=== PATIENT | female | born 1975 | race Two or more races ===

== ENCOUNTER 2018-03-04 18:06 | Emergency (ER) | payer MEDICAID ==
[2018-03-04] MEDS ORDERED: Sodium Chloride 0.9% 10 ML Syringe FLUSH PRN (18:41)
[2018-03-04] MEDS ORDERED: Ondansetron 4 MG/2 ML SDV IVPUSH ONE (18:41)
[2018-03-04] MEDS ORDERED: Famotidine 20 MG/2 ML SDV IVPUSH ONE (18:41)
[2018-03-04] MEDS ORDERED: HYDROmorphone 0.5 MG/0.5 ML SYRINGE IVPUSH ONE ×2 (18:41→19:52)
[2018-03-04] MEDS ORDERED: Sodium Chloride 0.9% 1,000 ML IV SCH (18:45)
--- NOTE | 2018-03-04 20:17 | EDM.PDOC ---
ED HPI GENERAL MEDICAL PROBLEM - General Chief Complaint: Flank Pain Stated Complaint: KIDNEY PAIN/STOMACH PAIN Time Seen by Provider: 03/04/18 18:31 Source of Information: Reports: Patient, RN Notes Reviewed - History of Present Illness INITIAL COMMENTS - FREE TEXT/NARRATIVE: 42 year old female with upper abd pain that radiates to back, some nausea, has not vomited. Worried about possible kidney stone. Also hx of gastritis. No chest pain or difficulty breathing. no fever or chills. Left Flank Pain Score (Numeric/FACES): 7 - Related Data Allergies Allergy/AdvReac Type Severity Reaction Status Date / Time azithromycin Allergy Vomiting Verified 03/04/18 18:21 codeine Allergy Vomiting Verified 03/04/18 18:21 doxycycline Allergy Vomiting Verified 03/04/18 18:21 morphine Allergy Vomiting Verified 03/04/18 18:21 Penicillins Allergy Vomiting Verified 03/04/18 18:21 Home Meds: Home Meds Famotidine 40 mg PO DAILY 03/04/18 [History] Fexofenadine [Shefali] 180 mg PO DAILY 03/04/18 [History] Fluticasone Propionate [Flovent] 1 puff IH BID 03/04/18 [History] Metoprolol Succinate 50 mg PO DAILY 03/04/18 [History] Triamterene/Hydrochlorothiazid [Triamterene-HCTZ 37.5-25 MG] 1 each PO DAILY [History] amLODIPine [Norvasc] 5 mg PO DAILY 03/04/18 [History] tiZANidine HCl [Tizanidine HCl] 4 mg PO DAILY 03/04/18 [History] Past Medical History Cardiovascular History: Reports: Hypertension Gastrointestinal History: Reports: Diverticulosis, GERD, Other (See Below) Genitourinary History: Reports: Renal Calculus [employer] History: Reports: Neurological History: Reports: Migraines - Past Surgical History GI Surgical History: Reports: Hernia Repair/Other Female Surgical History: Reports: Section, Lithotripsy/ESWL Social & Family History - Tobacco Use Smoking Status *Q: Never Smoker Second Hand Smoke Exposure: No - Caffeine Use Caffeine Use: Reports: None - Recreational Drug Use Recreational Drug Use: No ED ROS GENERAL - Review of Systems Review Of Systems: See Below Constitutional: Denies: Fever, Chills, Diaphoresis HEENT: Reports: No Symptoms Respiratory: Denies: Shortness of Breath, Pleuritic Chest Pain Cardiovascular: Denies: Chest Pain GI/Abdominal: Reports: Abdominal Pain, Nausea. Denies: Diarrhea, Vomiting Musculoskeletal: Reports: Back Pain Skin: Reports: No Symptoms Neurological: Reports: No Symptoms ED EXAM, GI/ABD - Physical Exam Exam: See Below General Appearance: Alert, Mild Distress Eyes: Bilateral: Normal Appearance Throat/Mouth: Normal Inspection, Normal Oropharynx Neck: Supple, Full Range of Motion Respiratory/Chest: No Respiratory Distress, Lungs Clear, Normal Breath Sounds Cardiovascular: Regular Rate, Rhythm GI/Abdominal Exam: Soft, Tender (upper mid abd). No: Guarding, Rebound Back Exam: No: CVA Tenderness (L), CVA Tenderness (R) Extremities: Normal Inspection, Normal Range of Motion Neurological: Alert, Oriented, No Motor/Sensory Deficits Skin Exam: Warm, Dry, Normal Color Course - Vital Signs Last Recorded V/S: Last Vital Signs Temp 98 F 03/04/18 18:18 Pulse 72 03/04/18 18:18 Resp 18 03/04/18 18:18 BP 157/112 H 03/04/18 18:18 Pulse Ox 100 03/04/18 18:18 - Orders/Labs/Meds Orders: Active Orders 24 hr Category Date Time Status Peripheral IV Care [RC] . DIRECTED Care 03/04/18 18:42 Active Abdomen 2V AP Flat Upright [CR] Stat Exams 03/04/18 19:52 Taken UA W/MICROSCOPIC [URIN] Stat Lab 03/04/18 18:25 Ordered Peripheral IV Insertion Adult [OM.PC] Stat Oth 03/04/18 18:41 Ordered Labs: Laboratory Tests 03/04/18 03/04/18 03/04/18 Range/Units 18:25 18:35 18:35 WBC 8.56 (3.98-10.04) K/mm3 RBC 4.42 (3.98-5.22) M/mm3 Hgb 12.9 (11.2-15.7) gm/L Hct 39.0 (34.1-44.9) % MCV 88.2 (79.4-94.8) fl MCH 29.2 (25.6-32.2) pg MCHC 33.1 (32.2-35.5) g/dl RDW Std Deviation 41.3 (36.4-46.3) fL Plt Count 409 H (182-369) K/mm3 MPV 9.9 (9.4-12.3) fl Neut % (Auto) 54.8 (34.0-71.1) % Lymph % (Auto) 30.3 (19.3-51.7) % Zapata % (Auto) 13.1 H (4.7-12.5) % Eos % (Auto) 1.2 (0.7-5.8) Baso % (Auto) 0.4 (0.1-1.2) % Neut # (Auto) 4.70 (1.56-6.13) K/mm3 Lymph # (Auto) 2.59 (1.18-3.74) K/mm3 [place]ata # (Auto) 1.12 H (0.24-0.36) K/mm3 Eos # (Auto) 0.10 (0.04-0.36) K/mm3 Baso # (Auto) 0.03 (0.01-0.08) K/mm3 Sodium 136 (136-145) mEq/L Potassium 3.2 L (3.5-5.1) mEq/L Chloride 100 (98-107) mEq/L Carbon Dioxide 24 (21-32) mEq/L Anion Gap 15.2 H (5-15) BUN 15 (7-18) mg/dL Creatinine 0.9 (0.55-1.02) mg/dL Est Cr Clr Drug Dosing 65.98 mL/min Estimated GFR (MDRD) > 60 (>60) mL/min BUN/Creatinine Ratio 16.7 (14-18) Glucose 84 (74-106) mg/dL Calcium 9.4 (8.5-10.1) mg/dL Total Bilirubin 0.2 (0.2-1.0) mg/dL AST 17 (15-37) U/L ALT 19 (14-59) U/L Alkaline Phosphatase 86 (46-116) U/L Total Protein 8.9 H (6.4-8.2) g/dl Albumin 4.4 (3.4-5.0) g/dl Globulin 4.5 gm/dL Albumin/Globulin Ratio 1.0 (1-2) Lipase 67 L (73-393) U/L Urine Color Yellow (Yellow) Urine Appearance Clear (Clear) Urine pH 7.0 (5.0-8.0) Ur Specific Chandler 1.020 (1.005-1.030) Urine Protein Negative (Negative) Urine Glucose (UA) Negative (Negative) Urine Ketones Negative (Negative) Urine Occult Blood Negative (Negative) Urine Nitrite Negative (Negative) Urine Bilirubin Negative (Negative) Urine Urobilinogen 0.2 (0.2-1.0) Ur Leukocyte Esterase Negative (Negative) Urine RBC Not seen (0-5) /hpf Urine WBC 0-5 (0-5) /hpf Ur Epithelial Cells 5-10 H (0-5) /hpf Urine Bacteria Not seen (FEW) /hpf Urine Mucus Not seen (FEW) /hpf Meds: Medications Discontinued Medications Generic Name Dose Route Start Last Admin Trade Name Freq PRN Reason Stop Dose Admin Famotidine 20 mg 03/04/18 18:41 03/04/18 18:59 Pepcid IVPUSH 03/04/18 18:42 20 mg ONETIME ONE Administration Hydromorphone HCl 0.5 mg 03/04/18 18:41 03/04/18 18:56 Dilaudid IVPUSH 03/04/18 18:42 0.5 mg ONETIME ONE Administration Hydromorphone HCl 0.5 mg 03/04/18 19:52 03/04/18 20:12 Dilaudid IVPUSH 03/04/18 19:53 0.5 mg ONETIME ONE Administration Sodium Chloride 1,000 mls @ 999 mls/hr 03/04/18 18:45 03/04/18 18:54 Normal Saline IV 999 mls/hr ONETIME GODWIN Administration Magnesium Citrate 296 ml 03/04/18 20:30 03/04/18 20:45 Citrate Of Magnesia PO 03/04/18 20:31 296 ml ONETIME ONE Administration Metoclopramide HCl 5 mg 03/04/18 20:30 03/04/18 20:44 Reglan IVPUSH 03/04/18 20:31 5 mg ONETIME ONE Administration Ondansetron HCl 4 mg 03/04/18 18:41 03/04/18 18:54 Zofran IVPUSH 03/04/18 18:42 4 mg ONETIME ONE Administration Sodium Chloride 10 ml 03/04/18 18:41 03/04/18 18:57 Saline Flush FLUSH 10 ml ASDIRECTED PRN Administration Keep Vein Open - Re-Assessments/Exams Free Text/Narrative Re-Assessment/Exam: 03/04/18 22:03 labs are good, increased stool in colon, no hematuria, discharge instr. as documented. Departure - Departure Time of Disposition: 20:44 Disposition: Home, Self-Care 01 Condition: Fair Clinical Impression: Gastritis Qualifiers: Gastritis type: unspecified gastritis Chronicity: unspecified Gastritis bleeding: without bleeding Qualified Code(s): K29.70 - Gastritis, unspecified, without bleeding Constipation Qualifiers: Constipation type: unspecified constipation type Qualified Code(s): K59.00 - Constipation, unspecified - Discharge Information Instructions: Gastritis, Adult, Constipation, Adult Referrals: PCP,Not In Area [Primary Care Provider] - Forms: ED Department Discharge Additional Instructions: clear liquids until tomorrow afternoon, than careful bland diet as tolerated, mag citrate, drink 1/2 bottle tonight to help clear out your colon, drink the remainder tomorrow if no BM by tomorrow noon, follow up clinic as needed. Return to ED as needed is symptoms worsening in any way. - My Orders Last 24 Hours: My Active Orders 03/04/18 18:25 UA W/MICROSCOPIC [URIN] Stat 03/04/18 18:41 Peripheral IV Insertion Adult [OM.PC] Stat 03/04/18 18:42 Peripheral IV Care [RC] . DIRECTED 03/04/18 19:52 Abdomen 2V AP Flat Upright [CR] Stat - Assessment/Plan Last 24 Hours: My Active Orders 03/04/18 18:25 UA W/MICROSCOPIC [URIN] Stat 03/04/18 18:41 Peripheral IV Insertion Adult [OM.PC] Stat 03/04/18 18:42 Peripheral IV Care [RC] . DIRECTED 03/04/18 19:52 Abdomen 2V AP Flat Upright [CR] Stat
[2018-03-04] MEDS ORDERED: Metoclopramide 10 MG/2 ML SDV IVPUSH ONE (20:30)
[2018-03-04] MEDS ORDERED: Magnesium Citrate Solution 296 ML Bottle PO ONE (20:30)
--- NOTE | 2018-03-05 07:22 | CR ---
Abdomen: Supine and upright views of the abdomen were obtained. Comparison: No previous study. Bowel gas pattern is normal. Small calcific density appears to be present within the upper right abdomen most likely representing small nonobstructing renal stone. No other abnormal calcifications are seen. No soft tissue abnormality is seen. Bony structures appear within normal limits. Impression: 1. Small calcification with the upper right abdomen most likely representing small nonobstructing renal stone. 2. Two-view abdominal x-ray is otherwise unremarkable. Diagnostic code #2
== END 2018-03-04 20:52 | disposition home or self-care (01) ==
LOC: JD.ED 18:06
DX: K29.70 Gastritis, unspecified, without bleeding (principal); K59.00 Constipation, unspecified; I10 Essential (primary) hypertension; Z88.1 Allergy status to other antibiotic agents; Z88.8 Allergy status to other drugs, medicaments and biological substances; Z88.0 Allergy status to penicillin; Z88.5 Allergy status to narcotic agent; Z79.899 Other long term (current) drug therapy
CPT/HCPCS: 36415; 74019; 80053; 81001; 83690; 85025; 96361; 96374; 96375; 96376; 99284; A9270; J1170; J2405; J2765; J7040; J7050; 99283

== ENCOUNTER 2018-11-12 08:32 | Emergency (ER) | payer MEDICAID ==
[2018-11-12] MEDS ORDERED: Orphenadrine 100 MG Tab.ER PO STA (08:58)
[2018-11-12] MEDS ORDERED: Ondansetron 4 MG Tab.DIS PO ONE (08:58)
--- NOTE | 2018-11-12 09:06 | EDM.PDOC ---
ED HPI GENERAL MEDICAL PROBLEM - General Chief Complaint: Back Pain or Injury Stated Complaint: BACK PAIN AND VERTIGO Time Seen by Provider: 11/12/18 08:44 Source of Information: Reports: Patient, RN Notes Reviewed History Limitations: Reports: No Limitations - History of Present Illness INITIAL COMMENTS - FREE TEXT/NARRATIVE: The patient states that she has a history of low back pain, due to arthritis, with occasional low back pain flares. She states that she leaned forward this morning to tie her shoes, and "threw my back out". She is complaining of pain across her lower back, but without radiation down either lower extremity. The patient also reports that she has a history of vertigo due to BPPV, and that she is prescribed meclizine, but ran out. She reports nausea associated with her vertigo. She has been referred to ENT in the past, but did not go. She was unaware that BPPV can be definitively treated with canalith repositioning maneuvers. The patient's PCP is Katelyn Pablo. lower back Pain Score (Numeric/FACES): 10 - Related Data Allergies Allergy/AdvReac Type Severity Reaction Status Date / Time azithromycin Allergy Vomiting Verified 11/12/18 08:43 codeine Allergy Vomiting Verified 11/12/18 08:43 doxycycline Allergy Vomiting Verified 11/12/18 08:43 morphine Allergy Vomiting Verified 11/12/18 08:43 Penicillins Allergy Vomiting Verified 11/12/18 08:43 Home Meds: Home Meds Famotidine 40 mg PO DAILY 03/04/18 [History] Fexofenadine [Shefali] 180 mg PO DAILY 03/04/18 [History] Fluticasone Propionate [Flovent] 1 puff IH BID 03/04/18 [History] Metoprolol Succinate 50 mg PO DAILY 03/04/18 [History] Triamterene/Hydrochlorothiazid [Triamterene-HCTZ 37.5-25 MG] 1 each PO DAILY [History] amLODIPine [Norvasc] 5 mg PO DAILY 03/04/18 [History] tiZANidine HCl [Tizanidine HCl] 4 mg PO DAILY 03/04/18 [History] Meclizine [Antivert] 25 mg PO Q6H PRN #20 tab 11/12/18 [Rx] Ondansetron [Zofran ODT] 1 tab PO Q8H PRN #10 tab.dis 11/12/18 [Rx] Orphenadrine [Norflex] 1 tab PO Q12H PRN #14 tab.er 11/12/18 [Rx] Past Medical History HEENT History: Reports: Other (See Below) (Benign paroxysmal positional vertigo (BPPV)) Cardiovascular History: Reports: Hypertension Gastrointestinal History: Reports: Diverticulosis, Gastritis, GERD Genitourinary History: Reports: Renal Calculus [employer]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: Musculoskeletal History: Reports: Arthritis, Back Pain, Chronic Neurological History: Reports: Migraines - Past Surgical History HEENT Surgical History: Reports: Adenoidectomy, Tonsillectomy GI Surgical History: Reports: Hernia, Abdominal (paraumbilical) Female Surgical History: Reports: Section (x 2), Lithotripsy/ESWL ( x 2), Tubal Ligation Social & Family History - Family History Family Medical History: Noncontributory - Tobacco Use Smoking Status *Q: Never Smoker - Caffeine Use Caffeine Use: Reports: Soda - Alcohol Use Alcohol Use History: Yes Alcohol Use Frequency: Rarely - Recreational Drug Use Recreational Drug Use: No - Living Situation & Occupation Living situation: Reports: , with Family (2 sons) 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 ED EXAM, GENERAL - Physical Exam Exam: See Below Exam Limited By: No Limitations General Appearance: Alert, WD/WN, No Apparent Distress Eye Exam: Bilateral Eye: EOMI, Normal Inspection Ears: Normal External Exam, Hearing Grossly Normal Nose: Normal Inspection Throat/Mouth: Normal Inspection, Normal Lips, Normal Voice, No Airway Compromise Head: Atraumatic, Normocephalic Neck: Normal Inspection, Full Range of Motion Respiratory/Chest: No Respiratory Distress, Lungs Clear, Normal Breath Sounds, No Accessory Muscle Use Cardiovascular: Normal Peripheral Pulses, Regular Rate, Rhythm, No Edema, No Gallop, No JVD, No Murmur, No Rub Peripheral Pulses: 4+: Radial (L), Radial (R) GI/Abdominal: Normal Bowel Sounds, Soft, Non-Tender, No Organomegaly, No Distention, No Abnormal Bruit, No Mass (Female) Exam: Deferred Rectal (Female) Exam: Deferred Back Exam: Normal Inspection, Decreased Range of Motion Extremities: Normal Inspection, Normal Range of Motion, No Pedal Edema, Normal Capillary Refill Neurological: Alert, Oriented, Normal Cognition, No Motor/Sensory Deficits Psychiatric: Normal Affect Skin Exam: Warm, Dry, Intact, Normal Color, No Rash Course - Vital Signs Last Recorded V/S: Last Vital Signs Temp 36.1 C 11/12/18 08:40 Pulse 59 L 11/12/18 08:40 Resp 18 11/12/18 08:40 BP 149/83 H 11/12/18 08:40 Pulse Ox 100 11/12/18 08:40 - Orders/Labs/Meds Meds: Medications Discontinued Medications Generic Name Dose Route Start Last Admin Trade Name Winnie PRN Reason Stop Dose Admin Meclizine HCl 25 mg 11/12/18 08:58 11/12/18 09:09 Antivert PO 11/12/18 08:59 25 mg ONETIME STA Administration Ondansetron HCl 4 mg 11/12/18 08:58 11/12/18 09:09 Zofran Odt PO 11/12/18 08:59 4 mg ONETIME ONE Administration Orphenadrine Citrate 100 mg 11/12/18 08:58 11/12/18 09:09 Norflex PO 11/12/18 08:59 100 mg ONETIME STA Administration - Re-Assessments/Exams Free Text/Narrative Re-Assessment/Exam: 11/12/18 08:59 The patient presents with chronic/recurrent low back pain and vertigo due to BPPV. With respect to her vertigo, the patient states that she has run out of her meclizine. While it is true that emergency departments, in general, should not refill medications, I don't believe it would be inappropriate for me to provide the patient a prescription for meclizine, as well as some Zofran. In addition, while the patient has been referred to ENT in [place] the past, she did not follow through. I explained that the purpose of going to an ENT is to get definitive treatment for BPPV through canalith repositioning maneuvers. I will therefore refer her to Dr. Hernandez. With respect to the patient's low back pain, she states that it is due to arthritis, although then later stated that it is due to a herniated intravertebral disc. I explained to the patient that I will prescribe a muscle relaxant Norflex, however, I am not going to prescribe an opioid. At that point , the patient became quite hostile and pushed me repeatedly to prescribe a narcotic. She stated that she has already tried Tylenol and Motrin, and that they don't do anything for her, which is curious, because she also stated that this current flare of her low back pain just started this morning when she bent down to tie her shoes. I explained that narcotics are not a good choice for the treatment of muscle spasm, as one of the side effects of opioids is itself muscle spasm. Additionally, I explained that opioids are not generally recommended for the treatment of chronic or recurrent low back pain, and that, in addition, it is not appropriate for emergency departments to prescribe narcotics for chronic or recurring conditions, such as low back pain. If the patient needs a narcotic for her low back pain, she will need to see her single prescriber, in this case, her PCP, Katelyn Pablo, and if her pain is due to a herniated intravertebral disc, then she should consider surgery. None of these explanations seemed to satisfy the patient. She remained hostile and sarcastic, and, unfortunately, meets criterion for drug-seeking behavior. For today's purposes, the patient will receive a single dose of meclizine, Zofran, and Norflex here in the ED. I will send prescriptions for the same to the [place] [facility]. I will refer her to Dr. Hernandez. 11/12/18 09:33 Notified that the patient requested a note for work for today. Departure - Departure Time of Disposition: 09:06 Disposition: Home, Self-Care 01 Condition: Fair Clinical Impression: Recurrent low back pain, BPPV (benign paroxysmal positional vertigo), Encounter for medication refill, Drug-seeking behavior - Discharge Information *PRESCRIPTION DRUG MONITORING PROGRAM REVIEWED*: Not Applicable *COPY OF PRESCRIPTION DRUG MONITORING REPORT IN PATIENT BUSTER: Not Applicable Prescriptions: Meclizine [Antivert] 25 mg PO Q6H PRN #20 tab PRN Reason: Dizziness Ondansetron [Zofran ODT] 1 tab PO Q8H PRN #10 tab.dis PRN Reason: Nausea/Vomiting Orphenadrine [Norflex] 1 tab PO Q12H PRN #14 tab.er PRN Reason: Muscle Spasm Instructions: Vertigo, [id number], Back Pain, Adult, [id number] Referrals: Katelyn Pablo NP [Primary Care Provider] - Robert Hernandez MD [Ordering Only Provider] - Forms: ED Department Discharge, ED Return to Work/School Form Additional Instructions: You were seen in the emergency room for recurrent low back pain, and recurrent vertigo with nausea. You were given 1 dose each of the anti-dizziness medicine meclizine, the anti- nausea medicine Zofran, and the muscle relaxant Norflex. Prescriptions for each of these have been sent to the [facility], located at [address] , in [place]. Take one tablet of meclizine up to every 6 hours, as needed for dizziness. Do not drive or operate heavy machinery for 10 hours after taking meclizine. Dissolve one tablet of Zofran on your tongue up to every 8 hours, as needed for nausea/vomiting. Take one tablet of Norflex every 12 hours, as needed for muscle spasms starting this evening, , 11/12/2018. In addition, you may also take [id number] ibuprofen, 2-3 tablets (400-600 mg) every 8 hours, with food, as needed for back pain. Follow up with the ENT Dr. Hernandez, in [place], at the next available appointment. Follow-up with your PCP, Katelyn Pablo, as needed. If any other problems, please do not hesitate to return to the ER.
== END 2018-11-12 09:30 | disposition home or self-care (01) ==
LOC: JD.ED 08:32
DX: M54.5 Low back pain (principal); H81.10 Benign paroxysmal vertigo, unspecified ear; Z76.5 Malingerer [conscious simulation]; I10 Essential (primary) hypertension; Z79.899 Other long term (current) drug therapy; Z88.1 Allergy status to other antibiotic agents; Z88.5 Allergy status to narcotic agent; Z88.0 Allergy status to penicillin
CPT/HCPCS: 99283; A9270

== ENCOUNTER 2019-02-13 01:05 | Emergency (ER) | payer SELFPAY ==
--- NOTE | 2019-02-13 01:56 | EDM.PDOC ---
ED HPI GENERAL MEDICAL PROBLEM - General Chief Complaint: Genitourinary Problem Stated Complaint: POSS UTI Time Seen by Provider: 02/13/19 01:47 - History of Present Illness INITIAL COMMENTS - FREE TEXT/NARRATIVE: 43-year-old female presents emergency room with dysuria. Patient developed burning and frequency with urination on Friday this really worsened last night and has gotten quite worse during the course of Friday. She denies any fevers or chills but has been nauseated at times. The pain seems to be in the area of her bladder and in her mid back. Patient has had bladder infections the past but it's been quite a long time. Vaginal Pain Score (Numeric/FACES): 8 - Related Data Allergies Allergy/AdvReac Type Severity Reaction Status Date / Time azithromycin Allergy Vomiting Verified 02/13/19 01:25 codeine Allergy Vomiting Verified 02/13/19 01:25 doxycycline Allergy Vomiting Verified 02/13/19 01:25 morphine Allergy Vomiting Verified 02/13/19 01:25 Penicillins Allergy Vomiting Verified 02/13/19 01:25 Home Meds: Home Meds Famotidine 40 mg PO DAILY 03/04/18 [History] Fexofenadine [Shefali] 180 mg PO DAILY 03/04/18 [History] Fluticasone Propionate [Flovent] 1 puff IH BID 03/04/18 [History] Metoprolol Succinate 50 mg PO DAILY 03/04/18 [History] Triamterene/Hydrochlorothiazid [Triamterene-HCTZ 37.5-25 MG] 1 each PO DAILY [History] amLODIPine [Norvasc] 5 mg PO DAILY 03/04/18 [History] tiZANidine HCl [Tizanidine HCl] 4 mg PO DAILY 03/04/18 [History] Meclizine [Antivert] 25 mg PO Q6H PRN #20 tab 11/12/18 [Rx] Ondansetron [Zofran ODT] 1 tab PO Q8H PRN #10 tab.dis 11/12/18 [Rx] Orphenadrine [Norflex] 1 tab PO Q12H PRN #14 tab.er 11/12/18 [Rx] Nitrofurantoin Monohyd/M-Cryst [Macrobid 100 mg Capsule] 100 mg PO Q12H #14 capsule 02/13/19 [Rx] Phenazopyridine HCl [Pyridium] 100 mg PO Q8H #5 tablet 02/13/19 [Rx] Past Medical History HEENT History: Reports: Other (See Below) Cardiovascular History: Reports: Hypertension Gastrointestinal History: Reports: Diverticulosis, Gastritis, GERD Genitourinary History: Reports: Renal Calculus [employer] History: Reports: Musculoskeletal History: Reports: Arthritis, Back Pain, Chronic Neurological History: Reports: Migraines - Past Surgical History HEENT Surgical History: Reports: Adenoidectomy, Tonsillectomy GI Surgical History: Reports: Hernia, Abdominal Female Surgical History: Reports: Section, Lithotripsy/ESWL, Tubal Ligation Social & Family History - Family History Family Medical History: Noncontributory - Tobacco Use Smoking Status *Q: Never Smoker - Caffeine Use Caffeine Use: Reports: Coffee - Recreational Drug Use Recreational Drug Use: No - Living Situation & Occupation Living situation: Reports: , with Family (2 sons) 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 Denies: Vomiting : Reports: Dysuria, Frequency. Denies: Flank Pain, Hematuria ED EXAM, RENAL/ - Physical Exam Exam: See Below Exam Limited By: No Limitations General Appearance: Alert, No Apparent Distress Head: Atraumatic, Normocephalic Neck: Normal Inspection, Supple, Non-Tender, Full Range of Motion Respiratory/Chest: No Respiratory Distress, Lungs Clear, Normal Breath Sounds Cardiovascular: Normal Peripheral Pulses, Regular Rate, Rhythm, No Edema, No Murmur GI/Abdominal: Normal Bowel Sounds, Soft, Tender (She hasn't tenderness only in the suprapubic area). No: Distended, Guarding, Rigid, Rebound Back Exam: Normal Inspection, Full Range of Motion, Other (She has some vague low mid back discomfort). No: CVA Tenderness (L), CVA Tenderness (R) Course - Vital Signs Last Recorded V/S: Last Vital Signs Temp 36.2 C 02/13/19 01:22 Pulse 65 02/13/19 01:22 Resp 16 02/13/19 01:22 BP 131/87 02/13/19 01:22 Pulse Ox 99 02/13/19 01:22 - Orders/Labs/Meds Orders: Active Orders 24 hr Category Date Time Status CULTURE URINE [RM] Stat Lab 02/13/19 02:29 Ordered Nitrofurantoin Reynolds/Macrocryst [Macrobid] Med 02/13/19 02:36 Once 100 mg PO ONETIME ONE Phenazopyridine [Urinary Pain Relief] Med 02/13/19 02:36 Once 95 mg PO ONETIME ONE Labs: Laboratory Tests 02/13/19 Range/Units 01:27 Urine Color Light yellow (Yellow) Urine Appearance Slt cloudy H (Clear) Urine pH 6.5 (5.0-8.0) Ur Specific [place] 1.015 (1.005-1.030) Urine Protein 1+ H (Negative) Urine Glucose (UA) Negative (Negative) Urine Ketones Negative (Negative) Urine Occult Blood 2+ H (Negative) Urine Nitrite Negative (Negative) Urine Bilirubin Negative (Negative) Urine Urobilinogen 0.2 (0.2-1.0) Ur Leukocyte Esterase 3+ H (Negative) Urine RBC 10-20 H (0-5) /hpf Urine WBC 20-30 H (0-5) /hpf Urine WBC Clumps Moderate (NOT SEEN) /hpf Ur Squamous Epith Cells 0-5 (0-5) /hpf Urine Bacteria Moderate H (FEW) /hpf Hyaline Casts 0-5 (0-5) /lpf Urine Mucus Rare (FEW) /hpf - Re-Assessments/Exams Free Text/Narrative Re-Assessment/Exam: 02/13/19 02:41 Analysis is suggestive of UTI she'll be started on Pyridium and Macrobid Departure - Departure Time of Disposition: 02:41 Disposition: Home, Self-Care 01 Clinical Impression: UTI, Urinary tract infectious disease - Discharge Information Prescriptions: Nitrofurantoin Monohyd/M-Cryst [Macrobid 100 mg Capsule] 100 mg PO Q12H #14 capsule Phenazopyridine HCl [Pyridium] 100 mg PO Q8H #5 tablet Referrals: Katelyn Pablo [facility] [Primary Care Provider] - Forms: ED Department Discharge Additional Instructions: Return to the emergency room with any questions problems worsening symptoms. Follow-up with your regular provider 3 or 4 days after finishing the antibiotics. Take that antibiotics in the Pyridium as directed your given your first dose of each here in the emergency department - My Orders Last 24 Hours: My Active Orders 02/13/19 02:29 CULTURE URINE [RM] Stat 02/13/19 02:36 Nitrofurantoin Reynolds/Macrocryst [Macrobid] 100 mg PO ONETIME ONE Phenazopyridine [Urinary Pain Relief] 95 mg PO ONETIME ONE - Assessment/Plan Last 24 Hours: My Active Orders 02/13/19 02:29 CULTURE URINE [RM] Stat 02/13/19 02:36 Nitrofurantoin Reynolds/Macrocryst [Macrobid] 100 mg PO ONETIME ONE Phenazopyridine [Urinary Pain Relief] 95 mg PO ONETIME ONE
[2019-02-13] MEDS ORDERED: Nitrofurantoin Monohydrate/Macrocrystalline 100 MG Cap PO ONE (02:36)
[2019-02-13] MEDS ORDERED: Phenazopyridine 95 MG Tab PO ONE (02:36)
[2019-02-13] MEDS ORDERED: Phenazopyridine 95 MG Tab ONE (02:44)
== END 2019-02-13 02:50 | disposition home or self-care (01) ==
LOC: JD.ED 01:05
DX: N39.0 Urinary tract infection, site not specified (principal); I10 Essential (primary) hypertension; Z88.1 Allergy status to other antibiotic agents; Z88.5 Allergy status to narcotic agent; Z88.0 Allergy status to penicillin
CPT/HCPCS: 81001; 87086; 87088; 87186; 99283; A9270

== ENCOUNTER 2019-02-24 06:11 | Emergency (ER) | payer SELFPAY ==
--- NOTE | 2019-02-24 07:02 | EDM.PDOC ---
ED HPI GENERAL MEDICAL PROBLEM - General Chief Complaint: Genitourinary Problem Stated Complaint: FLANK PAIN BOTH SIDES Time Seen by Provider: 02/24/19 06:56 Source of Information: Reports: Patient History Limitations: Reports: No Limitations - History of Present Illness INITIAL COMMENTS - FREE TEXT/NARRATIVE: 43-year-old female presents to the ED with bilateral flank pain. Chills last night with some rigors. Of note she was seen on [address] Green and diagnosed with urinary tract infection and treated with Macrobid 100 mg twice a day for 7 days. She developed flank pain the day after she seen him. The urinalysis and culture grew Escherichia coli sensitive to all antibiotics. Patient has multiple allergies to medications including Zithromax doxycycline, penicillins and some cephalosporins. She presents the ED this morning with bilateral flank pain nausea and clinically appears volume depleted. She states she does have dysuria urgency and frequency. No blood noted in the urine. She has a history of having bilateral kidney stones in the past. Onset: Gradual (Seem to get a little better for about 5 days after starting Macrobid on February 13 and then since that time pain has gradually increased with dysuria urgency and frequency culminating in having to go home from work last night due to bilateral flank pain and lower abdominal pain. Has associated urgency frequency and dysuria.) Onset Date: 02/17/19 Duration: Week(s): Location: Reports: Abdomen, Back (Diffuse lower abdominal pain), Generalized ( bilateral flank pain mild nausea associated with fever chills and rigors. ) Quality: Reports: Ache Severity: Moderate (Both flanks and lower abdomen.) Improves with: Reports: None ( 810) Worsens with: Reports: None Context: Reports: Other (Urinary tract infection.). Denies: Activity, Exercise , Lifting, Sick Contact, Trauma Associated Symptoms: Reports: Cough, Fever/Chills, Loss of Appetite (She states she's had a cough for the last 2 days. Minimally productive), Malaise, Nausea/ Vomiting, Weakness. 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 Bilateral Flank Pain Score (Numeric/FACES): 10 - Related Data Allergies Allergy/AdvReac Type Severity Reaction Status Date / Time azithromycin Allergy Vomiting Verified 02/13/19 01:25 codeine Allergy Vomiting Verified 02/13/19 01:25 doxycycline Allergy Vomiting Verified 02/13/19 01:25 morphine Allergy Vomiting Verified 02/13/19 01:25 Penicillins Allergy Vomiting Verified 02/13/19 01:25 Home Meds: Home Meds Famotidine 40 mg PO DAILY 03/04/18 [History] Fexofenadine [Shefali] 180 mg PO DAILY 03/04/18 [History] Fluticasone Propionate [Flovent] 1 puff IH BID 03/04/18 [History] Metoprolol Succinate 50 mg PO DAILY 03/04/18 [History] Triamterene/Hydrochlorothiazid [Triamterene-HCTZ 37.5-25 MG] 1 each PO DAILY [History] amLODIPine [Norvasc] 5 mg PO DAILY 03/04/18 [History] tiZANidine HCl [Tizanidine HCl] 4 mg PO DAILY 03/04/18 [History] Meclizine [Antivert] 25 mg PO Q6H PRN #20 tab 11/12/18 [Rx] Ondansetron [Zofran ODT] 1 tab PO Q8H PRN #10 tab.dis 11/12/18 [Rx] Orphenadrine [Norflex] 1 tab PO Q12H PRN #14 tab.er 11/12/18 [Rx] Nitrofurantoin Monohyd/M-Cryst [Macrobid 100 mg Capsule] 100 mg PO Q12H #14 capsule 02/13/19 [Rx] Phenazopyridine HCl [Pyridium] 100 mg PO Q8H #5 tablet 02/13/19 [Rx] Acetaminophen/oxyCODONE [Percocet 325-5 MG] 1 each PO Q4H PRN #12 tab 02/24/19 [ Rx] levoFLOXacin [Levaquin] 500 mg PO DAILY #9 tab 02/24/19 [Rx] Past Medical History HEENT History: Reports: Other (See Below) Cardiovascular History: Reports: Hypertension Gastrointestinal History: Reports: Diverticulosis, Gastritis, GERD Genitourinary History: Reports: Renal Calculus 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: Musculoskeletal History: Reports: Arthritis, Back Pain, Chronic Neurological History: Reports: Migraines - Past Surgical History HEENT Surgical History: Reports: Adenoidectomy, Tonsillectomy GI Surgical History: Reports: Hernia, Abdominal Female Surgical History: Reports: Section, Lithotripsy/ESWL, Tubal Ligation Social & Family History - Family History Family Medical History: Noncontributory - Tobacco Use Smoking Status *Q: Unknown Ever Smoked - Caffeine Use Caffeine Use: Reports: Coffee - Living Situation & Occupation Living situation: Reports: , with Family (2 sons) 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 Denies: Constipation , Diarrhea, Difficulty Swallowing, Distension, Flatus, Hematemesis, Hematochezia , Melena, Mucous in Stool, Stool Incontinence, Vomiting, Other : Reports: Dysuria (Bilaterally.), Flank Pain, Frequency, Pain, Urgency. Denies: Hematuria (Lower abdominal pain), Urinary Retention Musculoskeletal: Reports: Back Pain Skin: Reports: No Symptoms (Bilateral flank pain) Neurological: Reports: No Symptoms Psychiatric: Reports: No Symptoms Hematologic/Lymphatic: Reports: No Symptoms Immunologic: Reports: No Symptoms ED EXAM, GI/ABD - Physical Exam Exam: See Below Exam Limited By: No Limitations General Appearance: Alert, WD/WN, Moderate Distress (Appears to be in marked degree of distress. Vital signs are stable with temperature 36.1 pulse of 80 respiratory rate of 18 O2 sats are 100% on room air.) Eyes: Right: Normal Appearance Throat/Mouth: Other (No scleral icterus. Is dry and coated and she appears to be mildly volume depleted.) Neck: Normal Inspection, Supple, Non-Tender, Full Range of Motion. No: Lymphadenopathy (L), Lymphadenopathy (R) Respiratory/Chest: No Respiratory Distress, Lungs Clear, Normal Breath Sounds, No Accessory Muscle Use Cardiovascular: Normal Peripheral Pulses, Regular Rate, Rhythm, No Edema, No Gallop GI/Abdominal Exam: Normal Bowel Sounds, Soft, No Organomegaly, No Abnormal Bruit , No Mass, Pelvis Stable, Guarding, Tender (Ferritin palpation suprapubically.) . No: Rigid, Rebound Back Exam: CVA Tenderness (L), CVA Tenderness (R) (About equal bilaterally.) Extremities: Normal Inspection, Normal Range of Motion, Non-Tender, No Pedal Edema, Normal Capillary Refill, Pedal Edema Neurological: Alert, Oriented, CN II-XII Intact, Normal Cognition Psychiatric: Normal Affect, Normal Mood Skin Exam: Warm, Dry, Intact, Normal Color, No Rash Course - Vital Signs Last Recorded V/S: Last Vital Signs Temp 36.1 C 02/24/19 06:23 Pulse 80 02/24/19 06:23 Resp 18 02/24/19 06:23 BP 137/85 02/24/19 06:23 Pulse Ox 100 02/24/19 06:23 - Orders/Labs/Meds Orders: Active Orders 24 hr Category Date Time Status CULTURE URINE [RM] Stat Lab 02/24/19 06:25 Received Dextrose 5%-0.9% NaCl [Dextrose 5%-Normal Saline] 1,000 Med 02/24/19 07:15 Active ml IV ASDIRECTED Ketorolac [Toradol] Med 02/24/19 07:15 Active 30 mg IVPUSH ONETIME Medication Orders Dextrose/Sodium Chloride (Dextrose 5%-Normal Saline) 1,000 mls @ 999 mls/hr IV ASDIRECTED GODWIN Last Admin: 02/24/19 07:25 Dose: 999 mls/hr Ketorolac Tromethamine (Toradol) 30 mg IVPUSH ONETIME GODWIN Last Admin: 02/24/19 07:24 Dose: 30 mg Labs: Laboratory Tests 02/24/19 02/24/19 02/24/19 Range/Units 06:25 07:25 07:25 WBC 8.85 (3.98-10.04) K/mm3 RBC 3.87 L (3.98-5.22) M/mm3 Hgb 12.4 (11.2-15.7) gm/L Hct 35.5 (34.1-44.9) % MCV 91.7 (79.4-94.8) fl MCH 32.0 (25.6-32.2) pg MCHC 34.9 (32.2-35.5) g/dl RDW Std Deviation 42.3 (36.4-46.3) fL Plt Count 237 (182-369) K/mm3 MPV 10.2 (9.4-12.3) fl Neutrophils % (Manual) 72 H (40-60) % Band Neutrophils % 0 (0-10) % Lymphocytes % (Manual) 25 (20-40) % Atypical Lymphs % 0 % Monocytes % (Manual) 3 (2-10) % Eosinophils % (Manual) 0 L (0.7-5.8) % Basophils % (Manual) 0 L (0.1-1.2) Toxic Granulation 2+ moderate Platelet Estimate Adequate Polychromasia 1+ slight Anisocytosis 1+ slight RBC Morph Comment Abnormal Sodium 138 (136-145) mEq/L Potassium 3.3 L (3.5-5.1) mEq/L Chloride 105 (98-107) mEq/L Carbon Dioxide 22 (21-32) mEq/L Anion Gap 14.3 (5-15) BUN 9 (7-18) mg/dL Creatinine 0.6 (0.55-1.02) mg/dL Est Cr Clr Drug Dosing TNP Estimated GFR (MDRD) > 60 (>60) mL/min BUN/Creatinine Ratio 15.0 (14-18) Glucose 92 (74-106) mg/dL Lactic Acid (0.4-2.0) mmol/L Calcium 8.6 (8.5-10.1) mg/dL Total Bilirubin 0.6 (0.2-1.0) mg/dL AST 26 (15-37) U/L ALT 34 (14-59) U/L Alkaline Phosphatase 94 (46-116) U/L C-Reactive Protein 1.6 H* (<1.0) mg/dL Total Protein 7.4 (6.4-8.2) g/dl Albumin 3.5 (3.4-5.0) g/dl Globulin 3.9 gm/dL Albumin/Globulin Ratio 0.9 L (1-2) Urine Color Red H (Yellow) Urine Appearance Turbid H (Clear) Urine pH 5.0 (5.0-8.0) Ur Specific [place] <=1.005 (1.005-1.030) Urine Protein 3+ H (Negative) Urine Glucose (UA) 1+ H (Negative) Urine Ketones 1+ H (Negative) Urine Occult Blood 3+ H (Negative) Urine Nitrite Positive H (Negative) Urine Bilirubin 3+ H (Negative) Urine Urobilinogen >=8.0 H (0.2-1.0) Ur Leukocyte Esterase 3+ H (Negative) Urine RBC 20-30 H (0-5) /hpf Urine WBC Too numerous to cnt H (0-5) /hpf Ur Epithelial Cells 10-20 H (0-5) /hpf Urine Bacteria Moderate H (FEW) /hpf Urine Mucus Not seen (FEW) /hpf 02/24/19 Range/Units 07:28 WBC (3.98-10.04) K/mm3 RBC (3.98-5.22) M/mm3 Hgb (11.2-15.7) gm/L Hct (34.1-44.9) % MCV (79.4-94.8) fl MCH (25.6-32.2) pg MCHC (32.2-35.5) g/dl RDW Std Deviation (36.4-46.3) fL Plt Count (182-369) K/mm3 MPV (9.4-12.3) fl Neutrophils % (Manual) (40-60) % Band Neutrophils % (0-10) % Lymphocytes % (Manual) (20-40) % Atypical Lymphs % % Monocytes % (Manual) (2-10) % Eosinophils % (Manual) (0.7-5.8) % Basophils % (Manual) (0.1-1.2) Toxic Granulation Platelet Estimate Polychromasia Anisocytosis RBC Morph Comment Sodium (136-145) mEq/L Potassium (3.5-5.1) mEq/L Chloride (98-107) mEq/L Carbon Dioxide (21-32) mEq/L Anion Gap (5-15) BUN (7-18) mg/dL Creatinine (0.55-1.02) mg/dL Est Cr Clr Drug Dosing Estimated GFR (MDRD) (>60) mL/min BUN/Creatinine Ratio (14-18) Glucose (74-106) mg/dL Lactic Acid 0.6 (0.4-2.0) mmol/L Calcium (8.5-10.1) mg/dL Total Bilirubin (0.2-1.0) mg/dL AST (15-37) U/L ALT (14-59) U/L Alkaline Phosphatase (46-116) U/L C-Reactive Protein (<1.0) mg/dL Total Protein (6.4-8.2) g/dl Albumin (3.4-5.0) g/dl Globulin gm/dL Albumin/Globulin Ratio (1-2) Urine Color (Yellow) Urine Appearance (Clear) Urine pH (5.0-8.0) Ur Specific [place] (1.005-1.030) Urine Protein (Negative) Urine Glucose (UA) (Negative) Urine Ketones (Negative) Urine Occult Blood (Negative) Urine Nitrite (Negative) Urine Bilirubin (Negative) Urine Urobilinogen (0.2-1.0) Ur Leukocyte Esterase (Negative) Urine RBC (0-5) /hpf Urine WBC (0-5) /hpf Ur Epithelial Cells (0-5) /hpf Urine Bacteria (FEW) /hpf Urine Mucus (FEW) /hpf Meds: Medications Generic Name Dose Route Start Last Admin Trade Name Freq PRN Reason Stop Dose Admin Dextrose/Sodium Chloride 1,000 mls @ 999 mls/hr 02/24/19 07:15 02/24/19 07:25 Dextrose 5%-Normal Saline IV 999 mls/hr ASDIRECTED GODWIN Administration Ketorolac Tromethamine 30 mg 02/24/19 07:15 02/24/19 07:24 Toradol IVPUSH 30 mg ONETIME GODWIN Administration Discontinued Medications Generic Name Dose Route Start Last Admin Trade Name Freq PRN Reason Stop Dose Admin Hydromorphone HCl 0.5 mg 02/24/19 07:08 02/24/19 07:24 Dilaudid IVPUSH 02/24/19 07:09 0.5 mg ONETIME ONE Administration Levofloxacin/Dextrose 750 mg/ 150 mls @ 100 mls/hr 02/24/19 07:07 02/24/19 07 :24 Premix IV 02/24/19 08:36 100 mls/hr ONETIME ONE Administration Metoclopramide HCl 5 mg 02/24/19 07:08 02/24/19 07:24 Reglan IVPUSH 02/24/19 07:09 5 mg ONETIME ONE Administration - Radiology Interpretation Free Text/Narrative:: 43-year-old female presents to the ED with bilateral flank pain and fever chills riders last evening and diffuse lower abdominal pain. She was diagnosed with urinary tract infection which grew out Escherichia coli sensitive to all antibiotics on February 13. She was treated with 7 day course of Macrobid 100 twice a day. Initially she felt somewhat improved. She did develop some left flank pain the day after she seen Dr. Green in the ED. The she then started to feel somewhat better for 5 days. Since that time she developed recurrence of dysuria urgency frequency and bilateral flank pain. She developed fever chills rigors and chills last night and has bilateral flank pain and diffuse lower abdominal pain. No appetite. Feels very weak. She had to leave work due to illness. Urinalysis done today she is strongly positive for nitrates 3+ leukocytes with clamps and 2 numerous to count WBCs. Repeat urine culture ordered. Due to having bilateral pyelonephritis clinically routine labs will be performed. She has a history of kidney stones and therefore CT the abdomen will be performed since she seems to been developed a recurrent infection after appropriate treatment with antibiotic that the organism i.e. Escherichia coli was sensitive to. Blood cultures 2 will be obtained as well. We'll give her Levaquin 750 mg IV. IV will be D5 normal saline at open. Given Toradol 30 mg IV Dilaudid 0.5 mg IV and Reglan 5 mg IV for pain relief. She is not a diabetic. - Re-Assessments/Exams Free Text/Narrative Re-Assessment/Exam: 02/24/19 08:28 CT scan of the abdomen has been performed. It reveals 2 cysts within the liver. They appear to be unchanged in size. Largest cyst is within the right lobe of the liver. They appear to be benign. Kidneys show several small calcifications within the parenchymal tissue I count 2 on the right side informed the left side. These measure up to 2.5 mm. There are no signs of obstructing uropathy. The ureter on the left does appear to be mildly dilated. Possibly due to ureteritis. There is no perinephric stranding around either kidney indicate severe pyelonephritis. Of note there is a moderate amount of stool throughout the colon compatible with mild constipation. Few diverticuli noted in the sigmoid colon without any evidence of diverticulitis uterus appears to be mildly enlarged with possible leiomyoma. 02/24/19 08:32Labs reveal a normal white count at 8.85. 72% neutrophils with no band cells. Hemoglobin is 12.4 hematocrit of 35.5. Platelet count is 237,000. Sodium 138 potassium slightly low at 3.3. Chloride 105 with a bicarbonate of 22. Anion gap is 14.3. BUN is 9 with a creatinine of 0.6. GFR is greater than 60. Glucose is 92. Lactic acid is 0.6. Calcium is 8.6. Liver function is normal C-reactive protein is mildly elevated at 1.6. Total protein 7.4 and albumin fraction of 3.5. Urinalysis showed 3+ proteinuria 1+ glucosuria 1+ ketonuria and 3+ occult blood. Positive nitrates and 3+ bilirubin leukocyte Estrace was 3 + the micro-shows 20-30 RBCs per high-power field and tumor numerous to count white blood cells. Epithelial cells were 10-20. Moderate urinary bacteria appreciated. Urine culture was ordered. 02/24/19 09:57 patient is completed her initial dose of Levaquin 750 mg IV. She' ll be discharged to home on Levaquin 500 milligrams once daily for another 9 days. She has completed a liter of IV normal saline as well. Departure - Departure Time of Disposition: 09:51 Disposition: Home, Self-Care 01 Condition: Fair Clinical Impression: Pyelonephritis, Pyelonephritis - Discharge Information *PRESCRIPTION DRUG MONITORING PROGRAM REVIEWED*: Not Applicable *COPY OF PRESCRIPTION DRUG MONITORING REPORT IN PATIENT BUSTER: Not Applicable Prescriptions: Acetaminophen/oxyCODONE [Percocet 325-5 MG] 1 each PO Q4H PRN #12 tab PRN Reason: Pain relief levoFLOXacin [Levaquin] 500 mg PO DAILY #9 tab Instructions: Pyelonephritis, Adult, [id number] Referrals: Katelyn Pablo [facility] [Primary Care Provider] - Forms: ED Department Discharge Additional Instructions: Evaluation the emergency room today in regards to recurrent kidney infection versus an infection that never completely cleared up after initial treatment with Macrobid on February 13. Once again the urinalysis was strongly positive for infection. Because of your history of kidney stones a CT of the head was performed to make sure that there were no stones in the drainage system that would be causing you to have recurrent urinary tract infection. CT reveals 4 small stones within the left kidney tissue and 2 on the right side but these have not caused any obstruction of the urinary tract. Lab tests reveal that you have a normal white count with no signs of serious infection yet. You're treated in the ER with a liter of IV fluids and Levaquin 750 mg intravenously. This is to bring the infection under control but quicker. Treatment at home is Levaquin 500 mg once daily every morning for the next 9 days starting tomorrow morning. Continue Motrin 600 mg every 6 hours to reduce pain and inflammation and may use Percocet tablet 5/325 mg tablet one every 4-6 hours as needed for pain relief not controlled by Motrin alone. Expect marked improvement in the next 36-48 hours. Suggest MiraLAX powder 17 g every day to prevent worsening constipation. Significant constipation was appreciated on CT exam today and will be made worse by narcotic pain medication. Take it once daily for the next week to 10 days. - My Orders Last 24 Hours: My Active Orders 02/24/19 06:25 CULTURE URINE [RM] Stat 02/24/19 07:15 Dextrose 5%-0.9% NaCl [Dextrose 5%-Normal Saline] 1,000 ml IV ASDIRECTED Ketorolac [Toradol] 30 mg IVPUSH ONETIME - Assessment/Plan Last 24 Hours: My Active Orders 02/24/19 06:25 CULTURE URINE [RM] Stat 02/24/19 07:15 Dextrose 5%-0.9% NaCl [Dextrose 5%-Normal Saline] 1,000 ml IV ASDIRECTED Ketorolac [Toradol] 30 mg IVPUSH ONETIME
[2019-02-24] MEDS ORDERED: Levofloxacin/Dextrose 5%-Water 750 MG in Premix Bag 1 BAG IV ONE (07:07)
[2019-02-24] MEDS ORDERED: HYDROmorphone 1 MG/ML Syringe IVPUSH ONE (07:08)
[2019-02-24] MEDS ORDERED: Metoclopramide 10 MG/2 ML SDV IVPUSH ONE (07:08)
[2019-02-24] MEDS ORDERED: Dextrose 5%-0.9% NaCl 1,000 ML IV SCH (07:15)
[2019-02-24] MEDS ORDERED: Ketorolac 30 MG/ML SDV IVPUSH SCH (07:15)
--- NOTE | 2019-02-24 09:08 | CT ---
CT abdomen and pelvis Technique: Multiple axial sections were obtained from above the dome of the diaphragm inferiorly through the pubic symphysis. Intravenous and oral contrast not utilized. Comparison: Previous CT abdomen and pelvis exam of 09/10/18. Findings: Slight scarring is noted within the left lung base. Liver shows 2 cysts. Largest cyst measures 3.3 cm in size and smaller cyst measures about 1.4 cm in size. These findings are felt to be fairly stable from prior exam. Spleen appears within normal limits. Adrenal glands show no nodule. Small nonobstructing calculi are seen within both kidneys. Small low density area noted within the mid to lower left kidney believed to represent a small cyst. No abnormal calcifications are seen along the course of the ureters. Pancreas is within normal limits. Gallbladder contains no calcified gallstones. Aorta shows no aneurysm. No retroperitoneal adenopathy or mesenteric abnormalities are seen. No pelvic mass or adenopathy is seen. No free fluid or inflammatory change is seen. Minimal diverticulosis noted within the descending and sigmoid colon without evidence of diverticulitis. Appendix is seen and is normal in size. Bone window settings were reviewed which appear within normal limits for the patient's age. No free fluid or inflammatory changes seen. Impression: 1. Small nonobstructing calculi within both kidneys. 2. Small low density finding within the left kidney believed to represent minimal cyst. 3. No ureteral dilatation or ureteral stone is seen. 4. Other incidental findings. Diagnostic code #2
== END 2019-02-24 10:31 | disposition home or self-care (01) ==
LOC: JD.ED 06:11
DX: N12 Tubulo-interstitial nephritis, not specified as acute or chronic (principal); B96.20 Unspecified Escherichia coli [E. coli] as the cause of diseases classified elsewhere; Z88.1 Allergy status to other antibiotic agents; Z88.5 Allergy status to narcotic agent; Z79.899 Other long term (current) drug therapy
CPT/HCPCS: 36415; 74176; 80053; 81001; 83605; 85007; 85027; 86140; 87086; 87088; 87186; 96361; 96365; 96375; 99284; J1170; J1885; J1956; J2765; J7042

== ENCOUNTER 2019-06-13 18:25 | Emergency (ER) | payer MEDICAID ==
[2019-06-13] MEDS ORDERED: HYDROmorphone 1 MG/ML Syringe IVPUSH STA (19:44)
[2019-06-13] MEDS ORDERED: Ondansetron 4 MG/2 ML SDV IVPUSH ONE (19:44)
[2019-06-13] MEDS ORDERED: Sodium Chloride 0.9% 10 ML Syringe FLUSH PRN (19:45)
[2019-06-13] MEDS ORDERED: Sodium Chloride 0.9% 1,000 ML IV SCH (19:45)
--- NOTE | 2019-06-13 20:03 | EDM.PDOC ---
ED HPI GENERAL MEDICAL PROBLEM - General Chief Complaint: Abdominal Pain Stated Complaint: ABD PAIN Time Seen by Provider: 06/13/19 19:35 Source of Information: Reports: Patient, Old Records History Limitations: Reports: No Limitations - History of Present Illness INITIAL COMMENTS - FREE TEXT/NARRATIVE: Patient is a 43-year-old female who presents to the ED for evaluation of abdominal pain. The patient notes that she has a chronic history of abdominal issues. She states that however she developed some mid epigastric pain yesterday but is not been relieved by much at all. She notes the last time she developed pain like this they told her that she was sick with diverticulitis. She does appreciate some nausea, did have some vomiting last night but no diarrhea. She states she feels as if she she is constipated, but is still defecating normally. She feels as if her abdomen feels swollen. Patient notes she has had some hot and cold flashes lately as well. She states she's not had much for an appetite, she ate a little bit of a grilled cheese this morning but not much at all today for food or water. She further notes a history of kidney stones, a hernia repair 10 years old and 2 C-sections. Patient's primary care provider is Katelyn Pino in [place]. Upper Abdomen Pain Score (Numeric/FACES): 7 - Related Data Allergies Allergy/AdvReac Type Severity Reaction Status Date / Time azithromycin Allergy Vomiting Verified 02/13/19 01:25 codeine Allergy Vomiting Verified 02/13/19 01:25 doxycycline Allergy Vomiting Verified 02/13/19 01:25 morphine Allergy Vomiting Verified 02/13/19 01:25 Penicillins Allergy Vomiting Verified 02/13/19 01:25 Home Meds: Home Meds Famotidine 40 mg PO DAILY 03/04/18 [History] Fluticasone Propionate [Flovent] 1 puff IH DAILY 03/04/18 [History] Metoprolol Succinate 50 mg PO DAILY 03/04/18 [History] amLODIPine [Norvasc] 5 mg PO DAILY 03/04/18 [History] tiZANidine HCl [Tizanidine HCl] 4 mg PO DAILY 03/04/18 [History] Meclizine [Antivert] 25 mg PO Q6H PRN #20 tab 11/12/18 [Rx] Orphenadrine [Norflex] 1 tab PO Q12H PRN #14 tab.er 11/12/18 [Rx] Phenazopyridine HCl [Pyridium] 100 mg PO Q8H #5 tablet 02/13/19 [Rx] Dicyclomine [Bentyl] 20 mg PO QID #28 tablet 06/13/19 [Rx] Past Medical History HEENT History: Reports: Other (See Below) Cardiovascular History: Reports: Hypertension Gastrointestinal History: Reports: Diverticulosis, Gastritis, GERD Genitourinary History: Reports: Renal Calculus [employer] History: Reports: Musculoskeletal History: Reports: Arthritis, Back Pain, Chronic Neurological History: Reports: Migraines - Past Surgical History HEENT Surgical History: Reports: Adenoidectomy, Tonsillectomy GI Surgical History: Reports: Hernia, Abdominal Female Surgical History: Reports: Section, Lithotripsy/ESWL, Tubal Ligation Social & Family History - Family History Family Medical History: Noncontributory - Tobacco Use Smoking Status *Q: Never Smoker - Caffeine Use Caffeine Use: Reports: Soda - Recreational Drug Use Recreational Drug Use: No - Living Situation & Occupation Living situation: Reports: , with Family (2 sons) 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 Denies: Black Stool, Bloody Stool, Constipation, Diarrhea, Hematemesis : Reports: No Symptoms Musculoskeletal: Reports: No Symptoms Skin: Reports: No Symptoms Neurological: Reports: No Symptoms Psychiatric: Reports: No Symptoms Hematologic/Lymphatic: Reports: No Symptoms Immunologic: Reports: No Symptoms ED EXAM, GI/ABD - Physical Exam Exam: See Below Exam Limited By: No Limitations General Appearance: Alert, WD/WN, No Apparent Distress Eyes: Bilateral: Normal Appearance Throat/Mouth: Normal Inspection, Normal Lips, Normal Teeth, Normal Gums, Normal Oropharynx, Normal Voice, No Airway Compromise Head: Atraumatic, Normocephalic Respiratory/Chest: No Respiratory Distress, Lungs Clear, Normal Breath Sounds, No Accessory Muscle Use, Chest Non-Tender Cardiovascular: Normal Peripheral Pulses, Regular Rate, Rhythm, No Murmur GI/Abdominal Exam: Normal Bowel Sounds, Soft, No Distention, No Mass, Tender ( mid-epigastric, but generalized as well) Extremities: Normal Inspection, Normal Capillary Refill Neurological: Alert, Oriented, Normal Cognition, No Motor/Sensory Deficits Psychiatric: Normal Affect, Normal Mood Skin Exam: Warm, Dry, Intact, Normal Color, No Rash Course - Vital Signs Last Recorded V/S: Last Vital Signs Temp 97.8 F 06/13/19 19:08 Pulse 72 06/13/19 19:08 Resp 20 06/13/19 19:08 BP 126/90 06/13/19 19:08 Pulse Ox 97 06/13/19 19:08 - Orders/Labs/Meds Orders: Active Orders 24 hr Category Date Time Status Peripheral IV Care [RC] . DIRECTED Care 06/13/19 19:45 Active Abdomen Pelvis w Cont [CT] Stat Exams 06/13/19 19:44 Taken Sodium Chloride 0.9% [Normal Saline] 1,000 ml Med 06/13/19 19:45 Active IV ASDIRECTED Sodium Chloride 0.9% [Saline Flush] Med 06/13/19 19:45 Active 10 ml FLUSH ASDIRECTED PRN Peripheral IV Insertion Adult [OM.PC] Routine Oth 06/13/19 19:45 Ordered Medication Orders Sodium Chloride (Normal Saline) 1,000 mls @ 999 mls/hr IV ASDIRECTED GODWIN Last Admin: 06/13/19 19:58 Dose: 999 mls/hr Sodium Chloride (Saline Flush) 10 ml FLUSH ASDIRECTED PRN PRN Reason: Keep Vein Open Last Admin: 06/13/19 19:59 Dose: 10 ml Labs: Laboratory Tests 06/13/19 06/13/19 06/13/19 Range/Units 20:04 20:39 20:39 WBC 9.54 (3.98-10.04) K/mm3 RBC 4.16 (3.98-5.22) M/mm3 Hgb 13.2 (11.2-15.7) gm/L Hct 37.3 (34.1-44.9) % MCV 89.7 (79.4-94.8) fl MCH 31.7 (25.6-32.2) pg MCHC 35.4 (32.2-35.5) g/dl RDW Std Deviation 40.5 (36.4-46.3) fL Plt Count 273 (182-369) K/mm3 MPV 10.3 (9.4-12.3) fl Neutrophils % (Manual) 55 (40-60) % Band Neutrophils % 0 (0-10) % Lymphocytes % (Manual) 34 (20-40) % Atypical Lymphs % 0 % Monocytes % (Manual) 9 (2-10) % Eosinophils % (Manual) 2 (0.7-5.8) % Basophils % (Manual) 0 L (0.1-1.2) Platelet Estimate Adequate RBC Morph Comment Normal Sodium 142 (136-145) mEq/L Potassium 3.3 L (3.5-5.1) mEq/L Chloride 109 H (98-107) mEq/L Carbon Dioxide 25 (21-32) mEq/L Anion Gap 11.3 (5-15) BUN 13 (7-18) mg/dL Creatinine 0.6 (0.55-1.02) mg/dL Est Cr Clr Drug Dosing 89.35 mL/min Estimated GFR (MDRD) > 60 (>60) mL/min BUN/Creatinine Ratio 21.7 H (14-18) Glucose 96 (74-106) mg/dL Calcium 8.6 (8.5-10.1) mg/dL Total Bilirubin 0.2 (0.2-1.0) mg/dL GGT 23 (5-55) U/L AST 10 L (15-37) U/L ALT 17 (14-59) U/L Alkaline Phosphatase 71 (46-116) U/L Total Protein 6.9 (6.4-8.2) g/dl Albumin 3.4 (3.4-5.0) g/dl Globulin 3.5 gm/dL Albumin/Globulin Ratio 1.0 (1-2) Lipase 45 L (73-393) U/L Urine Color Yellow (Yellow) Urine Appearance Clear (Clear) Urine pH 6.5 (5.0-8.0) Ur Specific [place] > or = 1.030 (1.005-1.030) Urine Protein Negative (Negative) Urine Glucose (UA) Negative (Negative) Urine Ketones Negative (Negative) Urine Occult Blood Negative (Negative) Urine Nitrite Negative (Negative) Urine Bilirubin Negative (Negative) Urine Urobilinogen 0.2 (0.2-1.0) Ur Leukocyte Esterase Negative (Negative) Urine RBC 0-5 (0-5) /hpf Urine WBC 0-5 (0-5) /hpf Ur Squamous Epith Cells 0-5 (0-5) /hpf Urine Bacteria Few (FEW) /hpf Urine Mucus Few (FEW) /hpf Meds: Medications Generic Name Dose Route Start Last Admin Trade Name Freq PRN Reason Stop Dose Admin Sodium Chloride 1,000 mls @ 999 mls/hr 06/13/19 19:45 06/13/19 19:58 Normal Saline IV 999 mls/hr ASDIRECTED GODWIN Administration Sodium Chloride 10 ml 06/13/19 19:45 06/13/19 19:59 Saline Flush FLUSH 10 ml ASDIRECTED PRN Administration Keep Vein Open Discontinued Medications Generic Name Dose Route Start Last Admin Trade Name Freq PRN Reason Stop Dose Admin Hydromorphone HCl 1 mg 06/13/19 19:44 06/13/19 19:58 Dilaudid IVPUSH 06/13/19 19:45 1 mg ONETIME STA Administration Magnesium Citrate 296 ml 06/13/19 22:56 Citrate Of Magnesia PO 06/13/19 22:57 ONETIME ONE Ondansetron HCl 4 mg 06/13/19 19:44 06/13/19 19:58 Zofran IVPUSH 06/13/19 19:45 4 mg ONETIME ONE Administration - Re-Assessments/Exams Free Text/Narrative Re-Assessment/Exam: 06/13/19 20:03 Patient presents to the ED for the evaluation of abdominal pain I did order a CBC, CMP, lipase, UA, GGT, abdominal pelvis CT with contrast, 1 mg Dilaudid for pain management 4 mg Zofran for nausea management and IV fluids. 06/13/19 22:58 Patient's laboratory evaluation is back in and is within normal limits, CT is back and demonstrates multiple simple hepatic cysts with the largest in the right lobe and measuring about 3.4cm in diameter, and a 170 and a left renal cyst. There was some mild diverticulosis present in the distal colon however there was no inflammation noted around this to suggest diverticulitis. No other acute abnormalities were identified. Patient did have a good amount of stool in her colon, will give her some magnesium citrate and some dicyclomine tablets to trial as she was wondering if she doesn't have some sort of IBS. I did recommend that she follow up with her primary care physician to see about getting tested for IBS. I will only give the patient 1 weeks with a dicyclomine to see if this doesn't help some of her abdominal symptoms. Departure - Departure Time of Disposition: 23:00 Disposition: Home, Self-Care 01 Condition: Fair Clinical Impression: Constipation Qualifiers: Constipation type: unspecified constipation type Qualified Code(s): K59.00 - Constipation, unspecified - Discharge Information *PRESCRIPTION DRUG MONITORING PROGRAM REVIEWED*: No *COPY OF PRESCRIPTION DRUG MONITORING REPORT IN PATIENT BUSTER: No Prescriptions: Dicyclomine [Bentyl] 20 mg PO QID #28 tablet Instructions: Constipation, Adult, [id number], Irritable Bowel Syndrome, Adult Referrals: Katelyn Pablo, [employer] OPERATOR [Primary Care Provider] - Forms: ED Department Discharge, ED Return to Work/School Form Additional Instructions: You were evaluated in the ED today for your abdominal pain. Your laboratory evaluation was within normal limits, your CT did not demonstrate any sort of acute abnormalities as well. He did have quite a bit of stool in her colon which is suggestive of constipation, you were given a bottle of magnesium citrate for management of this please take one half bottle wait a couple hours if you do not have a large bowel movement you may repeat the other half bottle. Further recommend that you keep yourself well-hydrated, and start a stool softener to provide a good bowel regimen. You were given a prescription for dicyclomine tablets, this is for abdominal cramping please take one tablet 4 times daily for the next week to see if this doesn't help, you'll need to follow-up with your primary care physician for continuation of this medication if this provides to relief. Please return to the ED if your symptoms should change or worsen. - My Orders Last 24 Hours: My Active Orders 06/13/19 19:44 Abdomen Pelvis w Cont [CT] Stat 06/13/19 19:45 Peripheral IV Care [RC] . DIRECTED Sodium Chloride 0.9% [Normal Saline] 1,000 ml IV ASDIRECTED Sodium Chloride 0.9% [Saline Flush] 10 ml FLUSH ASDIRECTED PRN Peripheral IV Insertion Adult [OM.PC] Routine - Assessment/Plan Last 24 Hours: My Active Orders 06/13/19 19:44 Abdomen Pelvis w Cont [CT] Stat 06/13/19 19:45 Peripheral IV Care [RC] . DIRECTED Sodium Chloride 0.9% [Normal Saline] 1,000 ml IV ASDIRECTED Sodium Chloride 0.9% [Saline Flush] 10 ml FLUSH ASDIRECTED PRN Peripheral IV Insertion Adult [OM.PC] Routine
[2019-06-13] MEDS ORDERED: Magnesium Citrate Solution 296 ML Bottle PO ONE (22:56)
--- NOTE | 2019-06-14 08:38 | CT ---
CT abdomen and pelvis Technique: Multiple axial sections were obtained from above the dome of the diaphragm inferiorly through the pubic symphysis. Intravenous and oral contrast was utilized. Delayed images were also obtained through the abdomen and pelvis. Comparison: Prior noncontrast CT abdomen and pelvis exam of 02/24/15. Findings: Stable cysts are seen within the liver. Linear density is noted within the left lung base which is stable from prior exam which is compatible with slight scarring. Spleen appears within normal limits. Pancreas is within normal limits. Adrenal glands show no nodule. Kidneys show small cysts which are cortical in location. Kidneys show no hydronephrosis or discrete mass. Kidneys show small nonobstructing calculi on both sides. Gallbladder contains no calcified gallstones. Aorta shows no aneurysm. No retroperitoneal adenopathy or mesenteric abnormalities are seen. No pelvic mass or adenopathy is identified. Appendix is seen and is normal in size. No free fluid or inflammatory change is identified. Several scattered diverticuli are seen within the sigmoid colon with no inflammatory change of diverticulitis. Delayed images show contrast excretion into both ureters with no ureteral dilatation or obstruction. Contrast is noted within the bladder on delayed images. Bone window settings were reviewed which appear within normal limits in appearance. Impression: 1. Stable cysts within the liver as well as renal cysts. Nonobstructing small calculi are seen within both kidneys. 2. Nothing acute is appreciated on CT study of the abdomen and pelvis. Diagnostic code #2 I agree with preliminary report from [facility], finalized on 06/13/19, 11:43 PM Central Time
== END 2019-06-13 23:10 | disposition home or self-care (01) ==
LOC: JD.ED 18:25
DX: K59.00 Constipation, unspecified (principal); I10 Essential (primary) hypertension; Z88.5 Allergy status to narcotic agent; Z88.0 Allergy status to penicillin; Z88.8 Allergy status to other drugs, medicaments and biological substances; Z88.1 Allergy status to other antibiotic agents; Z79.899 Other long term (current) drug therapy; Z98.890 Other specified postprocedural states; Z98.51 Tubal ligation status
CPT/HCPCS: 36415; 74177; 80053; 81001; 82977; 83690; 85007; 85027; 96361; 96374; 96375; 99284; A9270; J1170; J2405; J7040

== ENCOUNTER 2019-06-19 05:40 | Emergency (ER) | payer MEDICAID ==
[2019-06-19] MEDS ORDERED: Famotidine 20 MG/2 ML SDV IVPUSH STA (06:05)
--- NOTE | 2019-06-19 06:09 | EDM.PDOC ---
ED HPI GENERAL MEDICAL PROBLEM - General Chief Complaint: Abdominal Pain Stated Complaint: [facility] Time Seen by Provider: 06/19/19 05:48 Source of Information: Reports: Patient, Family () History Limitations: Reports: No Limitations - History of Present Illness INITIAL COMMENTS - FREE TEXT/NARRATIVE: The patient states that she had 2 syncopal episodes while at work this morning - the first in a bathroom, then a few minutes later, outside of the bathroom. At the time, she states that she was suffering from epigastric pain that has been recurrent for her for years. She states that she felt hot, cold, and clammy. The patient states that the cause of her epigastric pain is unknown. She states that she has undergone both EGDs and colonoscopies while in [place], and was told that she has severe gastritis. She states that she had previously been on a PPI, but is most recently on Pepcid twice a day. She states that she has nausea daily, and had vomiting last weekend. She states that she has alternating constipation and diarrhea. All of these symptoms are chronic. She reports lightheadedness when upright for the past few days. No recent chest discomfort or palpitations. No recent dyspnea. No recent urinary symptoms. No recent fever. The patient's PCP is Katelyn Pablo NP. The patient states that she has an appointment to see a Rehabilitation Inspector in [place], whose name she does not recall, on 08/10/2019. Left Upper Abdomen Pain Score (Numeric/FACES): 8 - Related Data Allergies Allergy/AdvReac Type Severity Reaction Status Date / Time azithromycin Allergy Vomiting Verified 06/19/19 05:42 codeine Allergy Vomiting Verified 06/19/19 05:42 doxycycline Allergy Vomiting Verified 06/19/19 05:42 morphine Allergy Vomiting Verified 06/19/19 05:42 Penicillins Allergy Vomiting Verified 06/19/19 05:42 Home Meds: Home Meds Famotidine 40 mg PO DAILY 03/04/18 [History] Fluticasone Propionate [Flovent] 1 puff IH DAILY 03/04/18 [History] Metoprolol Succinate 50 mg PO DAILY 03/04/18 [History] amLODIPine [Norvasc] 5 mg PO DAILY 03/04/18 [History] tiZANidine HCl [Tizanidine HCl] 4 mg PO DAILY 03/04/18 [History] Meclizine [Antivert] 25 mg PO Q6H PRN #20 tab 11/12/18 [Rx] Orphenadrine [Norflex] 1 tab PO Q12H PRN #14 tab.er 11/12/18 [Rx] Dicyclomine [Bentyl] 20 mg PO QID #28 tablet 06/13/19 [Rx] Esomeprazole Magnesium [Nexium] 1 cap PO QAM #14 capsule. 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: Musculoskeletal History: Reports: Arthritis (spine) Neurological History: Reports: Migraines Psychiatric History: Reports: Other (See Below) (insomnia) - Past Surgical History HEENT Surgical History: Reports: Adenoidectomy, Tonsillectomy GI Surgical History: Reports: Colonoscopy (x 3), EGD (x 4), Hernia, Abdominal ( paraumbilical) Female Surgical History: Reports: Section (x 2), Lithotripsy/ESWL ( x 2), Tubal Ligation (bilateral) Social & Family History - Family History Family Medical History: Noncontributory - Tobacco Use Smoking Status *Q: Never Smoker - Caffeine Use Caffeine Use: Reports: Soda - Alcohol Use Alcohol Use History: Yes Alcohol Use Frequency: Rarely - Recreational Drug Use Recreational Drug Use: No - Living Situation & Occupation Living situation: Reports: , with Spouse, with Family (2 sons) Occupation: Employed ([employer]) ED ROS GENERAL - Review of Systems Review Of Systems: ROS reveals no pertinent complaints other than HPI. Musculoskeletal: Reports: Back Pain (chronic) - Physical Exam Exam: See Below Exam Limited By: No Limitations General Appearance: Alert, WD/WN, No Apparent Distress Eye Exam: Bilateral Eye: EOMI, Normal Inspection Ears: Normal External Exam, Hearing Grossly Normal Nose: Normal Inspection Throat/Mouth: Normal Inspection, Normal Lips, Normal Voice, No Airway Compromise Head Exam: Atraumatic, Normocephalic Neck: Normal Inspection, Full Range of Motion Respiratory/Chest: No Respiratory Distress, Lungs Clear, Normal Breath Sounds, No Accessory Muscle Use Cardiovascular: Normal Peripheral Pulses, Regular Rate, Rhythm, No Edema, No Gallop, No JVD, No Murmur, No Rub GI/Abdominal: Normal Bowel Sounds, Soft, No Organomegaly, No Distention, No Abnormal Bruit, No Mass, Tender (Generalized, but greater in the epigastrium) (Female) Exam: Deferred Rectal (Female) Exam: Deferred Neuro Exam (Abbreviated): Alert, Oriented, Normal Cognition, No Motor/Sensory Deficits Back Exam: Normal Inspection, Full Range of Motion, NT Extremities: Normal Inspection, Normal Range of Motion, No Pedal Edema, Normal Capillary Refill Psychiatric: Normal Affect Skin Exam: Warm, Dry, Intact, Normal Color, No Rash EKG INTERPRETATION EKG Date: 06/19/19 Time: 06:12 Rhythm: NSR Rate (Beats/Min): 60 [place]: LAD-Left [place] Deviation P-Wave: Present QRS: Normal (Late transition) ST-T: Normal QT: Normal Comparison: NA - No Prior EKG Course - Vital Signs Last Recorded V/S: Last Vital Signs Temp 36.9 C 06/19/19 05:43 Pulse 63 06/19/19 05:43 Resp 17 06/19/19 05:43 BP 143/100 H 06/19/19 05:43 Pulse Ox 100 06/19/19 05:43 Orthostatic Blood Pressure [ 135/92 Standing] Orthostatic Blood Pressure [ 129/94 Supine] - Orders/Labs/Meds Orders: Active Orders 24 hr Category Date Time Status EKG Documentation Completion [RC] STAT Care 06/19/19 06:06 Active Orthostatic Vital Signs [RC] STAT Care 06/19/19 06:05 Active Labs: Laboratory Tests 06/19/19 06/19/19 06/19/19 Range/Units 06:29 06:29 06:29 WBC 8.81 (3.98-10.04) K/mm3 RBC 4.87 (3.98-5.22) M/mm3 Hgb 15.3 D (11.2-15.7) gm/L Hct 43.1 (34.1-44.9) % MCV 88.5 (79.4-94.8) fl MCH 31.4 (25.6-32.2) pg MCHC 35.5 (32.2-35.5) g/dl RDW Std Deviation 40.2 (36.4-46.3) fL Plt Count 316 (182-369) K/mm3 MPV 10.3 (9.4-12.3) fl Neutrophils % (Manual) 66 H (40-60) % Band Neutrophils % 0 (0-10) % Lymphocytes % (Manual) 29 (20-40) % Atypical Lymphs % 0 % Monocytes % (Manual) 5 (2-10) % Eosinophils % (Manual) 0 L (0.7-5.8) % Basophils % (Manual) 0 L (0.1-1.2) Platelet Estimate Adequate Plt Morphology Comment Normal RBC Morph Comment Normal D-Dimer, Quantitative 0.64 H (0.19-0.50) mg/L Sodium 137 (136-145) mEq/L Potassium 4.1 (3.5-5.1) mEq/L Chloride 103 (98-107) mEq/L Carbon Dioxide 22 (21-32) mEq/L Anion Gap 16.1 H (5-15) BUN 13 (7-18) mg/dL Creatinine 0.6 (0.55-1.02) mg/dL Est Cr Clr Drug Dosing 85.05 mL/min Estimated GFR (MDRD) > 60 (>60) mL/min BUN/Creatinine Ratio 21.7 H (14-18) Glucose 93 (74-106) mg/dL Calcium 9.0 (8.5-10.1) mg/dL Total Bilirubin 0.3 (0.2-1.0) mg/dL AST 15 (15-37) U/L ALT 17 (14-59) U/L Alkaline Phosphatase 81 (46-116) U/L Total Protein 7.8 (6.4-8.2) g/dl Albumin 3.8 (3.4-5.0) g/dl Globulin 4.0 gm/dL Albumin/Globulin Ratio 1.0 (1-2) Lipase 55 L (73-393) U/L Meds: Medications Discontinued Medications Generic Name Dose Route Start Last Admin Trade Name Freq PRN Reason Stop Dose Admin Famotidine 40 mg 06/19/19 06:05 06/19/19 06:23 Pepcid IVPUSH 06/19/19 06:06 40 mg ONETIME STA Administration - Re-Assessments/Exams Free Text/Narrative Re-Assessment/Exam: 06/19/19 06:07 The patient believes, and by her history, I suspect that she is correct, that her 2 syncopal episodes at work were related to her recurrent epigastric pain. I suspect that her syncope episodes were vagal, however, I have ordered orthostatics, an ECG, and some blood work to evaluate. As her abdomen is soft with normoactive bowel sounds, and she just had a CT scan performed on 06/13/2019 , I do not see a need to repeat a CT scan at this time. 06/19/19 07:40 The patient is not orthostatic. Her CBC is unremarkable. Her CMP is unremarkable. Her lipase is within normal limits at 55. Her D-dimer is mildly elevated at 0.64, not consistent with a pulmonary embolus. 06/19/19 07:51 Test results discussed with the patient. As above, I suspect that her 2 syncopal episodes were vagal in etiology, related to her abdominal pain. I explained that I cannot prove that, as that would require checking her pulse at the time of her syncope, but that no other etiology was found. The patient states that she is currently taking Pepcid 40 mg twice a day, and although the cause of her abdominal pain is unknown at this time, the Pepcid appears to be ineffective. I am recommending at this time that we start her on a PPI, and she prefers a prescription over an OTC, therefore I will prescribe Nexium for 2 weeks. The patient will need to follow-up with her PCP for additional prescriptions, then keep her appointment with the Rehabilitation Inspector in [place] for 08/10/2019. Departure - Departure Time of Disposition: 07:52 Disposition: Home, Self-Care 01 Condition: Good Clinical Impression: Vasovagal syncope - Discharge Information *PRESCRIPTION DRUG MONITORING PROGRAM REVIEWED*: Not Applicable *COPY OF PRESCRIPTION DRUG MONITORING REPORT IN PATIENT BUSTER: Not Applicable Referrals: Katelyn Pablo NP [Primary Care Provider] - Forms: ED Department Discharge Additional Instructions: You were seen in the emergency room after passing out twice at work, related to your recurrent abdominal pain. Workup in the ER included blood work, positional blood pressure checks, and an ECG. Your entire workup was unremarkable. You are not dehydrated. You are not anemic. You do not have a blood clot in your lungs. No abnormalities were found on your ECG. Based on your history, physical exam, and ER tests, the cause of your passing out is most likely vasovagal = your heart slowed down when you were in pain, enough to cause you to pass out. The cause of your abdominal pain is not known, but we are recommending that you switch from Pepcid to Nexium. A prescription for Nexium has been sent to the [facility], located in the [facility] grocery store. Take one tablet of Nexium every morning, 1 hour before breakfast, as prescribed. Since Nexium takes about 3 days before it begins working, you should continue to take your Pepcid as you have been for 3 more days. Follow-up with your PCP, Katelyn Pablo NP, to get an additional prescription for Nexium. Follow-up with the Rehabilitation Inspector in [place] at your previously scheduled appointment on 08/10/2019. If any other problems, please do not hesitate to return to the ER. - My Orders Last 24 Hours: My Active Orders 06/19/19 06:05 Orthostatic Vital Signs [RC] STAT 06/19/19 06:06 EKG Documentation Completion [RC] STAT - Assessment/Plan Last 24 Hours: My Active Orders 06/19/19 06:05 Orthostatic Vital Signs [RC] STAT 06/19/19 06:06 EKG Documentation Completion [RC] STAT
== END 2019-06-19 08:18 | disposition home or self-care (01) ==
LOC: JD.ED 05:40
DX: R55 Syncope and collapse (principal); I10 Essential (primary) hypertension; Z88.5 Allergy status to narcotic agent; Z88.0 Allergy status to penicillin; Z88.1 Allergy status to other antibiotic agents; Z88.8 Allergy status to other drugs, medicaments and biological substances; Z79.899 Other long term (current) drug therapy; Z98.890 Other specified postprocedural states; Z98.51 Tubal ligation status
CPT/HCPCS: 36415; 80053; 83690; 85007; 85027; 85379; 93005; 96374; 99284; J3490

== ENCOUNTER 2019-10-23 14:43 | Emergency (ER) | payer MEDICAID ==
--- NOTE | 2019-10-23 15:15 | EDM.PDOC ---
ED HPI GENERAL MEDICAL PROBLEM - General Chief Complaint: Neurological Problem Stated Complaint: DIZZINESS Time Seen by Provider: 10/23/19 15:01 Source of Information: Reports: Patient History Limitations: Reports: No Limitations - History of Present Illness INITIAL COMMENTS - FREE TEXT/NARRATIVE: The patient presents with generalized weakness and dizziness. She has been diagnosed with Rupert's disease and dizziness. She has good days and bad days and today is a bad day. She was at work and she had to leave to get some rest. She has no other complaints. Onset: Gradual Duration: Day(s): Severity: Moderate Improves with: Reports: None Worsens with: Reports: None Associated Symptoms: Reports: No Other Symptoms - Related Data Allergies Allergy/AdvReac Type Severity Reaction Status Date / Time azithromycin Allergy Vomiting Verified 10/23/19 14:56 codeine Allergy Vomiting Verified 10/23/19 14:56 doxycycline Allergy Vomiting Verified 10/23/19 14:56 morphine Allergy Vomiting Verified 10/23/19 14:56 Penicillins Allergy Vomiting Verified 10/23/19 14:56 Home Meds: Home Meds Famotidine 40 mg PO DAILY 03/04/18 [History] Fluticasone Propionate [Flovent] 1 puff IH DAILY 03/04/18 [History] Metoprolol Succinate 50 mg PO DAILY 03/04/18 [History] amLODIPine [Norvasc] 5 mg PO DAILY 03/04/18 [History] tiZANidine HCl [Tizanidine HCl] 4 mg PO DAILY 03/04/18 [History] Meclizine [Antivert] 25 mg PO Q6H PRN #20 tab 11/12/18 [Rx] Esomeprazole Magnesium [Nexium] 1 cap PO QAM #14 capsule.dr 06/19/19 [Rx] Dicyclomine [Bentyl] 20 mg PO QID PRN 10/23/19 [History] Hydrocortisone 10 mg PO QAM 10/23/19 [History] Hydrocortisone 20 mg PO QPM 10/23/19 [History] Past Medical History HEENT History: Reports: Other (See Below) (BPPV) Cardiovascular History: Reports: Hypertension Gastrointestinal History: Reports: Diverticulosis, Gastritis, GERD Genitourinary History: Reports: Renal Calculus 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: Musculoskeletal History: Reports: Arthritis Neurological History: Reports: Migraines Psychiatric History: Reports: Other (See Below) (insomnia) Endocrine/Metabolic History: Reports: [place]'s Disease - Past Surgical History HEENT Surgical History: Reports: Adenoidectomy, Tonsillectomy GI Surgical History: Reports: Colonoscopy, EGD, Hernia, Abdominal Female Surgical History: Reports: Section, Lithotripsy/ESWL, Tubal Ligation Social & Family History - Family History Family Medical History: Noncontributory - Tobacco Use Smoking Status *Q: Never Smoker - Caffeine Use Caffeine Use: Reports: Soda - Recreational Drug Use Recreational Drug Use: No - Living Situation & Occupation Living situation: Reports: , with Spouse, with Family (2 sons) Occupation: Employed ([employer]) ED ROS GENERAL - Review of Systems Review Of Systems: See Below Constitutional: Reports: Weakness, Fatigue HEENT: Reports: No Symptoms Respiratory: Reports: No Symptoms Cardiovascular: Reports: No Symptoms Endocrine: Reports: No Symptoms GI/Abdominal: Reports: No Symptoms : Reports: No Symptoms Musculoskeletal: Reports: No Symptoms Skin: Reports: No Symptoms Neurological: Reports: Dizziness ED EXAM, NEURO - Physical Exam Exam: See Below Exam Limited By: No Limitations General Appearance: Alert, No Apparent Distress Ears: Normal External Exam Nose: Normal Inspection Head Exam: Atraumatic, Normocephalic Neck: Normal Inspection Respiratory/Chest: No Respiratory Distress, Lungs Clear, Normal Breath Sounds Cardiovascular: Regular Rate, Rhythm, No Edema, No Murmur GI/Abdominal: Soft, Non-Tender, No Organomegaly, No Mass Neurological: Alert, No Motor/Sensory Deficits, Oriented x 3 Course - Vital Signs Last Recorded V/S: Last Vital Signs Temp 98.4 F 10/23/19 14:51 Pulse 71 10/23/19 14:51 Resp 13 10/23/19 14:51 BP 136/91 H 10/23/19 14:51 Pulse Ox 100 10/23/19 14:51 Departure - Departure Time of Disposition: 15:15 Disposition: Home, Self-Care 01 Condition: Good Clinical Impression: Addisons disease, Dizziness - Discharge Information *PRESCRIPTION DRUG MONITORING PROGRAM REVIEWED*: Not Applicable *COPY OF PRESCRIPTION DRUG MONITORING REPORT IN PATIENT BUSTER: Not Applicable Referrals: PCP,Not In Area [Primary Care Provider] - Forms: ED Department Discharge, ED Return to Work/School Form Additional Instructions: Go home and rest. Please return if you are worse. Sepsis Event Note - Evaluation Sepsis Screening Result: No Definite Risk - Focused Exam Vital Signs: Vital Signs Temp Pulse Resp BP Pulse Ox 10/23/19 14:51 98.4 F 71 13 136/91 H 100 Date Exam was Performed: 10/23/19 Time Exam was Performed: 15:10
== END 2019-10-23 15:30 | disposition home or self-care (01) ==
LOC: JD.ED 14:43
DX: E27.1 Primary adrenocortical insufficiency (principal); I10 Essential (primary) hypertension; Z98.890 Other specified postprocedural states; Z98.51 Tubal ligation status; Z79.899 Other long term (current) drug therapy; Z88.0 Allergy status to penicillin; Z88.5 Allergy status to narcotic agent; Z88.1 Allergy status to other antibiotic agents
CPT/HCPCS: 99282; 99283

== ENCOUNTER 2020-01-12 21:41 | Emergency (ER) | payer MEDICAID ==
--- NOTE | 2020-01-12 21:55 | EDM.PDOC ---
ED HPI GENERAL MEDICAL PROBLEM - General Chief Complaint: General Stated Complaint: HAS ARTURO DISEASE/NOT FEELING WELL Time Seen by Provider: 01/12/20 21:49 - History of Present Illness INITIAL COMMENTS - FREE TEXT/NARRATIVE: 45-year-old female presents the emergency room with a 2-day history of diarrhea and now she is feeling worse she has a history of Culberson's disease. Today the patient just has not felt well she has a hard time describing it. However, yesterday she developed some diarrhea is been having multiple loose stools daily nonbloody. She denies any fevers or chills. No significant abdominal pain. No other complaints she is not have any breathing difficulty shortness of breath. She usually uses hydrocortisone 20 mg twice a day. No other medications for her Arturo's disease she is got significant gastritis and is on medication for this. The patient does not believe she is she has had a tubal. - Related Data Allergies Allergy/AdvReac Type Severity Reaction Status Date / Time azithromycin Allergy Vomiting Verified 01/12/20 21:50 codeine Allergy Vomiting Verified 01/12/20 21:50 doxycycline Allergy Vomiting Verified 01/12/20 21:50 morphine Allergy Vomiting Verified 01/12/20 21:50 Penicillins Allergy Vomiting Verified 01/12/20 21:50 Home Meds: Home Meds Famotidine 40 mg PO DAILY 03/04/18 [History] Fluticasone Propionate [Flovent] 1 puff IH DAILY 03/04/18 [History] Metoprolol Succinate 50 mg PO DAILY 03/04/18 [History] amLODIPine [Norvasc] 5 mg PO DAILY 03/04/18 [History] tiZANidine HCl [Tizanidine HCl] 4 mg PO DAILY 03/04/18 [History] Meclizine [Antivert] 25 mg PO Q6H PRN #20 tab 11/12/18 [Rx] Esomeprazole Magnesium [Nexium] 1 cap PO QAM #14 capsule. 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 Denies: Fever, Chills HEENT: Reports: No Symptoms Respiratory: Reports: No Symptoms Cardiovascular: Reports: No Symptoms GI/Abdominal: Reports: Anorexia, Diarrhea. Denies: Abdominal Pain, Nausea, Vomiting : Reports: No Symptoms Musculoskeletal: Reports: No Symptoms Skin: Reports: No Symptoms Neurological: Reports: No Symptoms ED EXAM, GENERAL - Physical Exam Exam: See Below Exam Limited By: No Limitations General Appearance: Alert, No Apparent Distress Eye Exam: Bilateral Eye: Normal Inspection Ears: Normal External Exam, Normal Canal, Hearing Grossly Normal, Normal TMs Nose: Normal Inspection, Normal Mucosa, No Blood Throat/Mouth: Normal Inspection, Normal Lips, Normal Teeth, Normal Gums, Normal Oropharynx, Normal Voice, No Airway Compromise Head: Atraumatic, Normocephalic Neck: Normal Inspection, Supple, Non-Tender, Full Range of Motion Respiratory/Chest: No Respiratory Distress, Lungs Clear, Normal Breath Sounds Cardiovascular: Regular Rate, Rhythm, No Edema, No Murmur GI/Abdominal: Normal Bowel Sounds, Soft, Non-Tender. No: Guarding, Rigid, Rebound Back Exam: Normal Inspection. No: CVA Tenderness (L), CVA Tenderness (R) Neurological: Alert, Oriented, Normal Cognition Course - Vital Signs Last Recorded V/S: Last Vital Signs Temp 36.2 C 01/12/20 21:50 Pulse 90 01/12/20 21:50 Resp 16 01/12/20 21:50 BP 136/94 H 01/12/20 21:50 Pulse Ox 100 01/12/20 21:50 - Orders/Labs/Meds Orders: Active Orders 24 hr Category Date Time Status Influenza Vaccine Charge [RC] .DISCHARGE Care 01/12/20 22:42 Active CORTISOL [REF] Stat Lab 01/12/20 22:29 Received Labs: Laboratory Tests 01/12/20 01/12/20 01/12/20 Range/Units 22:29 22:29 23:45 WBC 9.59 (3.98-10.04) K/mm3 RBC 4.19 (3.98-5.22) M/mm3 Hgb 13.0 D (11.2-15.7) gm/dl Hct 39.6 (34.1-44.9) % MCV 94.5 D (79.4-94.8) fl MCH 31.0 (25.6-32.2) pg MCHC 32.8 (32.2-35.5) g/dl RDW Std Deviation 46.7 H (36.4-46.3) fL Plt Count 294 (182-369) K/mm3 MPV 9.6 (9.4-12.3) fl Neut % (Auto) 74.3 H (34.0-71.1) % Lymph % (Auto) 14.0 L (19.3-51.7) % Worth % (Auto) 10.3 (4.7-12.5) % Eos % (Auto) 0.5 L (0.7-5.8) Baso % (Auto) 0.2 (0.1-1.2) % Neut # (Auto) 7.12 H (1.56-6.13) K/mm3 Lymph # (Auto) 1.34 (1.18-3.74) K/mm3 Worth # (Auto) 0.99 H (0.24-0.36) K/mm3 Eos # (Auto) 0.05 (0.04-0.36) K/mm3 Baso # (Auto) 0.02 (0.01-0.08) K/mm3 Sodium 144 (136-145) mEq/L Potassium 3.6 (3.5-5.1) mEq/L Chloride 107 (98-107) mEq/L Carbon Dioxide 23 (21-32) mEq/L Anion Gap 17.6 H (5-15) BUN 19 H (7-18) mg/dL Creatinine 0.8 (0.55-1.02) mg/dL Est Cr Clr Drug Dosing 63.12 mL/min Estimated GFR (MDRD) > 60 (>60) mL/min BUN/Creatinine Ratio 23.8 H (14-18) Glucose 136 H (74-106) mg/dL Calcium 8.1 L (8.5-10.1) mg/dL Total Bilirubin 0.2 (0.2-1.0) mg/dL AST 13 L (15-37) U/L ALT 27 (14-59) U/L Alkaline Phosphatase 69 (46-116) U/L Total Protein 6.8 (6.4-8.2) g/dl Albumin 3.2 L (3.4-5.0) g/dl Globulin 3.6 gm/dL Albumin/Globulin Ratio 0.9 L (1-2) Urine Color Yellow (Yellow) Urine Appearance Clear (Clear) Urine pH 6.0 (5.0-8.0) Ur Specific Elkin > or = 1.030 (1.005-1.030) Urine Protein Negative (Negative) Urine Glucose (UA) Negative (Negative) Urine Ketones Negative (Negative) Urine Occult Blood Negative (Negative) Urine Nitrite Negative (Negative) Urine Bilirubin Negative (Negative) Urine Urobilinogen 0.2 (0.2-1.0) Ur Leukocyte Esterase Negative (Negative) Meds: Medications Discontinued Medications Generic Name Dose Route Start Last Admin Trade Name Winnie PRN Reason Stop Dose Admin Hydrocortisone Sodium Succinate 100 mg 01/12/20 22:03 01/12/20 22:29 Solu-Cortef IVPUSH 01/12/20 22:04 100 mg ONETIME ONE Administration Sodium Chloride 1,000 mls @ 999 mls/hr 01/12/20 22:03 01/12/20 22:29 Normal Saline IV 01/12/20 23:03 999 mls/hr ONETIME ONE Administration Sodium Chloride 1,000 mls @ 999 mls/hr 01/12/20 23:43 01/13/20 00:02 Normal Saline IV 01/13/20 00:43 999 mls/hr ONETIME ONE Administration Lactated Ringer's 1,000 mls @ 999 mls/hr 01/13/20 01:00 01/13/20 01:17 Ringers, Lactated IV 01/13/20 02:00 999 mls/hr .BOLUS ONE Administration Influenza Virus Vaccine 1 each 01/12/20 22:42 Pharmacy To Dose - Influenza Vaccine IM 01/12/20 22:43 ONETIME ONE Influenza Virus Vaccine 60 mcg 01/12/20 23:00 01/13/20 00:03 Fluzone Quad Syringe IM 01/12/20 23:01 60 mcg .ONCE ONE Administration - Re-Assessments/Exams Free Text/Narrative Re-Assessment/Exam: 01/12/20 23:53 Patient is feeling better after a liter of fluid, not to baseline, but definitely improving and the 100 mg of hydrocortisone. Discussed the situation with Dr. Rangel, our hospitalist, who believes the patient will do fine as an outpatient I will anticipate giving her 2 more liters of fluid and increasing her hydrocortisone for several days and tapering her back down to baseline dose. Patient is quite comfortable with this plan. 01/13/20 02:40 She has had 3 L of fluid and she is feeling better we will discharge at this time Departure - Departure Time of Disposition: 02:40 Disposition: Home, Self-Care 01 Clinical Impression: Diarrhea, Culberson's disease - Discharge Information Referrals: Karthik Goodman PA [Primary Care Provider] - Forms: ED Department Discharge Additional Instructions: Return to the emergency room with any questions problems or worsening symptoms. 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 With your hydrocortisone increase it to 40 mg twice daily for 3 days, then 30 mg twice daily for 3 days, then resume 20 mg twice daily. Follow-up with your regular healthcare provider this next week. Sepsis Event Note - Focused Exam Vital Signs: Vital Signs Temp Pulse Resp BP Pulse Ox 01/12/20 21:50 36.2 C 90 16 136/94 H 100 Date Exam was Performed: 01/13/20 Time Exam was Performed: 02:40 - My Orders Last 24 Hours: My Active Orders 01/12/20 22:29 CORTISOL [REF] Stat 01/12/20 22:42 Influenza Vaccine Charge [RC] .DISCHARGE - Assessment/Plan Last 24 Hours: My Active Orders 01/12/20 22:29 CORTISOL [REF] Stat 01/12/20 22:42 Influenza Vaccine Charge [RC] .DISCHARGE
[2020-01-12] MEDS ORDERED: Sodium Chloride 0.9% 1,000 ML IV ONE ×2 (22:03→23:43)
[2020-01-12] MEDS ORDERED: Hydrocortisone Sodium Succinate 100 MG/2 ML SDV IVPUSH ONE (22:03)
[2020-01-12] MEDS ORDERED: FLU Vacc QS2019-20(6MOS+)/PF 60 MCG/0.5 ML SYRINGE IM ONE (23:00)
[2020-01-13] MEDS ORDERED: Lactated Ringers 1,000 ML IV ONE (01:00)
== END 2020-01-13 02:56 | disposition home or self-care (01) ==
LOC: JD.ED 21:41
DX: R19.7 Diarrhea, unspecified (principal); E27.1 Primary adrenocortical insufficiency; I10 Essential (primary) hypertension; K21.9 Gastro-esophageal reflux disease without esophagitis; Z79.899 Other long term (current) drug therapy; Z88.0 Allergy status to penicillin; Z88.1 Allergy status to other antibiotic agents; Z88.5 Allergy status to narcotic agent; Z23 Encounter for immunization
CPT/HCPCS: 36415; 80053; 81003; 82533; 85025; 90471; 90686; 96361; 96374; 99284; J1720; J7030; J7120; 99283; G0008

== ENCOUNTER 2020-03-01 14:19 | Emergency (ER) | payer MEDICAID ==
[2020-03-01] MEDS ORDERED: Sodium Chloride 0.9% 10 ML Syringe FLUSH PRN (14:50)
[2020-03-01] MEDS ORDERED: Hydrocortisone Sodium Succinate 100 MG/2 ML SDV IVPUSH ONE (14:58)
[2020-03-01] MEDS ORDERED: Sodium Chloride 0.9% 1,000 ML IV SCH (15:00)
--- NOTE | 2020-03-01 15:19 | EDM.PDOC ---
ED HPI GENERAL MEDICAL PROBLEM - General Chief Complaint: General Stated Complaint: LETHARGY/R LEG SWOLLEN Time Seen by Provider: 03/01/20 14:31 Source of Information: Reports: Patient History Limitations: Reports: No Limitations - History of Present Illness INITIAL COMMENTS - FREE TEXT/NARRATIVE: The patient presents with right leg swelling, generalized weakness and headache. 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 She is concerned she may be having a crisis. She has had 2 of them and this feels the same. She denies fever, chills or cough. She has no chest pain but she does have shortness of breath at times. She says that will happen with the Denver's crisis. She says she had swelling in her right leg for a few days. She has no trauma to that leg. She had this happen before but it did not last this long. She has no history of DVT or PE. She has not missed any of her doses of steroids and she has not been sick. She has no abdominal pain, nausea or vomiting. Onset: Gradual Duration: Day(s): Location: Reports: Lower Extremity, Right Quality: Reports: Ache Severity: Mild Improves with: Reports: None Worsens with: Reports: None Associated Symptoms: Reports: Shortness of Breath. Denies: Chest Pain, Cough, Fever/Chills, Headaches, Nausea/Vomiting Headache Pain Score (Numeric/FACES): 7 - Related Data Allergies Allergy/AdvReac Type Severity Reaction Status Date / Time azithromycin Allergy Vomiting Verified 03/01/20 14:35 codeine Allergy Vomiting Verified 03/01/20 14:35 doxycycline Allergy Vomiting Verified 03/01/20 14:35 morphine Allergy Vomiting Verified 03/01/20 14:35 Penicillins Allergy Vomiting Verified 03/01/20 14:35 Home Meds: Home Meds Famotidine 40 mg PO DAILY 03/04/18 [History] Fluticasone Propionate [Flovent] 1 puff IH DAILY 03/04/18 [History] Metoprolol Succinate 50 mg PO DAILY 03/04/18 [History] amLODIPine [Norvasc] 5 mg PO DAILY 03/04/18 [History] tiZANidine HCl [Tizanidine HCl] 4 mg PO DAILY 03/04/18 [History] Meclizine [Antivert] 25 mg PO Q6H PRN #20 tab 11/12/18 [Rx] Esomeprazole Magnesium [Nexium] 1 cap PO QAM #14 capsule. 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 - Past Surgical History HEENT Surgical History: Reports: Adenoidectomy, Tonsillectomy GI Surgical History: Reports: Colonoscopy, EGD, Hernia, Abdominal Female Surgical History: Reports: Section, Lithotripsy/ESWL, Tubal Ligation Social & Family History - Family History Family Medical History: Noncontributory - Tobacco Use Smoking Status *Q: Never Smoker - Caffeine Use Caffeine Use: Reports: None - Recreational Drug Use Recreational Drug Use: No - Living Situation & Occupation Living situation: Reports: , with Spouse, with Family (2 sons) Occupation: Employed ([employer]) ED ROS GENERAL - Review of Systems Review Of Systems: See Below Constitutional: Reports: Weakness. Denies: Fever, Chills HEENT: Reports: No Symptoms Respiratory: Reports: No Symptoms Cardiovascular: Reports: No Symptoms Endocrine: Reports: No Symptoms GI/Abdominal: Reports: No Symptoms : Reports: No Symptoms Musculoskeletal: Reports: No Symptoms Skin: Reports: No Symptoms Neurological: Reports: No Symptoms ED EXAM, GENERAL - Physical Exam Exam: See Below Exam Limited By: No Limitations General Appearance: Alert, No Apparent Distress Ears: Normal External Exam Nose: Normal Inspection Throat/Mouth: Normal Inspection Head: Atraumatic Neck: Normal Inspection Respiratory/Chest: No Respiratory Distress, Lungs Clear, Normal Breath Sounds Cardiovascular: Regular Rate, Rhythm, No Edema, No Murmur GI/Abdominal: Soft, Non-Tender, No Organomegaly, No Mass Rectal (Female) Exam: Normal Exam Back Exam: Normal Inspection Extremities: Normal Inspection Neurological: Alert, Oriented, No Motor/Sensory Deficits Course - Vital Signs Last Recorded V/S: Last Vital Signs Temp 97.4 F 03/01/20 14:30 Pulse 97 03/01/20 14:30 Resp 16 03/01/20 14:30 BP 139/92 H 03/01/20 14:30 Pulse Ox 97 03/01/20 14:30 - Orders/Labs/Meds Orders: Active Orders 24 hr Category Date Time Status Cardiac Monitoring [RC] . DIRECTED Care 03/01/20 14:50 Active Peripheral IV Care [RC] . DIRECTED Care 03/01/20 14:51 Active Chest 2V [CR] Stat Exams 03/01/20 14:51 Taken VL Duplex Lwr Ext Veins Ltd Rt [US] Stat Exams 03/01/20 14:51 Taken Sodium Chloride 0.9% [Normal Saline] 1,000 ml Med 03/01/20 15:00 Active IV .BOLUS Sodium Chloride 0.9% [Saline Flush] Med 03/01/20 14:50 Active 10 ml FLUSH ASDIRECTED PRN Peripheral IV Insertion Adult [OM.PC] Stat Oth 03/01/20 14:50 Ordered Medication Orders Sodium Chloride (Normal Saline) 1,000 mls @ 1,000 mls/hr IV .BOLUS GODWIN Last Admin: 03/01/20 15:15 Dose: 1,000 mls/hr Sodium Chloride (Saline Flush) 10 ml FLUSH ASDIRECTED PRN PRN Reason: Keep Vein Open Last Admin: 03/01/20 15:16 Dose: 10 ml Labs: Laboratory Tests 03/01/20 03/01/20 Range/Units 15:14 15:14 WBC 11.74 H (3.98-10.04) K/mm3 RBC 4.24 (3.98-5.22) M/mm3 Hgb 13.4 (11.2-15.7) gm/dl Hct 39.5 (34.1-44.9) % MCV 93.2 (79.4-94.8) fl MCH 31.6 (25.6-32.2) pg MCHC 33.9 (32.2-35.5) g/dl RDW Std Deviation 45.0 (36.4-46.3) fL Plt Count 294 (182-369) K/mm3 MPV 9.8 (9.4-12.3) fl Neut % (Auto) 84.1 H (34.0-71.1) % Lymph % (Auto) 9.8 L (19.3-51.7) % Rowan % (Auto) 4.5 L (4.7-12.5) % Eos % (Auto) 0.5 L (0.7-5.8) Baso % (Auto) 0.3 (0.1-1.2) % Neut # (Auto) 9.87 H (1.56-6.13) K/mm3 Lymph # (Auto) 1.15 L (1.18-3.74) K/mm3 Rowan # (Auto) 0.53 H (0.24-0.36) K/mm3 Eos # (Auto) 0.06 (0.04-0.36) K/mm3 Baso # (Auto) 0.04 (0.01-0.08) K/mm3 Manual Slide Review Abnormal smear Sodium 141 (136-145) mEq/L Potassium 3.6 (3.5-5.1) mEq/L Chloride 105 (98-107) mEq/L Carbon Dioxide 25 (21-32) mEq/L Anion Gap 14.6 (5-15) BUN 12 (7-18) mg/dL Creatinine 0.7 (0.55-1.02) mg/dL Est Cr Clr Drug Dosing 75.78 mL/min Estimated GFR (MDRD) > 60 (>60) mL/min BUN/Creatinine Ratio 17.1 (14-18) Glucose 102 (74-106) mg/dL Calcium 8.7 (8.5-10.1) mg/dL Magnesium 1.8 (1.8-2.4) mg/dl Total Bilirubin 0.5 (0.2-1.0) mg/dL AST 22 (15-37) U/L ALT 37 (14-59) U/L Alkaline Phosphatase 77 (46-116) U/L Total Protein 7.4 (6.4-8.2) g/dl Albumin 3.6 (3.4-5.0) g/dl Globulin 3.8 gm/dL Albumin/Globulin Ratio 1.0 (1-2) Meds: Medications Generic Name Dose Route Start Last Admin Trade Name Freq PRN Reason Stop Dose Admin Sodium Chloride 1,000 mls @ 1,000 mls/hr 03/01/20 15:00 03/01/20 15:15 Normal Saline IV 1,000 mls/hr .BOLUS GODWIN Administration Sodium Chloride 10 ml 03/01/20 14:50 03/01/20 15:16 Saline Flush FLUSH 10 ml ASDIRECTED PRN Administration Keep Vein Open Discontinued Medications Generic Name Dose Route Start Last Admin Trade Name Freq PRN Reason Stop Dose Admin Hydrocortisone Sodium Succinate 100 mg 03/01/20 14:58 03/01/20 15:15 Solu-Cortef IVPUSH 03/01/20 14:59 100 mg ONETIME ONE Administration Ketorolac Tromethamine 30 mg 03/01/20 15:29 03/01/20 15:52 Toradol IVPUSH 03/01/20 15:30 30 mg ONETIME ONE Administration - Re-Assessments/Exams Free Text/Narrative Re-Assessment/Exam: 03/01/20 15:36 I ordered an IV NS 1L bolus, hydrocortisone 10mg IV, and labs. 03/01/20 16:46 Her CXR looks good. Her US shows no DVT. Her WBC was elevated slightly. Her CMP looks good. She does feel a little better. I will discharge her home. Departure - Departure Time of Disposition: 16:50 Disposition: Home, Self-Care 01 Condition: Good Clinical Impression: Addisons disease, Leg edema, right - Discharge Information *PRESCRIPTION DRUG MONITORING PROGRAM REVIEWED*: Not Applicable *COPY OF PRESCRIPTION DRUG MONITORING REPORT IN PATIENT BUSTER: Not Applicable Referrals: PCP,None [Primary Care Provider] - Forms: ED Department Discharge Additional Instructions: Take your medications as prescribed. 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 Follow up with them as soon as you can. Please return if you are worse. Sepsis Event Note - Evaluation Sepsis Screening Result: No Definite Risk - Focused Exam Vital Signs: Vital Signs Temp Pulse Resp BP Pulse Ox 03/01/20 14:30 97.4 F 97 16 139/92 H 97 Date Exam was Performed: 03/01/20 Time Exam was Performed: 16:46 - My Orders Last 24 Hours: My Active Orders 03/01/20 14:50 Cardiac Monitoring [RC] . DIRECTED Sodium Chloride 0.9% [Saline Flush] 10 ml FLUSH ASDIRECTED PRN Peripheral IV Insertion Adult [OM.PC] Stat 03/01/20 14:51 Peripheral IV Care [RC] . DIRECTED Chest 2V [CR] Stat VL Duplex Lwr Ext Veins Ltd Rt [US] Stat 03/01/20 15:00 Sodium Chloride 0.9% [Normal Saline] 1,000 ml IV .BOLUS - Assessment/Plan Last 24 Hours: My Active Orders 03/01/20 14:50 Cardiac Monitoring [RC] . DIRECTED Sodium Chloride 0.9% [Saline Flush] 10 ml FLUSH ASDIRECTED PRN Peripheral IV Insertion Adult [OM.PC] Stat 03/01/20 14:51 Peripheral IV Care [RC] . DIRECTED Chest 2V [CR] Stat VL Duplex Lwr Ext Veins Ltd Rt [US] Stat 03/01/20 15:00 Sodium Chloride 0.9% [Normal Saline] 1,000 ml IV .BOLUS
[2020-03-01] MEDS ORDERED: Ketorolac 30 MG/ML SDV IVPUSH ONE (15:29)
--- NOTE | 2020-03-02 07:16 | CR ---
Chest: 2 views of the chest were obtained. Comparison: No prior chest imaging is available. Heart size at the upper limits of normal. Upper mediastinum is normal. Lungs are clear with no acute parenchymal change. Mild scoliosis is noted within the spine. Diaphragms are slightly flattened on the lateral view raising the possibility of emphysematous change. Impression: 1. Questionable emphysematous change. Please correlate if patient is a smoker. 2. Nothing acute is otherwise seen on 2 view chest x-ray. Diagnostic code #2 This report was dictated in MDT
--- NOTE | 2020-03-02 07:27 | US ---
Right lower extremity deep venous ultrasound: Duplex and color Doppler evaluation was obtained of the right common femoral, proximal greater saphenous, superficial femoral, popliteal, posterior tibial and peroneal veins. Left common femoral vein was also evaluated. Comparison: No prior venous imaging. Findings: Normal augmentation, compression and phasic flow is identified. Impression: 1. No evidence of deep venous thrombosis within the right lower extremity or within the left common femoral vein. Diagnostic code #1 This report was dictated in MDT I agree with preliminary report from [facility], finalized on 03/01/20, 5:41 PM Central Daylight Time
== END 2020-03-01 17:05 | disposition home or self-care (01) ==
LOC: JD.ED 14:19
DX: R60.0 Localized edema (principal); E27.1 Primary adrenocortical insufficiency; I10 Essential (primary) hypertension; K21.9 Gastro-esophageal reflux disease without esophagitis; Z79.899 Other long term (current) drug therapy; Z88.1 Allergy status to other antibiotic agents; Z88.5 Allergy status to narcotic agent; Z88.0 Allergy status to penicillin
CPT/HCPCS: 36415; 71046; 80053; 83735; 85025; 93971; 96361; 96374; 96375; 99285; J1720; J1885; J7030; 99283

== ENCOUNTER 2020-06-02 17:11 | Emergency (ER) | payer MEDICAID ==
--- NOTE | 2020-06-02 19:11 | EDM.PDOC ---
ED HPI GENERAL MEDICAL PROBLEM - General Chief Complaint: Cardiovascular Problem Stated Complaint: HIGH BLOOD PRESSURE Time Seen by Provider: 06/02/20 18:32 Source of Information: Reports: Patient, RN Notes Reviewed - History of Present Illness INITIAL COMMENTS - FREE TEXT/NARRATIVE: Pt comes in with BP concerns. she had a high reading at home, about 180/110. Her meds were adjusted 2 days ago. Amlodipine stopped, started on HCTZ, also takes metropolol. No Ruiz. She feels a bit "off" but can not described it in a better way. No chest pain or difficulty breathing. No cough, fever or chills. Headache Pain Score (Numeric/FACES): 6 - Related Data Allergies Allergy/AdvReac Type Severity Reaction Status Date / Time amoxicillin Allergy Rash Verified 05/19/20 13:42 azithromycin Allergy Vomiting, Verified 05/19/20 13:42 hives codeine Allergy Vomiting, Verified 05/19/20 13:42 hyperactivity. doxycycline Allergy Vomiting, Verified 05/19/20 13:42 hives morphine Allergy Vomiting, Verified 05/19/20 13:42 Itching, hyperactivity. nystatin Allergy Rash Verified 05/19/20 13:43 Penicillins Allergy Vomiting, Verified 05/19/20 13:42 hives Home Meds: Home Meds Famotidine 40 mg PO DAILY 03/04/18 [History] Fluticasone Propionate [Flovent] 1 puff IH DAILY 03/04/18 [History] Metoprolol Succinate 50 mg PO DAILY 03/04/18 [History] tiZANidine HCl [Tizanidine HCl] 4 mg PO DAILY 03/04/18 [History] Meclizine [Antivert] 25 mg PO Q6H PRN #20 tab 11/12/18 [Rx] Esomeprazole Magnesium [Nexium] 1 cap PO QAM #14 capsule. 06/19/19 [Rx] Dicyclomine [Bentyl] 20 mg PO QID PRN 10/23/19 [History] Hydrocortisone 10 mg PO QAM 10/23/19 [History] Hydrocortisone 20 mg PO QPM 10/23/19 [History] oxyCODONE HCl/Acetaminophen [Oxycodone-Acetaminophen 10-300] 1 each PO DAILY 05/19/20 [History] traZODone HCl [Trazodone HCl] 50 mg PO BEDTIME 05/19/20 [History] hydroCHLOROthiazide [Hydrochlorothiazide] 12.5 mg PO DAILY 06/02/20 [History] Past Medical History HEENT History: Reports: Other (See Below) Cardiovascular History: Reports: Hypertension Gastrointestinal History: Reports: Diverticulosis, Gastritis, GERD Genitourinary History: Reports: Renal Calculus [employer]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: Musculoskeletal History: Reports: Arthritis Neurological History: Reports: Migraines Psychiatric History: Reports: Other (See Below) 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 - Past Surgical History HEENT Surgical History: Reports: Adenoidectomy, Tonsillectomy GI Surgical History: Reports: Colonoscopy, EGD, Hernia, Abdominal Female Surgical History: Reports: Section, Lithotripsy/ESWL, Tubal Ligation Social & Family History - Family History Family Medical History: Noncontributory - Tobacco Use Smoking Status *Q: Never Smoker - Caffeine Use Caffeine Use: Reports: None - Living Situation & Occupation Living situation: Reports: , with Spouse, with Family (2 sons) Occupation: Employed ([employer]) ED ROS GENERAL - Review of Systems Review Of Systems: See Below Constitutional: Denies: Fever, Chills, Diaphoresis HEENT: Reports: No Symptoms Respiratory: Denies: Shortness of Breath, Pleuritic Chest Pain, Cough Cardiovascular: Denies: Chest Pain GI/Abdominal: Reports: Decreased Appetite. Denies: Abdominal Pain, Nausea, Vomiting Musculoskeletal: Denies: Neck Pain, Shoulder Pain, Arm Pain, Back Pain Skin: Reports: No Symptoms Neurological: Reports: Dizziness. Denies: Headache, Numbness, Tingling, Trouble Speaking, Difficulty Walking, Weakness ED EXAM, GENERAL - Physical Exam Exam: See Below General Appearance: Alert, No Apparent Distress Eye Exam: Bilateral Eye: PERRL Head: Atraumatic. No: Facial Swelling Neck: Supple Respiratory/Chest: No Respiratory Distress, Lungs Clear, Normal Breath Sounds Cardiovascular: Regular Rate, Rhythm GI/Abdominal: Soft, Non-Tender Extremities: Normal Inspection, Normal Range of Motion. No: Pedal Edema, Leg Pain, Increased Warmth, Redness Neurological: Alert, Oriented, No Motor/Sensory Deficits Skin Exam: Warm, Dry, Normal Color, No Rash Course - Vital Signs Last Recorded V/S: Last Vital Signs Temp 97.5 F 06/02/20 17:21 Pulse 78 08/14/20 17:21 Resp 16 06/02/20 17:21 BP 142/100 H 06/02/20 17:21 Pulse Ox 97 06/02/20 17:21 - Re-Assessments/Exams Free Text/Narrative Re-Assessment/Exam: 06/03/20 15:12 Due to very busy ED patient was roomed for quite awhile before I could get in to see her. Triage BP abou 140/100. Many follow up reading in the low 130s over low 90's. Neuro and cardiac exam nl. Discharge instr. as documented. Departure - Departure Time of Disposition: 19:09 Disposition: Home, Self-Care 01 Condition: Fair Clinical Impression: Rupert's disease Hypertension Qualifiers: Hypertension type: essential hypertension Qualified Code(s): I10 - Essential (primary) hypertension Instructions: Oxford's Disease, Hypertension, Adult, [id number] Referrals: Karthik Goodman PA [Primary Care Provider] - Forms: ED Department Discharge Additional Instructions: Check your blood pressures 3 to 4 times daily and keep a log for your medical provider. Call you medical provider's clinic tomorrow AM to discuss home blood pressure readings. Your BP was high on arrival to ED today at 142/100 but than dropped to many readings in the 130/92 range. Sepsis Event Note (ED) - Evaluation Sepsis Screening Result: No Definite Risk
== END 2020-06-02 19:28 | disposition home or self-care (01) ==
LOC: JD.ED 17:11
DX: I10 Essential (primary) hypertension (principal); E27.1 Primary adrenocortical insufficiency; K21.9 Gastro-esophageal reflux disease without esophagitis; M19.90 Unspecified osteoarthritis, unspecified site; Z79.899 Other long term (current) drug therapy; Z88.1 Allergy status to other antibiotic agents; Z88.5 Allergy status to narcotic agent; Z88.0 Allergy status to penicillin
CPT/HCPCS: 99282; 99283

== ENCOUNTER 2020-06-19 06:41 | Emergency (ER) | payer MEDICAID ==
[2020-06-19] MEDS ORDERED: Sodium Chloride 0.9% 1,000 ML IV STA (08:27)
[2020-06-19] MEDS ORDERED: Sodium Chloride 0.9% 10 ML Syringe FLUSH PRN (08:27)
[2020-06-19] MEDS ORDERED: Ondansetron 4 MG/2 ML SDV IVPUSH ONE (08:27)
[2020-06-19] MEDS ORDERED: Hydrocortisone Sodium Succinate 100 MG/2 ML SDV IVPUSH ONE (08:29)
--- NOTE | 2020-06-19 09:08 | EDM.PDOC ---
ED HPI GENERAL MEDICAL PROBLEM - General Chief Complaint: Respiratory Problem Stated Complaint: SOB/CHILLS Time Seen by Provider: 06/19/20 08:11 Source of Information: Reports: Patient History Limitations: Reports: No Limitations - History of Present Illness INITIAL COMMENTS - FREE TEXT/NARRATIVE: The patient presents with chills, shortness of breath, nausea, vomiting and not feeling well. She has a history of nitesh's disease and she is not sure if this is a crisis or COVID 19. She has not been exposed as far as she knows. 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 She has no cough. She has no fever that she can tell but she does have chills. She did have some loose stools. She has no chest pain but she does have some shortness of breath. She has no dysuria or hematuria. This has all been going on for a couple of days but this morning was the worst. She did not loose her sense of taste or smell. Onset: Gradual Duration: Day(s): Severity: Moderate Improves with: Reports: None Worsens with: Reports: None Associated Symptoms: Reports: Fever/Chills, Nausea/Vomiting, Shortness of Breath. Denies: Chest Pain, Cough, Headaches - Related Data Allergies Allergy/AdvReac Type Severity Reaction Status Date / Time amoxicillin Allergy Rash Verified 05/19/20 13:42 azithromycin Allergy Vomiting, Verified 05/19/20 13:42 hives codeine Allergy Vomiting, Verified 05/19/20 13:42 hyperactivity. doxycycline Allergy Vomiting, Verified 05/19/20 13:42 hives morphine Allergy Vomiting, Verified 05/19/20 13:42 Itching, hyperactivity. nystatin Allergy Rash Verified 05/19/20 13:43 Penicillins Allergy Vomiting, Verified 05/19/20 13:42 hives Home Meds: Home Meds Famotidine 40 mg PO DAILY 03/04/18 [History] Fluticasone Propionate [Flovent] 1 puff IH DAILY 03/04/18 [History] Metoprolol Succinate 50 mg PO DAILY 03/04/18 [History] tiZANidine HCl [Tizanidine HCl] 4 mg PO DAILY 03/04/18 [History] Meclizine [Antivert] 25 mg PO Q6H PRN #20 tab 11/12/18 [Rx] Esomeprazole Magnesium [Nexium] 1 cap PO QAM #14 capsule. 06/19/19 [Rx] Dicyclomine [Bentyl] 20 mg PO QID PRN 10/23/19 [History] Hydrocortisone 10 mg PO QAM 10/23/19 [History] Hydrocortisone 20 mg PO QPM 10/23/19 [History] oxyCODONE HCl/Acetaminophen [Oxycodone-Acetaminophen 10-300] 1 each PO Q4H PRN 05/19/20 [History] traZODone HCl [Trazodone HCl] 50 mg PO BEDTIME 05/19/20 [History] amLODIPine Besylate [Amlodipine Besylate] 10 mg PO DAILY 06/19/20 [History] Past Medical History HEENT History: Reports: Other (See Below) Cardiovascular History: Reports: Hypertension Gastrointestinal History: Reports: Diverticulosis, Gastritis, GERD Genitourinary History: Reports: Renal Calculus [employer]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: Musculoskeletal History: Reports: Arthritis Neurological History: Reports: Migraines Psychiatric History: Reports: Other (See Below) Endocrine/Metabolic History: Reports: Nitesh's Disease - Past Surgical History HEENT Surgical History: Reports: Adenoidectomy, Tonsillectomy GI Surgical History: Reports: Colonoscopy, EGD, Hernia, Abdominal Female Surgical History: Reports: Section, Lithotripsy/ESWL, Tubal Ligation Social & Family History - Family History Family Medical History: Noncontributory - Tobacco Use Smoking Status *Q: Never Smoker - Caffeine Use Caffeine Use: Reports: None - Recreational Drug Use Recreational Drug Use: No - Living Situation & Occupation Living situation: Reports: , with Spouse, with Family (2 sons) Occupation: Employed ([employer]) ED ROS GENERAL - Review of Systems Review Of Systems: See Below Constitutional: Reports: Chills. Denies: Fever HEENT: Reports: No Symptoms Respiratory: Reports: Shortness of Breath. Denies: Cough Cardiovascular: Reports: No Symptoms Endocrine: Reports: No Symptoms GI/Abdominal: Reports: Diarrhea, Nausea, Vomiting. Denies: Abdominal Pain : Reports: No Symptoms Musculoskeletal: Reports: No Symptoms ED EXAM, GENERAL - Physical Exam Exam: See Below Exam Limited By: No Limitations General Appearance: Alert, No Apparent Distress Ears: Normal External Exam Nose: Normal Inspection Head: Atraumatic, Normocephalic Neck: Normal Inspection Respiratory/Chest: No Respiratory Distress, Lungs Clear, Normal Breath Sounds Cardiovascular: Regular Rate, Rhythm, No Edema, No Murmur GI/Abdominal: Soft, Non-Tender, No Organomegaly, No Mass Extremities: Normal Inspection Neurological: Alert, Oriented, No Motor/Sensory Deficits Course - Vital Signs Last Recorded V/S: Last Vital Signs Temp 98.5 F 06/19/20 07:32 Pulse 98 06/19/20 07:32 Resp 15 06/19/20 07:32 BP 143/99 H 06/19/20 07:32 Pulse Ox 100 06/19/20 07:32 - Orders/Labs/Meds Orders: Active Orders 24 hr Category Date Time Status Peripheral IV Care [RC] . DIRECTED Care 06/19/20 08:28 Active CORONAVIRUS COVID-19 PCR PHL Stat Lab 06/19/20 09:20 Received UA W/MICROSCOPIC [URIN] Stat Lab 06/19/20 08:27 Ordered Sodium Chloride 0.9% [Saline Flush] Med 06/19/20 08:27 Active 10 ml FLUSH ASDIRECTED PRN ED Antiemetic Medication Reflex [OM.PC] Stat Oth 06/19/20 08:28 Ordered Peripheral IV Insertion Adult [OM.PC] Stat Oth 06/19/20 08:27 Ordered Medication Orders Sodium Chloride (Saline Flush) 10 ml FLUSH ASDIRECTED PRN PRN Reason: Keep Vein Open Last Admin: 06/19/20 09:11 Dose: 10 ml Documented by: MAXIMINO Labs: Laboratory Tests 06/19/20 06/19/20 06/19/20 Range/Units 09:10 09:10 09:10 WBC 9.93 (3.98-10.04) K/mm3 RBC 4.48 (3.98-5.22) M/mm3 Hgb 13.6 (11.2-15.7) gm/dl Hct 40.9 (34.1-44.9) % MCV 91.3 (79.4-94.8) fl MCH 30.4 (25.6-32.2) pg MCHC 33.3 (32.2-35.5) g/dl RDW Std Deviation 45.7 (36.4-46.3) fL Plt Count 281 (182-369) K/mm3 MPV 9.9 (9.4-12.3) fl Neut % (Auto) 81.4 H (34.0-71.1) % Lymph % (Auto) 8.6 L (19.3-51.7) % Eaton % (Auto) 9.1 (4.7-12.5) % Eos % (Auto) 0.2 L (0.7-5.8) Baso % (Auto) 0.2 (0.1-1.2) % Neut # (Auto) 8.09 H (1.56-6.13) K/mm3 Lymph # (Auto) 0.85 L (1.18-3.74) K/mm3 Eaton # (Auto) 0.90 H (0.24-0.36) K/mm3 Eos # (Auto) 0.02 L (0.04-0.36) K/mm3 Baso # (Auto) 0.02 (0.01-0.08) K/mm3 Manual Slide Review Normal smear Sodium 135 L (136-145) mEq/L Potassium 3.4 L (3.5-5.1) mEq/L Chloride 100 (98-107) mEq/L Carbon Dioxide 26 (21-32) mEq/L Anion Gap 12.4 (5-15) BUN 6 L (7-18) mg/dL Creatinine 0.7 (0.55-1.02) mg/dL Est Cr Clr Drug Dosing 75.78 mL/min Estimated GFR (MDRD) > 60 (>60) mL/min BUN/Creatinine Ratio 8.6 L (14-18) Glucose 105 (74-106) mg/dL Calcium 8.3 L (8.5-10.1) mg/dL Magnesium 1.7 L (1.8-2.4) mg/dl Total Bilirubin 0.3 (0.2-1.0) mg/dL AST 24 (15-37) U/L ALT 38 (14-59) U/L Alkaline Phosphatase 84 (46-116) U/L Total Protein 7.4 (6.4-8.2) g/dl Albumin 3.4 (3.4-5.0) g/dl Globulin 4.0 gm/dL Albumin/Globulin Ratio 0.9 L (1-2) Lipase 52 L (73-393) U/L HCG, Qual Negative (NEGATIVE) Meds: Medications Generic Name Dose Route Start Last Admin Trade Name Winnie PRN Reason Stop Dose Admin Sodium Chloride 10 ml 06/19/20 08:27 06/19/20 09:11 Saline Flush FLUSH 10 ml ASDIRECTED PRN Administration Keep Vein Open Discontinued Medications Generic Name Dose Route Start Last Admin Trade Name Winnie PRN Reason Stop Dose Admin Hydrocortisone Sodium Succinate 100 mg 06/19/20 08:29 06/19/20 09:11 Solu-Cortef IVPUSH 06/19/20 08:30 100 mg ONETIME ONE Administration Sodium Chloride 1,000 mls @ 1,000 mls/hr 06/19/20 08:27 06/19/20 09:11 Normal Saline IV 06/19/20 09:26 1,000 mls/hr .BOLUS STA Administration Ondansetron HCl 4 mg 06/19/20 08:27 06/19/20 09:11 Zofran IVPUSH 06/19/20 08:28 4 mg ONETIME ONE Administration - Re-Assessments/Exams Free Text/Narrative Re-Assessment/Exam: 06/19/20 09:08 I ordered an IV NS 1L bolus, zofran 4mg IV, labs, UA, COVID 19 test and hydrocortisone 100mg IV. 06/19/20 10:53 Her CBC looks good. Her Na is low at 135. Her K is low at 3.4. Her magnesium is low at 1.7. Her lipase is low at 52. Her HCG is negative. She feels better. I will have her off of work until she gets the COVID 19 back. Departure - Departure Time of Disposition: 10:55 Disposition: Home, Self-Care 01 Condition: Good Clinical Impression: Addisons disease Nausea & vomiting Qualifiers: Vomiting type: unspecified Vomiting Intractability: non-intractable Qualified Code(s): R11.2 - Nausea with vomiting, unspecified - Discharge Information *PRESCRIPTION DRUG MONITORING PROGRAM REVIEWED*: Not Applicable *COPY OF PRESCRIPTION DRUG MONITORING REPORT IN PATIENT BUSTER: Not Applicable Referrals: Karthik Goodman PA [Primary Care Provider] - Forms: ED Department Discharge, ED Return to Work/School Form Additional Instructions: Drink plenty of fluids. Take your medications as prescribed. Someone will call you with results. Please return if you are worse. Sepsis Event Note (ED) - Evaluation Sepsis Screening Result: No Definite Risk - Focused Exam Vital Signs: Vital Signs Temp Pulse Resp BP Pulse Ox 06/19/20 07:32 98.5 F 98 15 143/99 H 100 - My Orders Last 24 Hours: My Active Orders 06/19/20 08:27 UA W/MICROSCOPIC [URIN] Stat Sodium Chloride 0.9% [Saline Flush] 10 ml FLUSH ASDIRECTED PRN Peripheral IV Insertion Adult [OM.PC] Stat 06/19/20 08:28 Peripheral IV Care [RC] . DIRECTED ED Antiemetic Medication Reflex [OM.PC] Stat 06/19/20 09:20 CORONAVIRUS COVID-19 PCR PHL Stat - Assessment/Plan Last 24 Hours: My Active Orders 06/19/20 08:27 UA W/MICROSCOPIC [URIN] Stat Sodium Chloride 0.9% [Saline Flush] 10 ml FLUSH ASDIRECTED PRN Peripheral IV Insertion Adult [OM.PC] Stat 06/19/20 08:28 Peripheral IV Care [RC] . DIRECTED ED Antiemetic Medication Reflex [OM.PC] Stat 06/19/20 09:20 CORONAVIRUS COVID-19 PCR PHL Stat
== END 2020-06-19 11:50 | disposition home or self-care (01) ==
LOC: JD.ED 06:41
DX: E27.1 Primary adrenocortical insufficiency (principal); R11.2 Nausea with vomiting, unspecified; I10 Essential (primary) hypertension; K21.9 Gastro-esophageal reflux disease without esophagitis; Z79.899 Other long term (current) drug therapy; Z20.828 Contact with and (suspected) exposure to other viral communicable diseases; Z88.1 Allergy status to other antibiotic agents; Z88.5 Allergy status to narcotic agent; Z88.0 Allergy status to penicillin
CPT/HCPCS: 36415; 80053; 83690; 83735; 84703; 85025; 87635; 96361; 96374; 96375; 99284; J1720; J2405; J7030; 99283; U0002

== ENCOUNTER 2020-08-14 08:20 | Emergency (ER) | payer MEDICAID ==
[2020-08-14] MEDS ORDERED: Ondansetron 4 MG/2 ML SDV IVPUSH ONE (08:59)
[2020-08-14] MEDS ORDERED: Sodium Chloride 0.9% 1,000 ML IV STA (08:59)
[2020-08-14] MEDS ORDERED: Sodium Chloride 0.9% 10 ML Syringe FLUSH PRN (08:59)
[2020-08-14] MEDS ORDERED: Cyclobenzaprine 10 MG Tab PO ONE (09:00)
[2020-08-14] MEDS ORDERED: HYDROmorphone 1 MG/ML Syringe IVPUSH ONE (09:00)
[2020-08-14] MEDS ORDERED: Hydrocortisone Sodium Succinate 100 MG/2 ML SDV IVPUSH ONE (09:00)
--- NOTE | 2020-08-14 09:24 | EDM.PDOC ---
ED HPI GENERAL MEDICAL PROBLEM - General Chief Complaint: General Stated Complaint: BACK PAIN/ADDISONS DISEASE CONCERNS Time Seen by Provider: 08/14/20 08:27 Source of Information: Reports: Patient History Limitations: Reports: No Limitations - History of Present Illness INITIAL COMMENTS - FREE TEXT/NARRATIVE: The patient presents with generalized weakness, nausea and low back pain. She has a history of Warren's disease. She will some times need more steroids. She has nausea with it also. She also has decreased appetite and shortness of breath. She also says her back went out today. She has a history of low back pain and twice a year if flairs up. She has no numbness or localized weakness. She has no bowel or bladder problems. Onset: Gradual Duration: Day(s): Location: Reports: Back Quality: Reports: Sharp Severity: Moderate Improves with: Reports: Immobilization Worsens with: Reports: Movement Context: Denies: Trauma Associated Symptoms: Reports: Nausea/Vomiting, Shortness of Breath. Denies: Chest Pain, Cough, Fever/Chills, Headaches Bilateral Lower Back Pain Score (Numeric/FACES): 10 - Related Data Allergies Allergy/AdvReac Type Severity Reaction Status Date / Time amoxicillin Allergy Rash Verified 08/14/20 08:31 azithromycin Allergy Vomiting, Verified 08/14/20 08:31 hives codeine Allergy Vomiting, Verified 08/14/20 08:31 hyperactivity. doxycycline Allergy Vomiting, Verified 08/14/20 08:31 hives morphine Allergy Vomiting, Verified 08/14/20 08:31 Itching, hyperactivity. nystatin Allergy Rash Verified 08/14/20 08:31 Penicillins Allergy Vomiting, Verified 08/14/20 08:31 hives Home Meds: Home Meds Famotidine 40 mg PO DAILY 03/04/18 [History] Fluticasone Propionate [Flovent] 1 puff IH DAILY 03/04/18 [History] Metoprolol Succinate 50 mg PO DAILY 03/04/18 [History] tiZANidine HCl [Tizanidine HCl] 4 mg PO BEDTIME 03/04/18 [History] Meclizine [Antivert] 25 mg PO Q6H PRN #20 tab 11/12/18 [Rx] Esomeprazole Magnesium [Nexium] 1 cap PO QAM #14 capsule. 06/19/19 [Rx] Dicyclomine [Bentyl] 20 mg PO QID PRN 10/23/19 [History] Hydrocortisone 20 mg PO QPM 10/23/19 [History] Hydrocortisone 30 mg PO QAM 10/23/19 [History] oxyCODONE HCl/Acetaminophen [Oxycodone-Acetaminophen 10-300] 1 each PO Q4H PRN 05/19/20 [History] traZODone HCl [Trazodone HCl] 50 mg PO BEDTIME 05/19/20 [History] amLODIPine Besylate [Amlodipine Besylate] 10 mg PO DAILY 06/19/20 [History] Cyclobenzaprine [Flexeril] 10 mg PO TID PRN #20 tab 08/14/20 [Rx] Hydrocodone/Acetaminophen [Hydrocodone-Acetamin 5-325 mg] 1 - 2 each PO Q6HR PRN #15 tablet 08/14/20 [Rx] predniSONE [Prednisone] 20 mg PO DAILY PRN 08/14/20 [History] Past Medical History HEENT History: Reports: Other (See Below) Cardiovascular History: Reports: Hypertension Respiratory History: Reports: Asthma Gastrointestinal History: Reports: Diverticulosis, Gastritis, GERD Genitourinary History: Reports: Renal Calculus [employer]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: Musculoskeletal History: Reports: Arthritis Neurological History: Reports: Migraines Psychiatric History: Reports: Other (See Below) Endocrine/Metabolic History: Reports: Warren's Disease Dermatologic History: Reports: Eczema, Psoriasis - Infectious Disease History Infectious Disease History: Reports: Chicken Pox - Past Surgical History HEENT Surgical History: Reports: Adenoidectomy, Tonsillectomy GI Surgical History: Reports: Colonoscopy, EGD, Hernia, Abdominal Female Surgical History: Reports: Section, Lithotripsy/ESWL, Tubal Ligation Social & Family History - Family History Family Medical History: Noncontributory - Tobacco Use Tobacco Use Status *Q: Never Tobacco User - Caffeine Use Caffeine Use: Reports: None - Recreational Drug Use Recreational Drug Use: No - Living Situation & Occupation Living situation: Reports: , with Spouse, with Family (2 sons) Occupation: Employed ([employer]) ED ROS GENERAL - Review of Systems Review Of Systems: See Below Constitutional: Reports: Malaise, Weakness, Fatigue. Denies: Fever, Chills HEENT: Reports: No Symptoms Respiratory: Reports: Shortness of Breath. Denies: Cough Cardiovascular: Reports: No Symptoms Endocrine: Reports: No Symptoms GI/Abdominal: Reports: Nausea. Denies: Abdominal Pain, Vomiting : Reports: No Symptoms Musculoskeletal: Reports: Back Pain Skin: Reports: No Symptoms Neurological: Reports: No Symptoms ED EXAM, GENERAL - Physical Exam Exam: See Below Exam Limited By: No Limitations General Appearance: Alert, No Apparent Distress Ears: Normal External Exam Nose: Normal Inspection Head: Atraumatic, Normocephalic Neck: Normal Inspection Respiratory/Chest: No Respiratory Distress, Lungs Clear, Normal Breath Sounds Cardiovascular: Regular Rate, Rhythm, No Edema, No Murmur GI/Abdominal: Soft, Non-Tender, No Organomegaly, No Mass Back Exam: Other (Pain upon palpation to the low back.) Extremities: Normal Inspection Course - Vital Signs Last Recorded V/S: Last Vital Signs Temp 97.0 F 08/14/20 08:27 Pulse 92 08/14/20 08:27 Resp 19 08/14/20 08:27 BP 162/103 H 08/14/20 08:27 Pulse Ox 100 08/14/20 08:27 - Orders/Labs/Meds Orders: Active Orders 24 hr Category Date Time Status Peripheral IV Care [RC] . DIRECTED Care 08/14/20 09:00 Active CBC WITH AUTO DIFF [HEME] Stat Lab 08/14/20 09:25 Results Sodium Chloride 0.9% [Saline Flush] Med 08/14/20 08:59 Active 10 ml FLUSH ASDIRECTED PRN ED Antiemetic Medication Reflex [OM.PC] Stat Oth 08/14/20 08:59 Ordered Peripheral IV Insertion Adult [OM.PC] Stat Oth 08/14/20 08:59 Ordered Medication Orders Sodium Chloride (Saline Flush) 10 ml FLUSH ASDIRECTED PRN PRN Reason: Keep Vein Open Last Admin: 08/14/20 09:29 Dose: 10 ml Documented by: DONALD Labs: Laboratory Tests 08/14/20 08/14/20 Range/Units 09:25 09:25 WBC 11.67 H (3.98-10.04) K/mm3 RBC 4.61 (3.98-5.22) M/mm3 Hgb 13.8 (11.2-15.7) gm/dl Hct 42.6 (34.1-44.9) % MCV 92.4 (79.4-94.8) fl MCH 29.9 (25.6-32.2) pg MCHC 32.4 (32.2-35.5) g/dl RDW Std Deviation 44.6 (36.4-46.3) fL Plt Count 306 (182-369) K/mm3 MPV 10.2 (9.4-12.3) fl Neut % (Auto) 69.4 (34.0-71.1) % Lymph % (Auto) 19.5 (19.3-51.7) % [place] % (Auto) 9.9 (4.7-12.5) % Eos % (Auto) 0.3 L (0.7-5.8) Baso % (Auto) 0.2 (0.1-1.2) % Neut # (Auto) 8.09 H (1.56-6.13) K/mm3 Lymph # (Auto) 2.28 (1.18-3.74) K/mm3 [place] # (Auto) 1.16 H (0.24-0.36) K/mm3 Eos # (Auto) 0.04 (0.04-0.36) K/mm3 Baso # (Auto) 0.02 (0.01-0.08) K/mm3 Sodium 140 (136-145) mEq/L Potassium 4.4 (3.5-5.1) mEq/L Chloride 102 (98-107) mEq/L Carbon Dioxide 30 (21-32) mEq/L Anion Gap 12.4 (5-15) BUN 16 (7-18) mg/dL Creatinine 0.7 (0.55-1.02) mg/dL Est Cr Clr Drug Dosing 75.78 mL/min Estimated GFR (MDRD) > 60 (>60) mL/min BUN/Creatinine Ratio 22.9 H (14-18) Glucose 97 (74-106) mg/dL Calcium 9.3 (8.5-10.1) mg/dL Magnesium 2.2 (1.8-2.4) mg/dl Total Bilirubin 0.3 (0.2-1.0) mg/dL AST 19 (15-37) U/L ALT 54 (14-59) U/L Alkaline Phosphatase 90 (46-116) U/L Total Protein 7.8 (6.4-8.2) g/dl Albumin 3.7 (3.4-5.0) g/dl Globulin 4.1 gm/dL Albumin/Globulin Ratio 0.9 L (1-2) Meds: Medications Generic Name Dose Route Start Last Admin Trade Name Winnie PRN Reason Stop Dose Admin Sodium Chloride 10 ml 08/14/20 08:59 08/14/20 09:29 Saline Flush FLUSH 10 ml ASDIRECTED PRN Administration Keep Vein Open Discontinued Medications Generic Name Dose Route Start Last Admin Trade Name Winnie PRN Reason Stop Dose Admin Cyclobenzaprine HCl 10 mg 08/14/20 09:00 08/14/20 09:29 Flexeril PO 08/14/20 09:01 10 mg ONETIME ONE Administration Hydrocortisone Sodium Succinate 100 mg 08/14/20 09:00 08/14/20 09:29 Solu-Cortef IVPUSH 08/14/20 09:01 100 mg ONETIME ONE Administration Hydromorphone HCl 1 mg 08/14/20 09:00 08/14/20 09:28 Dilaudid IVPUSH 08/14/20 09:01 1 mg ONETIME ONE Administration Sodium Chloride 1,000 mls @ 1,000 mls/hr 08/14/20 08:59 08/14/20 09:28 Normal Saline IV 08/14/20 09:58 1,000 mls/hr .BOLUS STA Administration Ondansetron HCl 4 mg 08/14/20 08:59 08/14/20 09:28 Zofran IVPUSH 08/14/20 09:00 4 mg ONETIME ONE Administration - Re-Assessments/Exams Free Text/Narrative Re-Assessment/Exam: 08/14/20 09:46 I ordered an IV NS 1L bolus, zofran 4mg IV, dilaudid 1mg IV, flexeril 10mg PO, hydrocortisone 100mg IV and labs. 08/14/20 10:36 He WBC was slightly elevated at 11.67. Her CMP looks good and her megnesium is normal. I will discharge her home. Departure - Departure Time of Disposition: 10:40 Disposition: Home, Self-Care 01 Condition: Good Clinical Impression: Addisons disease Low back pain Qualifiers: Chronicity: chronic Back pain laterality: midline Sciatica presence: without sciatica Qualified Code(s): M54.5 - Low back pain; G89.29 - Other chronic pain - Discharge Information *PRESCRIPTION DRUG MONITORING PROGRAM REVIEWED*: No *COPY OF PRESCRIPTION DRUG MONITORING REPORT IN PATIENT BUSTER: No Prescriptions: Cyclobenzaprine [Flexeril] 10 mg PO TID PRN #20 tab PRN Reason: Pain Hydrocodone/Acetaminophen [Hydrocodone-Acetamin 5-325 mg] 1 - 2 each PO Q6HR PRN #15 tablet PRN Reason: Pain Referrals: PCP,Not In Area [Primary Care Provider] - Forms: ED Department Discharge, ED Return to Work/School Form Additional Instructions: Take your medication as prescribed. Take motrin or tylenol for your back pain. If that does not help, try the hydrocodone and flexeril. Please return if you are worse. Sepsis Event Note (ED) - Evaluation Sepsis Screening Result: No Definite Risk - Focused Exam Vital Signs: Vital Signs Temp Pulse Resp BP Pulse Ox 08/14/20 08:27 97.0 F 92 19 162/103 H 100 - My Orders Last 24 Hours: My Active Orders 08/14/20 08:59 Sodium Chloride 0.9% [Saline Flush] 10 ml FLUSH ASDIRECTED PRN ED Antiemetic Medication Reflex [OM.PC] Stat Peripheral IV Insertion Adult [OM.PC] Stat 08/14/20 09:00 Peripheral IV Care [RC] . DIRECTED 08/14/20 09:25 CBC WITH AUTO DIFF [HEME] Stat - Assessment/Plan Last 24 Hours: My Active Orders 08/14/20 08:59 Sodium Chloride 0.9% [Saline Flush] 10 ml FLUSH ASDIRECTED PRN ED Antiemetic Medication Reflex [OM.PC] Stat Peripheral IV Insertion Adult [OM.PC] Stat 08/14/20 09:00 Peripheral IV Care [RC] . DIRECTED 08/14/20 09:25 CBC WITH AUTO DIFF [HEME] Stat
== END 2020-08-14 11:15 | disposition home or self-care (01) ==
LOC: JD.ED 08:20
DX: E27.1 Primary adrenocortical insufficiency (principal); G89.29 Other chronic pain; M54.5 Low back pain; J45.909 Unspecified asthma, uncomplicated; I10 Essential (primary) hypertension; K21.9 Gastro-esophageal reflux disease without esophagitis; Z88.1 Allergy status to other antibiotic agents; Z88.5 Allergy status to narcotic agent; Z88.0 Allergy status to penicillin; Z79.899 Other long term (current) drug therapy; Z90.49 Acquired absence of other specified parts of digestive tract; Z98.51 Tubal ligation status
CPT/HCPCS: 36415; 80053; 83735; 85025; 96374; 96375; 99284; A9270; J1170; J1720; J2405; J7030

== ENCOUNTER 2020-09-17 19:50 | Emergency (ER) | payer MEDICAID ==
[2020-09-17] MEDS ORDERED: Sodium Chloride 0.9% 10 ML Syringe FLUSH PRN (20:27)
--- NOTE | 2020-09-17 20:40 | EDM.PDOC ---
ED HPI GENERAL MEDICAL PROBLEM - General Chief Complaint: General Stated Complaint: swollen feet and sob Time Seen by Provider: 09/17/20 20:17 Source of Information: Reports: Patient, RN Notes Reviewed - History of Present Illness INITIAL COMMENTS - FREE TEXT/NARRATIVE: 45 yr old female has had increased dyspnea, leg and ankle swelling for the past 3 to 4 days. Very occasional cough. No fever or chills. Has been isolating as best she can. Hx of Addisons Disease. Worried about Rupert's Crisis. Generalized Pain Score (Numeric/FACES): 6 - Related Data Allergies Allergy/AdvReac Type Severity Reaction Status Date / Time amoxicillin Allergy Rash Verified 09/17/20 19:58 azithromycin Allergy Vomiting, Verified 09/17/20 19:58 hives codeine Allergy Vomiting, Verified 09/17/20 19:58 hyperactivity. doxycycline Allergy Vomiting, Verified 09/17/20 19:58 hives morphine Allergy Vomiting, Verified 09/17/20 19:58 Itching, hyperactivity. nystatin Allergy Rash Verified 09/17/20 19:58 Penicillins Allergy Vomiting, Verified 09/17/20 19:58 hives Home Meds: Home Meds Famotidine 40 mg PO DAILY 03/04/18 [History] Fluticasone Propionate [Flovent] 1 puff IH DAILY 03/04/18 [History] Metoprolol Succinate 50 mg PO DAILY 03/04/18 [History] tiZANidine HCl [Tizanidine HCl] 4 mg PO BEDTIME 03/04/18 [History] Meclizine [Antivert] 25 mg PO Q6H PRN #20 tab 11/12/18 [Rx] Esomeprazole Magnesium [Nexium] 1 cap PO QAM #14 capsule.dr 06/19/19 [Rx] Dicyclomine [Bentyl] 20 mg PO QID PRN 10/23/19 [History] Hydrocortisone 20 mg PO QPM 10/23/19 [History] Hydrocortisone 30 mg PO QAM 10/23/19 [History] oxyCODONE HCl/Acetaminophen [Oxycodone-Acetaminophen 10-300] 1 each PO Q4H PRN 05/19/20 [History] traZODone HCl [Trazodone HCl] 50 mg PO BEDTIME 05/19/20 [History] amLODIPine Besylate [Amlodipine Besylate] 10 mg PO DAILY 06/19/20 [History] predniSONE [Prednisone] 20 mg PO DAILY PRN 08/14/20 [History] Past Medical History HEENT History: Reports: Other (See Below) Cardiovascular History: Reports: Hypertension Respiratory History: Reports: Asthma Gastrointestinal History: Reports: Diverticulosis, Gastritis, GERD Genitourinary History: Reports: Renal Calculus 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: Musculoskeletal History: Reports: Arthritis Neurological History: Reports: Migraines Psychiatric History: Reports: Other (See Below) 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 Dermatologic History: Reports: Eczema, Psoriasis - Infectious Disease History Infectious Disease History: Reports: Chicken Pox - Past Surgical History HEENT Surgical History: Reports: Adenoidectomy, Tonsillectomy GI Surgical History: Reports: Colonoscopy, EGD, Hernia, Abdominal Female Surgical History: Reports: Section, Lithotripsy/ESWL, Tubal Ligation Social & Family History - Family History Family Medical History: No Pertinent Family History - Tobacco Use Tobacco Use Status *Q: Never Tobacco User Second Hand Smoke Exposure: No - Caffeine Use Caffeine Use: Reports: Soda, Tea - Recreational Drug Use Recreational Drug Use: No - Living Situation & Occupation Living situation: Reports: , with Spouse, with Family (2 sons) Occupation: Employed ([employer]) ED ROS GENERAL - Review of Systems Review Of Systems: See Below Constitutional: Denies: Fever, Chills, Diaphoresis HEENT: Reports: No Symptoms Respiratory: Reports: Shortness of Breath, Cough Cardiovascular: Reports: Edema (bilat LE). Denies: Chest Pain Endocrine: Reports: Fatigue GI/Abdominal: Denies: Abdominal Pain, Nausea, Vomiting Musculoskeletal: Denies: Leg Pain, Joint Pain Skin: Denies: Rash Neurological: Reports: Dizziness (miild). Denies: Trouble Speaking, Difficulty Walking ED EXAM, GENERAL - Physical Exam Exam: See Below General Appearance: Alert, No Apparent Distress Eye Exam: Bilateral Eye: PERRL Head: Atraumatic. No: Facial Swelling Neck: Supple, Other (No JVD) Respiratory/Chest: No Respiratory Distress, Lungs Clear, Normal Breath Sounds. No: Rales, Rhonchi, Wheezing Cardiovascular: Tachycardia GI/Abdominal: Soft, Non-Tender. No: Guarding Extremities: Pedal Edema (mild bilat). No: Leg Pain, Increased Warmth, Redness Neurological: Alert, Oriented, No Motor/Sensory Deficits Skin Exam: Warm, Dry, Normal Color, No Rash #1 Interpretation EKG Date: 09/17/20 Rhythm: NSR [place]: Normal P-Wave: Present QRS: Normal ST-T: Other (T save inversions ant. leads) Course - Vital Signs Last Recorded V/S: Last Vital Signs Temp 97.4 F 09/17/20 19:55 Pulse 102 H 09/17/20 19:55 Resp 19 09/17/20 19:55 BP 175/116 H 09/17/20 19:55 Pulse Ox 96 09/17/20 19:55 - Orders/Labs/Meds Orders: Active Orders 24 hr Category Date Time Status EKG 12 Lead [EKG Documentation Completion] [RC] STAT Care 09/17/20 20:28 Active Peripheral IV Care [RC] . DIRECTED Care 09/17/20 20:28 Active Chest 1V Frontal [CR] Stat Exams 09/17/20 20:28 Taken Sodium Chloride 0.9% [Saline Flush] Med 09/17/20 20:27 Active 10 ml FLUSH ASDIRECTED PRN Peripheral IV Insertion Adult [OM.PC] Stat Oth 09/17/20 20:28 Ordered Medication Orders Sodium Chloride (Saline Flush) 10 ml FLUSH ASDIRECTED PRN PRN Reason: Keep Vein Open Last Admin: 09/17/20 20:34 Dose: 10 ml Documented by: SHONDA Labs: Laboratory Tests 09/17/20 09/17/20 09/17/20 Range/Units 20:35 20:35 20:35 WBC 11.73 H (3.98-10.04) K/mm3 RBC 4.21 (3.98-5.22) M/mm3 Hgb 12.7 (11.2-15.7) gm/dl Hct 37.8 (34.1-44.9) % MCV 89.8 (79.4-94.8) fl MCH 30.2 (25.6-32.2) pg MCHC 33.6 (32.2-35.5) g/dl RDW Std Deviation 46.1 (36.4-46.3) fL Plt Count 279 (182-369) K/mm3 MPV 10.0 (9.4-12.3) fl Neut % (Auto) 76.8 H (34.0-71.1) % Lymph % (Auto) 15.6 L (19.3-51.7) % [place] % (Auto) 7.1 (4.7-12.5) % Eos % (Auto) 0.2 L (0.7-5.8) Baso % (Auto) 0.3 (0.1-1.2) % Neut # (Auto) 9.02 H (1.56-6.13) K/mm3 Lymph # (Auto) 1.83 (1.18-3.74) K/mm3 [place] # (Auto) 0.83 H (0.24-0.36) K/mm3 Eos # (Auto) 0.02 L (0.04-0.36) K/mm3 Baso # (Auto) 0.03 (0.01-0.08) K/mm3 Manual Slide Review Normal smear Sodium 142 (136-145) mEq/L Potassium 3.5 (3.5-5.1) mEq/L Chloride 106 (98-107) mEq/L Carbon Dioxide 25 (21-32) mEq/L Anion Gap 14.5 (5-15) BUN 12 (7-18) mg/dL Creatinine 0.8 (0.55-1.02) mg/dL Est Cr Clr Drug Dosing 65.60 mL/min Estimated GFR (MDRD) > 60 (>60) mL/min BUN/Creatinine Ratio 15.0 (14-18) Glucose 107 H (74-106) mg/dL Calcium 9.0 (8.5-10.1) mg/dL Total Bilirubin 0.3 (0.2-1.0) mg/dL AST 23 (15-37) U/L ALT 41 (14-59) U/L Alkaline Phosphatase 96 (46-116) U/L C-Reactive Protein 0.6 (<1.0) mg/dL NT-Pro-B Natriuret Pep (0-125) pg/mL Total Protein 7.2 (6.4-8.2) g/dl Albumin 3.4 (3.4-5.0) g/dl Globulin 3.8 gm/dL Albumin/Globulin Ratio 0.9 L (1-2) 09/17/20 Range/Units 20:35 WBC (3.98-10.04) K/mm3 RBC (3.98-5.22) M/mm3 Hgb (11.2-15.7) gm/dl Hct (34.1-44.9) % MCV (79.4-94.8) fl MCH (25.6-32.2) pg MCHC (32.2-35.5) g/dl RDW Std Deviation (36.4-46.3) fL Plt Count (182-369) K/mm3 MPV (9.4-12.3) fl Neut % (Auto) (34.0-71.1) % Lymph % (Auto) (19.3-51.7) % [place] % (Auto) (4.7-12.5) % Eos % (Auto) (0.7-5.8) Baso % (Auto) (0.1-1.2) % Neut # (Auto) (1.56-6.13) K/mm3 Lymph # (Auto) (1.18-3.74) K/mm3 [place] # (Auto) (0.24-0.36) K/mm3 Eos # (Auto) (0.04-0.36) K/mm3 Baso # (Auto) (0.01-0.08) K/mm3 Manual Slide Review Sodium (136-145) mEq/L Potassium (3.5-5.1) mEq/L Chloride (98-107) mEq/L Carbon Dioxide (21-32) mEq/L Anion Gap (5-15) BUN (7-18) mg/dL Creatinine (0.55-1.02) mg/dL Est Cr Clr Drug Dosing mL/min Estimated GFR (MDRD) (>60) mL/min BUN/Creatinine Ratio (14-18) Glucose (74-106) mg/dL Calcium (8.5-10.1) mg/dL Total Bilirubin (0.2-1.0) mg/dL AST (15-37) U/L ALT (14-59) U/L Alkaline Phosphatase (46-116) U/L C-Reactive Protein (<1.0) mg/dL NT-Pro-B Natriuret Pep 277 H (0-125) pg/mL Total Protein (6.4-8.2) g/dl Albumin (3.4-5.0) g/dl Globulin gm/dL Albumin/Globulin Ratio (1-2) Meds: Medications Generic Name Dose Route Start Last Admin Trade Name Winnie PRN Reason Stop Dose Admin Sodium Chloride 10 ml 09/17/20 20:27 09/17/20 20:34 Saline Flush FLUSH 10 ml ASDIRECTED PRN Administration Keep Vein Open Discontinued Medications Generic Name Dose Route Start Last Admin Trade Name Winnie PRN Reason Stop Dose Admin Hydrocortisone Sodium Succinate 100 mg 09/17/20 20:54 09/17/20 21:04 Solu-Cortef IVPUSH 09/17/20 20:55 100 mg ONETIME ONE Administration - Re-Assessments/Exams Free Text/Narrative Re-Assessment/Exam: 09/17/20 22:14 labs, vitals have been good, CXR nl. Have given 100 mg solucortef IV. Departure - Departure Time of Disposition: 22:04 Disposition: Home, Self-Care 01 Condition: Fair Clinical Impression: Leg edema, Addisons disease - Discharge Information Instructions: Chester's Disease, Edema, [id number] Referrals: PCP,Not In Area [Primary Care Provider] - Forms: ED Department Discharge Additional Instructions: Elevate legs as much as possible when not walking. Continue current meds. Follow up with your regular medical provider as needed. Sepsis Event Note (ED) - Evaluation Sepsis Screening Result: No Definite Risk - Focused Exam Vital Signs: Vital Signs Temp Pulse Resp BP Pulse Ox 09/17/20 19:55 97.4 F 102 H 19 175/116 H 96 - My Orders Last 24 Hours: My Active Orders 09/17/20 20:27 Sodium Chloride 0.9% [Saline Flush] 10 ml FLUSH ASDIRECTED PRN 09/17/20 20:28 EKG 12 Lead [EKG Documentation Completion] [RC] STAT Peripheral IV Care [RC] . DIRECTED Chest 1V Frontal [CR] Stat Peripheral IV Insertion Adult [OM.PC] Stat - Assessment/Plan Last 24 Hours: My Active Orders 09/17/20 20:27 Sodium Chloride 0.9% [Saline Flush] 10 ml FLUSH ASDIRECTED PRN 09/17/20 20:28 EKG 12 Lead [EKG Documentation Completion] [RC] STAT Peripheral IV Care [RC] . DIRECTED Chest 1V Frontal [CR] Stat Peripheral IV Insertion Adult [OM.PC] Stat
[2020-09-17] MEDS ORDERED: Hydrocortisone Sodium Succinate 100 MG/2 ML SDV IVPUSH ONE (20:54)
--- NOTE | 2020-09-18 13:30 | CR ---
PROCEDURE INFORMATION: Exam: XR Chest, 1 View Exam date and time: 09/17/2020 8:25 PM Age: 45 years old Clinical indication: Patient HX: Dyspnea, peripheral leg edema onset 4 days ago and worsening; Additional info: Prior reports scanned in for your review TECHNIQUE: Imaging protocol: XR of the chest Views: 1 view. COMPARISON: DX Chest 2V 03/01/2020 3:20 PM FINDINGS: Lungs: No overt pulmonary edema.There is no evidence of focal pulmonary consolidation. Pleural space: No pleural effusion. No pneumothorax. Heart/Mediastinum: Heart size top-normal. Bones/joints: No acute bony findings are identified. IMPRESSION: 1. Top-normal heart size. 2. Lungs are grossly clear Thank you for allowing us to participate in the care of your patient. Dictated and Authenticated by: Ludin Bowman MD 09/17/2020 9:58 PM Central Time ([place] & [place]) JU
== END 2020-09-17 22:14 | disposition home or self-care (01) ==
LOC: JD.ED 19:50
DX: R60.0 Localized edema (principal); E27.1 Primary adrenocortical insufficiency; J45.909 Unspecified asthma, uncomplicated; I10 Essential (primary) hypertension; K21.9 Gastro-esophageal reflux disease without esophagitis; Z88.1 Allergy status to other antibiotic agents; Z88.5 Allergy status to narcotic agent; Z88.0 Allergy status to penicillin
CPT/HCPCS: 36415; 71045; 80053; 83880; 85025; 86140; 93005; 96374; 99285; J1720; 93010; 99284

== ENCOUNTER 2021-02-15 14:18 | Emergency (ER) | payer MEDICAID ==
[2021-02-15] MEDS ORDERED: Ondansetron 4 MG/2 ML SDV IVPUSH ONE (14:58)
[2021-02-15] MEDS ORDERED: Sodium Chloride 0.9% 1,000 ML IV STA (14:58)
[2021-02-15] MEDS ORDERED: Hydrocortisone Sodium Succinate 100 MG/2 ML SDV IVPUSH ONE (14:58)
[2021-02-15] MEDS ORDERED: Sodium Chloride 0.9% 10 ML Syringe FLUSH PRN (14:58)
--- NOTE | 2021-02-15 15:07 | CR ---
Chest: Portable view of the chest was obtained. Comparison: Prior chest x-ray of 03/01/20. Soft tissue density is seen lateral to the aortic arch which is an interval change from prior study. Difficult to exclude focal dilatation of the aortic arch. Heart size is difficult to evaluate by portable technique but grossly within normal limits. Lungs are clear. No acute osseous abnormality is appreciated. Impression: 1. Findings next to the aortic arch as noted above. Recommend contrast enhanced chest CT to rule out aortic aneurysm. 2. Nothing acute is otherwise appreciated. Diagnostic code #5
--- NOTE | 2021-02-15 16:09 | EDM.PDOC ---
ED HPI GENERAL MEDICAL PROBLEM - General Chief Complaint: Respiratory Problem Stated Complaint: COUGH FOR 1 WEEK/ NAUSEA AND VOMITING Time Seen by Provider: 02/15/21 14:37 Source of Information: Reports: Patient, RN Notes Reviewed History Limitations: Reports: No Limitations - History of Present Illness INITIAL COMMENTS - FREE TEXT/NARRATIVE: Patient is a 45-year-old female presenting to the emergency department with complaints of a 1 week history of cough as well as onset of nausea, vomiting, and diarrhea last evening into today. She reports a dry, nonproductive cough as well as pain in her chest when coughing or taking a deep breath. She has a loss of appetite but denies losing her sense of taste or smell. She has a history of Lampasas's disease, and states that oftentimes when she gets sick she needs no additional dose of steroids in order to get better. She reports that she tests weekly for Covid for her job with her last negative test being 5 days ago. She denies any fever or chills. Abdomen Pain Score (Numeric/FACES): 6 - Related Data Allergies Allergy/AdvReac Type Severity Reaction Status Date / Time amoxicillin Allergy Rash Verified 09/17/20 19:58 azithromycin Allergy Vomiting, Verified 09/17/20 19:58 hives doxycycline Allergy Vomiting, Verified 09/17/20 19:58 hives morphine Allergy Vomiting, Verified 09/17/20 19:58 Itching, hyperactivity. nystatin Allergy Rash Verified 09/17/20 19:58 Penicillins Allergy Vomiting, Verified 09/17/20 19:58 hives Home Meds: Home Meds Famotidine 40 mg PO DAILY 03/04/18 [History] Fluticasone Propionate [Flovent] 1 puff IH DAILY 03/04/18 [History] Metoprolol Succinate 50 mg PO DAILY 03/04/18 [History] Meclizine [Antivert] 25 mg PO Q6H PRN #20 tab 11/12/18 [Rx] Esomeprazole Magnesium [Nexium] 1 cap PO QAM #14 capsule. 06/19/19 [Rx] Dicyclomine [Bentyl] 20 mg PO QID PRN 10/23/19 [History] Hydrocortisone 20 mg PO QPM 10/23/19 [History] Hydrocortisone 30 mg PO QAM 10/23/19 [History] traZODone HCl [Trazodone HCl] 50 mg PO BEDTIME 05/19/20 [History] amLODIPine Besylate [Amlodipine Besylate] 10 mg PO DAILY 06/19/20 [History] Codeine/Promethazine [Phenergan with Codeine] 5 ml PO Q4HR PRN #100 ml 02/15/21 [Rx] Ondansetron [Zofran ODT] 4 mg PO Q6H PRN #10 tab.dis 02/15/21 [Rx] Past Medical History HEENT History: Reports: Other (See Below) Cardiovascular History: Reports: Hypertension Respiratory History: Reports: Asthma Gastrointestinal History: Reports: Diverticulosis, Gastritis, GERD Genitourinary History: Reports: Renal Calculus 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: Musculoskeletal History: Reports: Arthritis Neurological History: Reports: Migraines Psychiatric History: Reports: Other (See Below) Endocrine/Metabolic History: Reports: [place]'s Disease Dermatologic History: Reports: Eczema, Psoriasis - Infectious Disease History Infectious Disease History: Reports: Chicken Pox - Past Surgical History HEENT Surgical History: Reports: Adenoidectomy, Tonsillectomy GI Surgical History: Reports: Colonoscopy, EGD, Hernia, Abdominal Female Surgical History: Reports: Section, Lithotripsy/ESWL, Tubal Ligation Social & Family History - Family History Family Medical History: No Pertinent Family History - Tobacco Use Tobacco Use Status *Q: Never Tobacco User - Caffeine Use Caffeine Use: Reports: Soda - Recreational Drug Use Recreational Drug Use: No - Living Situation & Occupation Living situation: Reports: , with Spouse, with Family (2 sons) Occupation: Employed ([employer]) ED ROS GENERAL - Review of Systems Review Of Systems: See Below Constitutional: Reports: Decreased Appetite. Denies: Fever, Chills HEENT: Reports: No Symptoms Respiratory: Reports: Pleuritic Chest Pain, Cough. Denies: Shortness of Breath, Wheezing Cardiovascular: Reports: No Symptoms. Denies: Chest Pain, Dyspnea on Exertion, Lightheadedness Endocrine: Reports: No Symptoms GI/Abdominal: Reports: Abdominal Pain (generalized), Diarrhea, Nausea, Vomiting : Reports: No Symptoms Musculoskeletal: Reports: No Symptoms Skin: Reports: No Symptoms Neurological: Reports: No Symptoms Psychiatric: Reports: No Symptoms Hematologic/Lymphatic: Reports: No Symptoms Immunologic: Reports: No Symptoms ED EXAM, GENERAL - Physical Exam Exam: See Below Exam Limited By: No Limitations General Appearance: Alert, WD/WN, No Apparent Distress Respiratory/Chest: No Respiratory Distress, Lungs Clear, Normal Breath Sounds, No Accessory Muscle Use, Chest Non-Tender Cardiovascular: Normal Peripheral Pulses, Regular Rate, Rhythm, No Edema, No Gallop, No JVD, No Murmur, No Rub GI/Abdominal: Normal Bowel Sounds, Soft, No Organomegaly, No Distention, No Abnormal Bruit, No Mass, Tender (mild generalized tenderness) Neurological: Alert, Oriented, CN II-XII Intact, Normal Cognition, Normal Gait, Normal Reflexes, No Motor/Sensory Deficits Psychiatric: Normal Affect, Normal Mood Skin Exam: Warm, Dry, Intact, Normal Color, No Rash Course - Vital Signs Last Recorded V/S: Last Vital Signs Temp 97.6 F 02/15/21 14:46 Pulse 84 02/15/21 14:46 Resp 20 02/15/21 14:46 BP 140/94 H 02/15/21 14:46 Pulse Ox 98 02/15/21 14:46 - Orders/Labs/Meds Orders: Active Orders 24 hr Category Date Time Status Peripheral IV Insertion Adult [OM.PC] Stat Oth 02/15/21 14:58 Ordered Labs: Laboratory Tests 02/15/21 02/15/21 02/15/21 Range/Units 14:54 14:54 15:30 WBC 8.87 (3.98-10.04) K/mm3 RBC 4.59 (3.98-5.22) M/mm3 Hgb 13.1 (11.2-15.7) gm/dl Hct 40.0 (34.1-44.9) % MCV 87.1 (79.4-94.8) fl MCH 28.5 (25.6-32.2) pg MCHC 32.8 (32.2-35.5) g/dl RDW Std Deviation 45.3 (36.4-46.3) fL Plt Count 346 (182-369) K/mm3 MPV 10.3 (9.4-12.3) fl Neut % (Auto) 62.9 (34.0-71.1) % Lymph % (Auto) 25.9 (19.3-51.7) % Villalba % (Auto) 9.7 (4.7-12.5) % Eos % (Auto) 0.5 L (0.7-5.8) Baso % (Auto) 0.5 (0.1-1.2) % Neut # (Auto) 5.59 (1.56-6.13) K/mm3 Lymph # (Auto) 2.30 (1.18-3.74) K/mm3 Villalba # (Auto) 0.86 H (0.24-0.36) K/mm3 Eos # (Auto) 0.04 (0.04-0.36) K/mm3 Baso # (Auto) 0.04 (0.01-0.08) K/mm3 Sodium 140 (136-145) mEq/L Potassium 3.5 (3.5-5.1) mEq/L Chloride 104 (98-107) mEq/L Carbon Dioxide 24 (21-32) mEq/L Anion Gap 15.5 H (5-15) BUN 12 (7-18) mg/dL Creatinine 0.8 (0.55-1.02) mg/dL Est Cr Clr Drug Dosing TNP Estimated GFR (MDRD) > 60 (>60) mL/min BUN/Creatinine Ratio 15.0 (14-18) Glucose 99 (74-106) mg/dL Calcium 9.2 (8.5-10.1) mg/dL Total Bilirubin 0.3 (0.2-1.0) mg/dL AST 54 H (15-37) U/L ALT 58 (14-59) U/L Alkaline Phosphatase 114 (46-116) U/L C-Reactive Protein 1.0 (<1.0) mg/dL Total Protein 8.0 (6.4-8.2) g/dl Albumin 4.1 (3.4-5.0) g/dl Globulin 3.9 gm/dL Albumin/Globulin Ratio 1.1 (1-2) Influenza Type A RNA Negative (NEGATIVE) Influenza Type B RNA Negative (NEGATIVE) SARS-CoV-2 RNA (YOLA) Negative (NEGATIVE) Meds: Medications Discontinued Medications Generic Name Dose Route Start Last Admin Trade Name Freq PRN Reason Stop Dose Admin Hydrocortisone Sodium Succinate 100 mg 02/15/21 14:58 02/15/21 15:12 Hydrocortisone Sodium Succinate 100 Mg/2 Ml Sdv IVPUSH 02/15/21 14:59 100 mg ONETIME ONE Administration Sodium Chloride 1,000 mls @ 999 mls/hr 02/15/21 14:58 02/15/21 15:14 Normal Saline IV 02/15/21 15:58 999 mls/hr NOW STA Administration Sodium Chloride 100 mls @ 60 mls/hr 02/15/21 17:00 02/15/21 16:59 Normal Saline IV 60 mls/hr ASDIRECTED GODWIN Administration Iopamidol 100 ml 02/15/21 16:50 02/15/21 16:58 Iopamidol 755 Mg/Ml 100 Ml Bottle IVPUSH 02/15/21 16:51 100 ml ONETIME ONE Administration Iopamidol 50 ml 02/15/21 16:50 02/15/21 16:59 Iopamidol 755 Mg/Ml 50 Ml Bottle IVPUSH 02/15/21 16:51 50 ml ONETIME ONE Administration Ondansetron HCl 4 mg 02/15/21 14:58 02/15/21 15:10 Ondansetron 4 Mg/2 Ml Sdv IVPUSH 02/15/21 14:59 4 mg ONETIME ONE Administration Sodium Chloride 10 ml 02/15/21 14:58 02/15/21 15:16 Sodium Chloride 0.9% 10 Ml Syringe FLUSH 10 ml ASDIRECTED PRN Administration Keep Vein Open Sodium Chloride 10 ml 02/15/21 17:00 02/15/21 16:59 Sodium Chloride 0.9% 10 Ml Syringe FLUSH 10 ml ASDIRECTED GODWIN Administration - Re-Assessments/Exams Free Text/Narrative Re-Assessment/Exam: 02/15/21 1530 Hematology is grossly unremarkable. Chest x-ray shows soft tissue density seen lateral to the aortic arch which is interval change from prior study. Radiologist recommends CT scan of the chest with IV contrast to rule out aortic aneurysm. Patient is feeling better. I have ordered a CT scan of the chest with IV contrast. 02/15/[address] angiogram of the chest abdomen and pelvis shows no findings of thoracic aortic aneurysm or dissection. Slight scarring within the left lung base. Nothing acute visualized on CT. Patient is feeling better. I will discharge her home with a prescription for Phenergan with codeine as well as Zofran for nausea. Discharge instructions as documented. Departure - Departure Time of Disposition: 17:29 Disposition: Home, Self-Care 01 Condition: Good Clinical Impression: Viral respiratory illness Nausea & vomiting Qualifiers: Vomiting type: unspecified Vomiting Intractability: non-intractable Qualified Code(s): R11.2 - Nausea with vomiting, unspecified - Discharge Information *PRESCRIPTION DRUG MONITORING PROGRAM REVIEWED*: No *COPY OF PRESCRIPTION DRUG MONITORING REPORT IN PATIENT BUSTER: No Prescriptions: Codeine/Promethazine [Phenergan with Codeine] 5 ml PO Q4HR PRN #100 ml PRN Reason: Cough Ondansetron [Zofran ODT] 4 mg PO Q6H PRN #10 tab.dis PRN Reason: Nausea/Vomiting Instructions: Nausea, Adult, Upper Respiratory Infection, Adult, [id number] Referrals: PCP,Not In Area [Primary Care Provider] - Forms: ED Department Discharge, ED Return to Work/School Form Additional Instructions: You were seen in the emergency department today for cough, nausea, vomiting, and diarrhea. Work-up included blood work chest x-ray, and a CT angiogram your chest. Your work-up was found to be normal. While in the ER, you received IV fluids, Zofran for nausea, and a dose of Solu-Cortef through the IV. A prescription for Phenergan with codeine for cough and Zofran for nausea has been provided. Uses medications as prescribed. Ensure you are taking an adequate amount of fluid and continue your previously prescribed meds. Return to ER for any new or worsening symptoms of concern. Sepsis Event Note (ED) - Evaluation Sepsis Screening Result: No Definite Risk - Focused Exam Vital Signs: Vital Signs Temp Pulse Resp BP Pulse Ox 02/15/21 14:46 97.6 F 84 20 140/94 H 98 - My Orders Last 24 Hours: My Active Orders 02/15/21 14:58 Peripheral IV Insertion Adult [OM.PC] Stat - Assessment/Plan Last 24 Hours: My Active Orders 02/15/21 14:58 Peripheral IV Insertion Adult [OM.PC] Stat
[2021-02-15 16:21] LABS: CORONAVIRUS COVID-19 NAA NEGATIVE (NEGATIVE)
[2021-02-15] MEDS ORDERED: Iopamidol 755 MG/ML 50 ML Bottle IVPUSH ONE (16:50)
[2021-02-15] MEDS ORDERED: Iopamidol 755 Mg/ML 100 ML Bottle IVPUSH ONE (16:50)
[2021-02-15] MEDS ORDERED: Sodium Chloride 0.9% 10 ML Syringe FLUSH SCH (17:00)
[2021-02-15] MEDS ORDERED: Sodium Chloride 0.9% 100 ML IV SCH (17:00)
--- NOTE | 2021-02-15 17:17 | CT ---
CT chest Technique: Multiple axial sections through the chest were obtained. Intravenous contrast was utilized. Reconstructed coronal and sagittal images were obtained. Comparison: Prior chest x-ray performed earlier on the same day (02:49 PM). Findings: Thoracic aorta shows no aneurysm. No dissection is seen. Density on chest x-ray is likely artifact. No mediastinal or hilar mass or adenopathy is seen. No pericardial thickening is seen. No axillary adenopathy is noted. No pericardial thickening is appreciated. Lung window settings were reviewed which shows no acute parenchymal abnormality. Linear density is noted within the left lung base most likely representing slight scarring. Bone window settings were reviewed which show no acute osseous abnormality. Impression: 1. No findings of thoracic aortic aneurysm or dissection. 2. Slight scarring within the left lung base. 3. Nothing acute is seen on CT study of the chest. Diagnostic code #2 CT abdomen and pelvis Technique: Multiple axial sections were obtained from above the dome of the diaphragm inferiorly through the pubic symphysis. Intravenous contrast was utilized. Reconstructed coronal and sagittal images were obtained. Comparison: Prior CT abdomen and pelvis exam of 06/17/19. Findings: Liver shows a cyst within the right lobe measuring 3.8 cm. There is a small enhancing lesion within the anterior lobe of the liver which is similar to prior exam and on this study measures approximately 1.3 cm. This finding is most likely is due to a hemangioma. Prior CT study also showed a cyst within the dome of the left lobe of the liver which is believed to be stable. Fatty infiltration is also noted within the liver. Spleen size is normal. Adrenal glands shows no focal nodule. Pancreas shows no discrete abnormality. Gallbladder contains no calcified gallstones. Kidneys show symmetric contrast enhancement. Scattered small nonobstructing calculi are seen within both kidneys. Small cyst is noted within both right and left kidneys. No ureteral dilatation is seen. Abdominal aorta shows no aneurysm. No dissection is seen. The celiac axis and superior mesenteric arteries as well as renal arteries are patent. Inferior mesenteric arteries are patent. No retroperitoneal adenopathy or mesenteric abnormalities are seen. No pelvic mass or adenopathy is appreciated. Appendix is seen which is normal. No free fluid or inflammatory change is appreciated. Delayed images were obtained which show contrast within the ureters and bladder. Bone window settings were reviewed which show no acute osseous abnormality. Impression: 1. Abdominal aorta shows no aneurysm. Main vessels off the aorta are patent. 2. Small nonobstructing calculi within both kidneys are seen. Both kidneys also show several small cysts. 3. No additional abnormality is appreciated on CT study of the abdomen and pelvis. Diagnostic code #2
== END 2021-02-15 18:18 | disposition home or self-care (01) ==
LOC: JD.ED 14:18
DX: B34.9 Viral infection, unspecified (principal); R11.2 Nausea with vomiting, unspecified; K21.9 Gastro-esophageal reflux disease without esophagitis; Z20.822 Contact with and (suspected) exposure to COVID-19; Z88.0 Allergy status to penicillin; Z88.6 Allergy status to analgesic agent; Z88.1 Allergy status to other antibiotic agents; Z79.899 Other long term (current) drug therapy
CPT/HCPCS: 0240U; 36415; 71045; 71260; 74177; 80053; 85025; 86140; 96374; 96375; 99284; J1720; J2405; J7030; Q9967

== ENCOUNTER 2021-07-22 05:49 | Emergency (ER) | payer MEDICAID ==
[2021-07-22] MEDS ORDERED: Sodium Chloride 0.9% 1,000 ML IV ONE (06:47)
--- NOTE | 2021-07-22 07:13 | EDM.PDOC ---
ED HPI GENERAL MEDICAL PROBLEM - General Chief Complaint: General Stated Complaint: ADDISONS DISEASE ISSUES Time Seen by Provider: 07/22/21 06:29 Source of Information: Reports: Patient History Limitations: Reports: No Limitations - History of Present Illness INITIAL COMMENTS - FREE TEXT/NARRATIVE: Ms. Acosta is a 45-year-old woman who now presents the ED stating that she was diagnosed with [place] disease in 2019 by a single morning serum cortisol level, and is being treated with hydrocortisone 30 mg po QAM, 20 mg po QPM. She states that she is now suffering an addisonian crisis, by which she means that her body is "shutting down" with insomnia, fatigue, and weakness, that has progressively been getting worse over the past week. She states that she feels dehydrated. She also reports having had a fever for the past few days. She states that she has been taking her hydrocortisone as prescribed, but that she has not taken any extra doses. Additionally, she has not taken any other medications, such as acetaminophen or ibuprofen, to treat her headache. She states that she has been told that when she develops an addisonian crisis, she is to go to the ER to get IV steroids and IV fluid. The patient states that she suffers from chronic/recurrent constipation. No recent fever, chills, nausea, vomiting, diarrhea, or urinary symptoms. When asked about her blood pressure, she stated that her blood pressure is sometimes high, sometimes low. Here in the ED, the patient's initial BP is found to be mildly elevated at 144/108, otherwise, she is hemodynamically stable, afebrile, saturating 98% on room air. She appears to be comfortable, in no acute distress. Prior to a week ago, the patient denies having a recent fever, chills, sore throat, ear pain, nasal or sinus congestion, cough, dyspnea, chest pain, palpitations, nausea, vomiting, constipation, diarrhea, abdominal pain, urinary symptoms, recent weight gain or weight loss, recent bloody bowel movements or black bowel movements, recent joint aches, headaches, or rashes. The patient's PCP is MIYA Shipman, at the [facility] in [place]. She does not recall the name of her Silverware Cleaner, stating that he dropped her as a patient because her medical problems were too complex, and he could not figure them out. She states that she has an appointment to see a different Silverware Cleaner, whose name she also cannot recall. She has received 2 COVID vaccinations. Headache Pain Score (Numeric/FACES): 7 - Related Data Allergies Allergy/AdvReac Type Severity Reaction Status Date / Time amoxicillin Allergy Rash Verified 07/22/21 06:03 azithromycin Allergy Vomiting, Verified 07/22/21 06:03 hives doxycycline Allergy Vomiting, Verified 07/22/21 06:03 hives morphine Allergy Vomiting, Verified 07/22/21 06:03 Itching, hyperactivity. nystatin Allergy Rash Verified 07/22/21 06:03 Penicillins Allergy Vomiting, Verified 07/22/21 06:03 hives Home Meds: Home Meds Famotidine 40 mg PO DAILY 03/04/18 [History] Fluticasone Propionate [Flovent] 1 puff IH DAILY 03/04/18 [History] Metoprolol Succinate 50 mg PO DAILY 03/04/18 [History] Meclizine [Antivert] 25 mg PO Q6H PRN #20 tab 11/12/18 [Rx] Esomeprazole Magnesium [Nexium] 1 cap PO QAM #14 capsule.dr 06/19/19 [Rx] Dicyclomine [Bentyl] 20 mg PO QID PRN 10/23/19 [History] Hydrocortisone 20 mg PO QPM 10/23/19 [History] Hydrocortisone 30 mg PO QAM 10/23/19 [History] traZODone HCl [Trazodone HCl] 50 mg PO BEDTIME 05/19/20 [History] amLODIPine Besylate [Amlodipine Besylate] 10 mg PO DAILY 06/19/20 [History] Codeine/Promethazine [Phenergan with Codeine] 5 ml PO Q4HR PRN #100 ml 02/15/21 [Rx] Ondansetron [Zofran ODT] 4 mg PO Q6H PRN #10 tab.dis 02/15/21 [Rx] Past Medical History Cardiovascular History: Reports: Hypertension Gastrointestinal History: Reports: Diverticulosis (diverticulitis), Gastritis, GERD Genitourinary History: Reports: Renal Calculus Musculoskeletal History: Reports: Osteoarthritis (spine) Psychiatric History: Reports: Other (See Below) (Insomnia) Endocrine/Metabolic History: Reports: [place]'s Disease (diagnosis in doubt) - Infectious Disease History Infectious Disease History: Reports: Chicken Pox - Past Surgical History HEENT Surgical History: Reports: Adenoidectomy, Tonsillectomy GI Surgical History: Reports: Colonoscopy (x 3), EGD (x 4), Hernia, Abdominal (periumbilical) Female Surgical History: Reports: Section (x 2), Lithotripsy/ESWL (x 2), Tubal Ligation Social & Family History - Tobacco Use Tobacco Use Status *Q: Never Tobacco User Second Hand Smoke Exposure: No - Caffeine Use Caffeine Use: Reports: Soda - Alcohol Use Alcohol Use History: No - Recreational Drug Use Recreational Drug Use: No - Living Situation & Occupation Living situation: Reports: , with Family (2 sons) 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 ED EXAM, GENERAL - Physical Exam Exam: See Below Exam Limited By: No Limitations General Appearance: Alert, WD/WN, No Apparent Distress Eye Exam: Bilateral Eye: EOMI, Normal Inspection Ears: Normal External Exam, Hearing Grossly Normal Nose: Normal Inspection Throat/Mouth: Normal Inspection, Normal Lips, Normal Voice, No Airway Compromise Head: Atraumatic, Normocephalic Neck: Normal Inspection, Full Range of Motion Respiratory/Chest: No Respiratory Distress, Lungs Clear, Normal Breath Sounds, No Accessory Muscle Use Cardiovascular: Normal Peripheral Pulses, Regular Rate, Rhythm, No Edema, No Gallop, No JVD, No Murmur, No Rub Peripheral Pulses: 3+: Radial (L), Radial (R) GI/Abdominal: Normal Bowel Sounds, Soft, Non-Tender, No Organomegaly, No Distention, No Abnormal Bruit, No Mass Back Exam: Normal Inspection, Full Range of Motion, NT Extremities: Normal Inspection, Normal Range of Motion, No Pedal Edema, Normal Capillary Refill Neurological: Alert, Oriented, Normal Cognition, No Motor/Sensory Deficits Psychiatric: Normal Affect Skin Exam: Warm, Dry, Intact, Normal Color, No Rash Course - Vital Signs Last Recorded V/S: Last Vital Signs Temp 36.9 C 07/22/21 06:03 Pulse 73 07/22/21 06:03 Resp 16 07/22/21 06:03 BP 144/108 H 07/22/21 06:03 Pulse Ox 98 07/22/21 06:03 - Orders/Labs/Meds Orders: Active Orders 24 hr Category Date Time Status CBC WITH MANUAL DIFF [HEME] Stat Lab 07/22/21 06:47 Ordered Sodium Chloride 0.9% [Normal Saline] 1,000 ml Med 07/22/21 06:47 Active IV ONETIME Medication Orders Sodium Chloride (Normal Saline) 1,000 mls @ 999 mls/hr IV ONETIME ONE Stop: 07/22/21 07:47 Last Admin: 07/22/21 06:53 Dose: 999 mls/hr Documented by: ALEX Labs: Laboratory Tests 07/22/21 07/22/21 Range/Units 06:50 06:50 WBC 8.08 (3.98-10.04) K/mm3 RBC 4.73 (3.98-5.22) M/mm3 Hgb 13.2 (11.2-15.7) gm/dl Hct 40.4 (34.1-44.9) % MCV 85.4 (79.4-94.8) fl MCH 27.9 (25.6-32.2) pg MCHC 32.7 (32.2-35.5) g/dl RDW Std Deviation 42.3 (36.4-46.3) fL Plt Count 302 (182-369) K/mm3 MPV 10.5 (9.4-12.3) fl Sodium 140 (136-145) mEq/L Potassium 3.7 (3.5-5.1) mEq/L Chloride 105 (98-107) mEq/L Carbon Dioxide 27 (21-32) mEq/L Anion Gap 11.7 (5-15) BUN 11 (7-18) mg/dL Creatinine 0.7 (0.55-1.02) mg/dL Est Cr Clr Drug Dosing 71.36 mL/min Estimated GFR (MDRD) > 60 (>60) mL/min BUN/Creatinine Ratio 15.7 (14-18) Glucose 104 H (70-99) mg/dL Calcium 8.8 (8.5-10.1) mg/dL Magnesium 2.0 (1.8-2.4) mg/dL Total Bilirubin 0.2 (0.2-1.0) mg/dL AST 16 (15-37) U/L ALT 26 (14-59) U/L Alkaline Phosphatase 90 (46-116) U/L Total Protein 7.3 (6.4-8.2) g/dl Albumin 3.4 (3.4-5.0) g/dl Globulin 3.9 gm/dL Albumin/Globulin Ratio 0.9 L (1-2) Meds: Medications Generic Name Dose Route Start Last Admin Trade Name Winnie PRN Reason Stop Dose Admin Sodium Chloride 1,000 mls @ 999 mls/hr 07/22/21 06:47 07/22/21 06:53 Normal Saline IV 07/22/21 07:47 999 mls/hr ONETIME ONE Administration - Re-Assessments/Exams Free Text/Narrative Re-Assessment/Exam: 07/22/21 07:04 I ordered a CBC, CMP, and magnesium level, and in the meantime, the patient will be given a bolus of IV fluid. I am not entirely convinced that the patient has [place] disease, and I am certain that she is not suffering an Addisonian crisis. I would like to discuss the case with an Silverware Cleaner. Case discussed with Eddie at [facility] at 06:48. Unfortunately, [facility] does not have an Silverware Cleaner on-call. Eddie stated that the patient was last seen at [facility] in July 2019, however, there was no Endocrinology consult at that time. He was able to determine that the patient had been referred to an Silverware Cleaner by her PCP, however, the patient never made an appointment. 07/22/21 07:13 [facility] contacted at 06:53. Case discussed with Constanza at [facility] at 07:11. She stated that the do not have an surgery aid refractive surgeon. Reviewing their records, the patient has seen their pain service and Urology, but no Silverware Cleaner. 07/22/21 07:43 Silvia at [facility] contacted at 07:15. The patient's CBC is unremarkable. Her CMP is remarkable for slight hyperglycemia of 104, with the remainder of her CMP being unremarkable. Her magnesium level is within normal limits at 2.0. Called back by Dr. Saleh, Silverware Cleaner at [facility], at 07:38. He agreed that the diagnosis of [place] disease is suspicious, and that the patient is definitely not in an Addisonian crisis at this time. Additionally, he stated that the patient is on WAY too much hydrocortisone - the maximum dose is 20 mg po QAM and 10 mg po QPM. A stress dose in an actual Addisonian crisis is 20 mg po TID = 60 mg daily - the patient is on nearly that, at 50 mg daily without being in an Addisonian crisis. That being said, however, because she has likely been on a high dose since 2018, she would need to be tapered down. If it is true that she will be following up with an Silverware Cleaner soon, he recommended that we leave that taper to them. 07/22/21 07:55 Test results and my conversation with Dr. Saleh discussed with the patient, with ALICIA Luna present. The patient became very angry, stating that the Silverware Cleaner doesn't know her, that lab results don't mean anything, and that I am a bad doctor. She stated that every other time she has been to this ED, she simply gets what she wants, without question. She insisted that she speak with a green end department supervisor and stated that she is not going to leave until she gets what she wants. The patient having no identifiable medical emergency, I am going to discharge her. Departure - Departure Time of Disposition: 08:00 Disposition: Home, Self-Care 01 Condition: Good Clinical Impression: Fatigue - Discharge Information *PRESCRIPTION DRUG MONITORING PROGRAM REVIEWED*: Not Applicable *COPY OF PRESCRIPTION DRUG MONITORING REPORT IN PATIENT BUSTER: Not Applicable Referrals: Liz Damon PA [Ordering Only Provider] - Forms: ED Department Discharge Additional Instructions: You were seen in the emergency room for 1 week of progressively worsening fatigue, weakness, feeling dehydrated, insomnia, and a few days of a headache, felt due to an Addisonian crisis. Work-up in the ER included a CBC, CMP, and magnesium level. Your entire work-up was unremarkable. Your sodium level is not low, your potassium level is not high, and your blood pressure is not low. You are not suffering an Addisonian crisis. You were treated with a liter of IV fluid in the ER. Your case was discussed with the Silverware Cleaner Dr. Saleh at [facility]. He felt that your diagnosis of [place] disease could be in error, and even if you do have [place] disease, that you are on way too much hydrocortisone - the maximum dose would be 20 mg in the morning and 10 mg in the evening. The dosage that you are on is nearly a stress dose of steroids. He felt that your steroid dosage needs to be tapered over time, and that it would be best done by the Silverware Cleaner that you intend to see soon. He advised against you being given any additional steroids today. If any other problems, please do not hesitate to return to the ER. Sepsis Event Note (ED) - Evaluation Sepsis Screening Result: No Definite Risk - Focused Exam Vital Signs: Vital Signs Temp Pulse Resp BP Pulse Ox 07/22/21 06:03 36.9 C 73 16 144/108 H 98 - My Orders Last 24 Hours: My Active Orders 07/22/21 06:47 CBC WITH MANUAL DIFF [HEME] Stat Sodium Chloride 0.9% [Normal Saline] 1,000 ml IV ONETIME - Assessment/Plan Last 24 Hours: My Active Orders 07/22/21 06:47 CBC WITH MANUAL DIFF [HEME] Stat Sodium Chloride 0.9% [Normal Saline] 1,000 ml IV ONETIME
== END 2021-07-22 08:29 | disposition home or self-care (01) ==
LOC: JD.ED 05:49
DX: R53.83 Other fatigue (principal); I10 Essential (primary) hypertension; K21.9 Gastro-esophageal reflux disease without esophagitis; Z88.0 Allergy status to penicillin; Z88.1 Allergy status to other antibiotic agents; Z88.5 Allergy status to narcotic agent; Z79.899 Other long term (current) drug therapy
CPT/HCPCS: 36415; 80053; 83735; 85007; 85027; 99284; J7030

== ENCOUNTER 2021-10-10 08:52 | Emergency (ER) | payer BC, MEDICAID ==
[2021-10-10] MEDS ORDERED: Ketorolac 15 MG/ML SDV IM ONE (09:49)
--- NOTE | 2021-10-10 09:52 | EDM.PDOC ---
ED HPI GENERAL MEDICAL PROBLEM - General Chief Complaint: Genitourinary Problem Stated Complaint: ABDOMINAL PAIN Time Seen by Provider: 10/10/21 09:40 Source of Information: Reports: Patient History Limitations: Reports: No Limitations - History of Present Illness INITIAL COMMENTS - FREE TEXT/NARRATIVE: Patient 46-year-old female with a chief complaint of dysuria, urgency and s uprapubic discomfort. Patient reports symptoms started yesterday. She states symptoms have gradually worsened. She reports some lower back pain that is developing. Otherwise, she denies any fevers, nausea, vomiting, body aches. She states she has had antibiotics in the past to alleviate the symptoms but does not frequently get urinary tract infections. She denies any vaginal discharge or vaginal bleeding. Denies any risks of sexually transmitted infections. Patient also complaining of mild headache and requesting refill of prescription for her prescription headache medication. States headache is very slight and she otherwise will follow up with her primary care physician. Abdomen Pain Score (Numeric/FACES): 5 - Related Data Allergies Allergy/AdvReac Type Severity Reaction Status Date / Time amoxicillin Allergy Severe Rash Verified 10/10/21 09:09 azithromycin Allergy Severe Vomiting, Verified 10/10/21 09:09 hives doxycycline Allergy Severe Vomiting, Verified 10/10/21 09:09 hives morphine Allergy Severe Vomiting, Verified 10/10/21 09:09 Itching, hyperactivity. nystatin Allergy Severe Rash Verified 10/10/21 09:09 Penicillins Allergy Severe Vomiting, Verified 10/10/21 09:09 hives Home Meds: Home Meds Famotidine 40 mg PO DAILY 03/04/18 [History] Fluticasone Propionate [Flovent] 1 puff IH DAILY 03/04/18 [History] Metoprolol Succinate 50 mg PO DAILY 03/04/18 [History] Meclizine [Antivert] 25 mg PO Q6H PRN #20 tab 11/12/18 [Rx] Esomeprazole Magnesium [Nexium] 1 cap PO QAM #14 capsule. 06/19/19 [Rx] Dicyclomine [Bentyl] 20 mg PO QID PRN 10/23/19 [History] Hydrocortisone 20 mg PO QPM 10/23/19 [History] Hydrocortisone 30 mg PO QAM 10/23/19 [History] traZODone HCl [Trazodone HCl] 50 mg PO BEDTIME 05/19/20 [History] amLODIPine Besylate [Amlodipine Besylate] 10 mg PO DAILY 06/19/20 [History] Ondansetron [Zofran ODT] 4 mg PO Q6H PRN #10 tab.dis 02/15/21 [Rx] Butalb/Acetaminophen/Caffeine [Shqcff-Wypwtdff-Trbs 50-325-40] 1 - 2 tab PO DAILY PRN 10/10/21 [History] Ciprofloxacin HCl [Cipro] 250 mg PO BID #14 tablet 10/10/21 [Rx] Past Medical History HEENT History: Reports: Other (See Below) Cardiovascular History: Reports: Hypertension Respiratory History: Reports: Asthma Gastrointestinal History: Reports: Diverticulosis, Gastritis, GERD Genitourinary History: Reports: Renal Calculus DEAN OF ADMISSIONS History: Reports: Musculoskeletal History: Reports: Osteoarthritis Neurological History: Reports: Migraines Psychiatric History: Reports: Other (See Below) (Insomnia) 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 Dermatologic History: Reports: Eczema, Psoriasis - Infectious Disease History Infectious Disease History: Reports: Chicken Pox - Past Surgical History HEENT Surgical History: Reports: Adenoidectomy, Tonsillectomy GI Surgical History: Reports: Colonoscopy, EGD, Hernia, Abdominal Female Surgical History: Reports: Section, Lithotripsy/ESWL, Tubal Ligation Social & Family History - Family History Family Medical History: No Pertinent Family History - Tobacco Use Tobacco Use Status *Q: Never Tobacco User - Caffeine Use Caffeine Use: Reports: Soda - Recreational Drug Use Recreational Drug Use: No - Living Situation & Occupation Living situation: Reports: , with Family (2 sons) 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[place]) ED ROS GENERAL - Review of Systems Review Of Systems: See Below Free Text/Narrative/Comment: In addition to that documented in the HPI above, the additional ROS was obtained: Constitutional: Denies fevers or chills Eyes: Denies vision changes ENMT: Denies sore throat CV: Denies chest pain Resp: Denies SOB GI: Denies vomiting or diarrhea : Per HPI MSK: Denies recent trauma Skin: Denies new rashes Neuro: Denies new numbness or tingling or weakness ED EXAM, RENAL/ - Physical Exam Exam: See Below Text/Narrative:: I have reviewed the triage vital signs Const: Well nourished, well developed, appears stated age Eyes: no conjunctival injection HENT: No signs of trauma or swelling, Neck supple without meningismus CV: Regular Rate Rhythm, Warm, well-perfused extremities RESP: Unlabored respiratory effort MSK: No gross deformities appreciated Skin: Warm, dry. No rashes Neuro: Alert, transformer stock clerk II-XII grossly intact. Sensation and motor function of extremities grossly intact. Psych: Appropriate mood and affect. Course - Vital Signs Last Recorded V/S: Last Vital Signs Temp 36.1 C 10/10/21 09:05 Pulse 85 10/10/21 09:05 Resp 16 10/10/21 09:05 BP 136/91 H 10/10/21 09:05 Pulse Ox 95 10/10/21 09:05 - Orders/Labs/Meds Labs: Laboratory Tests 10/10/21 Range/Units 09:15 Urine Color [place] H (Yellow) Urine Appearance Slt cloudy H (Clear) Urine pH 6.0 (5.0-8.0) Ur Specific [place] 1.015 (1.005-1.030) Urine Protein 2+ H (Negative) Urine Glucose (UA) Trace H (Negative) Urine Ketones Trace H (Negative) Urine Occult Blood Trace-intact H (Negative) Urine Nitrite Positive H (Negative) Urine Bilirubin 1+ H (Negative) Urine Urobilinogen 2.0 H (0.2-1.0) Ur Leukocyte Esterase 3+ H (Negative) Urine RBC 0-5 (0-5) /hpf Urine WBC 20-30 H (0-5) /hpf Ur Squamous Epith Cells 0-5 (0-5) /hpf Urine Bacteria Few (FEW) /hpf Urine Mucus Not seen (FEW) /hpf Meds: Medications Discontinued Medications Generic Name Dose Route Start Last Admin Trade Name Freq PRN Reason Stop Dose Admin Ketorolac Tromethamine 15 mg 10/10/21 09:49 Ketorolac 15 Mg/Ml Sdv IM 10/10/21 09:50 ONETIME ONE Departure - Departure Time of Disposition: 09:51 Disposition: Home, Self-Care 01 Clinical Impression: UTI, Urinary tract infectious disease - Discharge Information Prescriptions: Ciprofloxacin HCl [Cipro] 250 mg PO BID #14 tablet Instructions: Urinary Tract Infection, Adult, [id number] Referrals: PCP,None [Primary Care Provider] - Forms: ED Department Discharge Additional Instructions: Take full course of antibiotics. Return should you develop worsening symptoms such as fever, inability to tolerate oral antibiotics or if you have any other emergent concerns. Sepsis Event Note (ED) - Evaluation Sepsis Screening Result: No Definite Risk - Focused Exam Vital Signs: Vital Signs Temp Pulse Resp BP Pulse Ox 10/10/21 09:05 36.1 C 85 16 136/91 H 95 - Assessment/Plan Assessment:: Patient is a 46-year-old female presenting with symptoms consistent with urinary tract infection. This is consistent with her urinalysis. She is not demonstrating any signs of sepsis or pyelonephritis. I did give her Toradol for her headache. I told her she needs to follow-up with her primary care physician for her regular headache medication. We discussed appropriate return precautions. Patient agrees with plan of care. Discharged in stable condition.
== END 2021-10-10 10:22 | disposition home or self-care (01) ==
LOC: JD.ED 08:52
DX: N39.0 Urinary tract infection, site not specified (principal); I10 Essential (primary) hypertension; M19.90 Unspecified osteoarthritis, unspecified site; K21.9 Gastro-esophageal reflux disease without esophagitis; Z88.0 Allergy status to penicillin; Z88.1 Allergy status to other antibiotic agents; Z88.5 Allergy status to narcotic agent; Z79.899 Other long term (current) drug therapy
CPT/HCPCS: 81001; 96372; 99283; J1885

== ENCOUNTER 2024-09-28 06:38 | Emergency (ER) | payer BC, MEDICAID ==
[2024-09-28] MEDS ORDERED: Sodium Chloride 0.9% 10 ML Syringe FLUSH PRN (07:09)
[2024-09-28] MEDS: Metoclopramide 10 MG/2 ML SDV IVPUSH ONE (07:17)
[2024-09-28] MEDS: HYDROmorphone 0.5 MG/0.5 ML Syringe IVPUSH ONE (07:17)
[2024-09-28 07:18] LABS: BASOPHILS ABSOLUTE AUTO 0.1 K/mm3 (0.0-0.2); BASOPHILS PERCENT AUTO 0.8 % (0.0-1.0); EOSINOPHILS ABSOLUTE AUTO 0.1 K/mm3 (0.0-0.4); EOSINOPHILS PERCENT AUTO 0.4 % (0.0-6.0); HEMATOCRIT 41.9 % (37.0-47.0); HEMOGLOBIN 14.1 gm/dl (12.0-16.0); IMMATURE GRAN ABSOLUTE AUTO 0.18 K/mm3 (0.00-0.05); IMMATURE GRAN PERCENT AUTO 1.4 % (0.0-0.4); LYMPHOCYTES ABSOLUTE AUTO 1.5 K/mm3 (1.0-4.8); LYMPHOCYTES PERCENT AUTO 11.5 % (24.0-44.0); MEAN CORPUSCULAR HEMOGLOBIN 27.9 pg (28.0-32.0); MEAN CORPUSCULAR HGB CONC 33.7 g/dl (32.0-36.0); MONOCYTES ABSOLUTE AUTO 0.8 K/mm3 (0.0-0.8); MONOCYTES PERCENT AUTO 6.4 % (0.0-8.0); NEUTROPHILS ABSOLUTE AUTO 10.5 K/mm3 (1.8-7.7); NEUTROPHILS PERCENT AUTO 79.5 % (41.0-71.0); PLATELET COUNT,PLT 438 K/mm3 (150-400); RED BLOOD CELL COUNT 5.05 M/mm3 (4.10-5.30); WHITE BLOOD CELL COUNT,WBC 13.14 K/mm3 (3.9-11.3)
[2024-09-28] MEDS: Sodium Chloride 0.9% 1,000 ML IV SCH (07:18)
[2024-09-28] MEDS: Iopamidol 612 MG/ML 30 ML SDV IVPUSH ONE (07:30)
[2024-09-28] MEDS: Sodium Chloride 0.9% 10 ML Syringe FLUSH ONE (07:30)
[2024-09-28] MEDS: Iopamidol 612 MG/ML 100 ML Bottle IVPUSH ONE (07:30)
[2024-09-28 07:34] LABS: ALBUMIN 4.1 g/dl (3.4-5.0); ANION GAP 20.5 (5-15); BILIRUBIN TOTAL 0.4 mg/dL (0.2-1.0); BUN/CREATININE RATIO 12.9 (14-18); C-REACTIVE PROTEIN 0.44 mg/dL (<0.30); CALCIUM 8.6 mg/dL (8.5-10.1); CREATININE 1.4 mg/dL (0.55-1.02); EST CRCL DRUG DOSING (CG) 34.15 mL/min; MAGNESIUM 1.6 mg/dL (1.8-2.4); POTASSIUM,K 3.5 mEq/L (3.5-5.1); PROTEIN TOTAL,TP 8.1 g/dl (6.4-8.2)
[2024-09-28 08:36] LABS: APPEARANCE,URINE CLEAR (Clear); BILIRUBIN,URINE NEGATIVE (Negative); COLOR,URINE YELLOW (Yellow); GLUCOSE,URINE NEGATIVE (Negative); KETONES,URINE NEGATIVE (Negative); LEUKOCYTE ESTERASE,URINE NEGATIVE (Negative); NITRITE,URINE NEGATIVE (Negative); OCCULT BLOOD,URINE NEGATIVE (Negative); PROTEIN,URINE TRACE (Negative); UROBILINOGEN,URINE 0.2 (0.2-1.0)
[2024-09-28 08:42] LABS: BACTERIA,URINE FEW /hpf (FEW); MUCUS,URINE FEW /hpf (FEW); RBC,URINE 0-5 /hpf (0-5); WBC,URINE 0-5 /hpf (0-5)
[2024-09-28] MEDS: methylPREDNISolone Sodium Succinate 125 MG/2 ML SDV IVPUSH ONE (09:06)
== END 2024-09-28 09:47 | disposition home or self-care (01) ==
LOC: JD.ED 06:38
DX: J18.9 Pneumonia, unspecified organism (principal); I10 Essential (primary) hypertension; Z88.0 Allergy status to penicillin; Z88.1 Allergy status to other antibiotic agents; Z88.5 Allergy status to narcotic agent; Z88.8 Allergy status to other drugs, medicaments and biological substances; Z79.899 Other long term (current) drug therapy
CPT/HCPCS: 36415; 71045; 74177; 80053; 81001; 83735; 84484; 85025; 86140; 87428; 93005; 96361; 96374; 96375; 99285; J1171; J2765; J2919; J7030; Q9967

== ENCOUNTER 2025-05-12 08:35 | Emergency (ER) | payer OTHER ==
[2025-05-12 09:21] LABS: APPEARANCE,URINE SLT CLOUDY (Clear); GLUCOSE,URINE NEGATIVE (Negative); OCCULT BLOOD,URINE NEGATIVE (Negative)
== END 2025-05-12 10:10 | disposition home or self-care (01) ==
LOC: JD.ED 08:35
DX: S39.012A Strain of muscle, fascia and tendon of lower back, initial encounter (principal); N30.00 Acute cystitis without hematuria; I10 Essential (primary) hypertension; J45.909 Unspecified asthma, uncomplicated; Z88.0 Allergy status to penicillin; Z88.1 Allergy status to other antibiotic agents; Z88.5 Allergy status to narcotic agent; Z88.8 Allergy status to other drugs, medicaments and biological substances; Z79.899 Other long term (current) drug therapy; W19.XXXA Unspecified fall, initial encounter
CPT/HCPCS: 72100; 72100-26; 81001; 87086; 87088; 87186; 99283

== ENCOUNTER 2025-06-30 11:06 | Inpatient (IN) | payer OTHER ==
[2025-06-30 13:22] LABS: BASOPHILS ABSOLUTE AUTO 0.0 K/mm3 (0.0-0.2); BASOPHILS PERCENT AUTO 0.5 % (0.0-1.0); EOSINOPHILS ABSOLUTE AUTO 0.1 K/mm3 (0.0-0.4); EOSINOPHILS PERCENT AUTO 0.9 % (0.0-6.0); IMMATURE GRAN ABSOLUTE AUTO 0.02 K/mm3 (0.00-0.05); IMMATURE GRAN PERCENT AUTO 0.3 % (0.0-0.4); LYMPHOCYTES ABSOLUTE AUTO 1.3 K/mm3 (1.0-4.8); LYMPHOCYTES PERCENT AUTO 16.2 % (24.0-44.0); MEAN PLATELET VOLUME 10.0 fl (9.4-12.3); MONOCYTES ABSOLUTE AUTO 0.7 K/mm3 (0.0-0.8); MONOCYTES PERCENT AUTO 9.2 % (0.0-8.0); NEUTROPHILS ABSOLUTE AUTO 5.6 K/mm3 (1.8-7.7); NEUTROPHILS PERCENT AUTO 72.9 % (41.0-71.0); NRBC ABSOLUTE 0.00 (0.00-0.02); NRBC PERCENT 0.0 % (0.0-0.2); PLATELET COUNT,PLT 274 K/mm3 (150-400); RED BLOOD CELL COUNT 3.98 M/mm3 (4.10-5.30); WHITE BLOOD CELL COUNT,WBC 7.70 K/mm3 (3.9-11.3)
[2025-06-30 13:42] LABS: A/G RATIO 1.1 (1-2); ALANINE AMINOTRANSFERASE,ALT 56.0 U/L (14-59); ASPARTATE AMNIOTRANSFERASE,AST 45.0 U/L (15-37); BILIRUBIN TOTAL 0.5 mg/dL (0.2-1.0); BLOOD UREA NITROGEN,BUN 17.0 mg/dL (7-18); CARBON DIOXIDE,CO2 27.0 mEq/L (21-32); CHLORIDE,CL 105.0 mEq/L (98-107); CREATININE 0.6 mg/dL (0.55-1.02); EST CRCL DRUG DOSING (CG) 79.68 mL/min; ESTIMATED GFR 109.0 mL/min (>60); GLUCOSE RANDOM 102.0 mg/dL (70-99); POTASSIUM,K 3.4 mEq/L (3.5-5.1); PROTEIN TOTAL,TP 7.5 g/dl (6.4-8.2); SODIUM,NA 142.0 mEq/L (136-145)
[2025-06-30] MEDS: Ondansetron 4 MG/2 ML SDV IVPUSH ONE (14:09)
[2025-06-30] MEDS: Sodium Chloride 0.9% 10 ML Syringe FLUSH PRN (14:19)
[2025-06-30] MEDS: Iopamidol 612 MG/ML 100 ML Bottle IVPUSH ONE (14:19)
[2025-06-30 14:23] LABS: APPEARANCE,URINE CLEAR (Clear); GLUCOSE,URINE NEGATIVE (Negative); OCCULT BLOOD,URINE NEGATIVE (Negative)
[2025-06-30 14:35] LABS: YEAST BUDDING,URINE FEW (NOT SEEN)
[2025-06-30 14:36] LABS: EPITHELIAL CELLS,URINE 0-5 /hpf (0-5)
[2025-06-30] MEDS: Sodium Chloride 0.9% 10 ML Syringe FLUSH ONE (16:21)
[2025-06-30] MEDS ORDERED: propofoL 500 MG/50 ML 50 ML ONE (18:34)
[2025-06-30] MEDS ORDERED: fentaNYL 250 MCG/5 ML SDV ONE (18:39)
[2025-06-30] MEDS ORDERED: Propofol 200 MG/20 ML SDV ONE ×2 (18:42→19:53)
[2025-06-30] MEDS ORDERED: dexmedeTOMIDine HCl 200 MCG/2 ML SDV ONE (18:48)
[2025-06-30] MEDS ORDERED: Ondansetron 4 MG/2 ML SDV ONE (19:00)
[2025-06-30] MEDS ORDERED: Lactated Ringers 1,000 ML ONE ×2 (19:22→20:15)
[2025-06-30] MEDS: EPINEPHrine 1 MG/ML SDV ONE (20:03)
[2025-06-30] MEDS ORDERED: fentaNYL 100 MCG/2 ML SDV ONE (20:06)
[2025-06-30] MEDS ORDERED: Ketorolac 30 MG/ML SDV ONE (20:11)
[2025-06-30 21:05] LABS: PHOSPHORUS 3.9 mg/dL (2.6-4.7)
[2025-06-30] MEDS ORDERED: fentaNYL 100 MCG/2 ML SDV IVPUSH PRN (21:45)
[2025-06-30] MEDS: Lactated Ringers 1,000 ML IV SCH (23:02)
[2025-07-01] MEDS: Hydrocortisone Sodium Succinate 100 MG/2 ML SDV IVPUSH ONE (00:58)
[2025-07-01] MEDS: Hydrocortisone Sodium Succinate 100 MG/2 ML SDV IVPUSH SCH (04:50)
[2025-07-01 05:38] LABS: MEAN PLATELET VOLUME 10.6 fl (9.4-12.3); NRBC ABSOLUTE 0.00 (0.00-0.02); NRBC PERCENT 0.0 % (0.0-0.2); PLATELET COUNT,PLT 210 K/mm3 (150-400); RED BLOOD CELL COUNT 3.67 M/mm3 (4.10-5.30); WHITE BLOOD CELL COUNT,WBC 9.39 K/mm3 (3.9-11.3)
[2025-07-01 05:51] LABS: A/G RATIO 0.9 (1-2); ALANINE AMINOTRANSFERASE,ALT 45.0 U/L (14-59); ASPARTATE AMNIOTRANSFERASE,AST 29.0 U/L (15-37); BILIRUBIN TOTAL 0.6 mg/dL (0.2-1.0); BLOOD UREA NITROGEN,BUN 9.0 mg/dL (7-18); CARBON DIOXIDE,CO2 28.0 mEq/L (21-32); CHLORIDE,CL 104.0 mEq/L (98-107); CREATININE 0.4 mg/dL (0.55-1.02); EST CRCL DRUG DOSING (CG) 119.52 mL/min; ESTIMATED GFR 120.0 mL/min (>60); GLUCOSE RANDOM 135.0 mg/dL (70-99); POTASSIUM,K 3.4 mEq/L (3.5-5.1); PROTEIN TOTAL,TP 6.7 g/dl (6.4-8.2); SODIUM,NA 139.0 mEq/L (136-145)
[2025-07-01] MEDS: Acetaminophen/Butalbital/Caffeine 325-50-40 MG Tab PO PRN (13:08)
[2025-07-01] MEDS ORDERED: Acetaminophen/Butalbital/Caffeine 325-50-40 MG Tab PO PRN (17:19)
[2025-07-01] MEDS ORDERED: Ketorolac 15 MG/ML SDV IVPUSH PRN (18:21)
[2025-07-01] MEDS: Ondansetron 4 MG/2 ML SDV IV PRN (18:57)
[2025-07-02 05:58] LABS: A/G RATIO 0.8 (1-2); ALANINE AMINOTRANSFERASE,ALT 38.0 U/L (14-59); ASPARTATE AMNIOTRANSFERASE,AST 20.0 U/L (15-37); BILIRUBIN TOTAL 0.5 mg/dL (0.2-1.0); BLOOD UREA NITROGEN,BUN 5.0 mg/dL (7-18); CARBON DIOXIDE,CO2 31.0 mEq/L (21-32); CHLORIDE,CL 99.0 mEq/L (98-107); CREATININE 0.4 mg/dL (0.55-1.02); EST CRCL DRUG DOSING (CG) 119.52 mL/min; ESTIMATED GFR 120.0 mL/min (>60); GLUCOSE RANDOM 117.0 mg/dL (70-99); POTASSIUM,K 3.3 mEq/L (3.5-5.1); PROTEIN TOTAL,TP 7.0 g/dl (6.4-8.2); SODIUM,NA 138.0 mEq/L (136-145)
[2025-07-02 06:27] LABS: MEAN PLATELET VOLUME 10.2 fl (9.4-12.3); NRBC ABSOLUTE 0.00 (0.00-0.02); NRBC PERCENT 0.0 % (0.0-0.2); PLATELET COUNT,PLT 263 K/mm3 (150-400); RED BLOOD CELL COUNT 3.77 M/mm3 (4.10-5.30); WHITE BLOOD CELL COUNT,WBC 8.56 K/mm3 (3.9-11.3)
[2025-07-02] MEDS: D5 1/2 NS w/ 20 mEq/L KCl 1,000 ML IV SCH (09:01)
[2025-07-02] MEDS: Potassium Chloride 20 MEQ Tab.ER PO ONE (09:05)
[2025-07-02] MEDS: Hydrocortisone Sodium Succinate 100 MG/2 ML SDV IVPUSH SCH (16:23)
[2025-07-03 05:27] LABS: MEAN PLATELET VOLUME 10.0 fl (9.4-12.3); NRBC ABSOLUTE 0.00 (0.00-0.02); NRBC PERCENT 0.0 % (0.0-0.2); PLATELET COUNT,PLT 291 K/mm3 (150-400); RED BLOOD CELL COUNT 3.98 M/mm3 (4.10-5.30); WHITE BLOOD CELL COUNT,WBC 7.47 K/mm3 (3.9-11.3)
[2025-07-03 06:18] LABS: A/G RATIO 0.7 (1-2); ALANINE AMINOTRANSFERASE,ALT 31.0 U/L (14-59); ASPARTATE AMNIOTRANSFERASE,AST 14.0 U/L (15-37); BILIRUBIN TOTAL 0.4 mg/dL (0.2-1.0); BLOOD UREA NITROGEN,BUN 5.0 mg/dL (7-18); CARBON DIOXIDE,CO2 31.0 mEq/L (21-32); CHLORIDE,CL 103.0 mEq/L (98-107); CREATININE 0.4 mg/dL (0.55-1.02); EST CRCL DRUG DOSING (CG) 119.52 mL/min; ESTIMATED GFR 120.0 mL/min (>60); GLUCOSE RANDOM 112.0 mg/dL (70-99); POTASSIUM,K 2.9 mEq/L (3.5-5.1); PROTEIN TOTAL,TP 7.1 g/dl (6.4-8.2); SODIUM,NA 140.0 mEq/L (136-145)
[2025-07-03] MEDS: Hydrocortisone Sodium Succinate 100 MG/2 ML SDV IVPUSH ONE (08:40)
[2025-07-03] MEDS: Acetaminophen/Butalbital/Caffeine 325-50-40 MG Tab PO PRN (08:58)
[2025-07-03] MEDS: Potassium Chloride 20 MEQ Tab.ER PO SCH (14:52)
[2025-07-04 05:57] LABS: MEAN PLATELET VOLUME 10.3 fl (9.4-12.3); NRBC ABSOLUTE 0.00 (0.00-0.02); NRBC PERCENT 0.0 % (0.0-0.2); PLATELET COUNT,PLT 300 K/mm3 (150-400); RED BLOOD CELL COUNT 3.77 M/mm3 (4.10-5.30); WHITE BLOOD CELL COUNT,WBC 7.22 K/mm3 (3.9-11.3)
[2025-07-04 06:20] LABS: A/G RATIO 0.7 (1-2); ALANINE AMINOTRANSFERASE,ALT 29.0 U/L (14-59); ASPARTATE AMNIOTRANSFERASE,AST 16.0 U/L (15-37); BILIRUBIN TOTAL 0.3 mg/dL (0.2-1.0); BLOOD UREA NITROGEN,BUN 15.0 mg/dL (7-18); CARBON DIOXIDE,CO2 27.0 mEq/L (21-32); CHLORIDE,CL 105.0 mEq/L (98-107); CREATININE 0.6 mg/dL (0.55-1.02); EST CRCL DRUG DOSING (CG) 79.68 mL/min; ESTIMATED GFR 109.0 mL/min (>60); GLUCOSE RANDOM 106.0 mg/dL (70-99); POTASSIUM,K 3.7 mEq/L (3.5-5.1); PROTEIN TOTAL,TP 6.8 g/dl (6.4-8.2); SODIUM,NA 140.0 mEq/L (136-145)
[2025-07-05 07:42] LABS: A/G RATIO 0.7 (1-2); ALANINE AMINOTRANSFERASE,ALT 32.0 U/L (14-59); ASPARTATE AMNIOTRANSFERASE,AST 20.0 U/L (15-37); BILIRUBIN TOTAL 0.3 mg/dL (0.2-1.0); BLOOD UREA NITROGEN,BUN 14.0 mg/dL (7-18); CARBON DIOXIDE,CO2 28.0 mEq/L (21-32); CHLORIDE,CL 103.0 mEq/L (98-107); CREATININE 0.5 mg/dL (0.55-1.02); EST CRCL DRUG DOSING (CG) 95.61 mL/min; ESTIMATED GFR 113.0 mL/min (>60); GLUCOSE RANDOM 112.0 mg/dL (70-99); POTASSIUM,K 3.6 mEq/L (3.5-5.1); PROTEIN TOTAL,TP 6.8 g/dl (6.4-8.2); SODIUM,NA 141.0 mEq/L (136-145)
[2025-07-05] MEDS: Potassium Chloride 20 MEQ Tab.ER PO ONE (10:57)
[2025-07-06 05:23] LABS: A/G RATIO 0.7 (1-2); ALANINE AMINOTRANSFERASE,ALT 29.0 U/L (14-59); ASPARTATE AMNIOTRANSFERASE,AST 15.0 U/L (15-37); BILIRUBIN TOTAL 0.2 mg/dL (0.2-1.0); BLOOD UREA NITROGEN,BUN 15.0 mg/dL (7-18); CARBON DIOXIDE,CO2 26.0 mEq/L (21-32); CHLORIDE,CL 106.0 mEq/L (98-107); CREATININE 0.5 mg/dL (0.55-1.02); EST CRCL DRUG DOSING (CG) 95.61 mL/min; ESTIMATED GFR 113.0 mL/min (>60); GLUCOSE RANDOM 99.0 mg/dL (70-99); POTASSIUM,K 3.7 mEq/L (3.5-5.1); PROTEIN TOTAL,TP 6.8 g/dl (6.4-8.2); SODIUM,NA 141.0 mEq/L (136-145)
[2025-07-06] MEDS ORDERED: Naloxone 0.4 MG/ML SDV IVPUSH PRN (05:48)
== END 2025-07-07 10:55 | disposition home or self-care (01) | DRG 330 ==
LOC: JD.ED 11:06 → JD.SDS 19:32 → JD.MS 22:37 → JD.SDS 07-01 02:05
PROVIDERS: ADMIT Surgery; ATTEND Surgery
PROC: 0DBN0ZZ Excision of Sigmoid Colon, Open Approach (ICD-10-PCS; principal; 2025-07-01)
DX: K56.609 Unspecified intestinal obstruction, unspecified as to partial versus complete obstruction (principal); E27.1 Primary adrenocortical insufficiency; N30.00 Acute cystitis without hematuria; K59.01 Slow transit constipation; H54.7 Unspecified visual loss; I10 Essential (primary) hypertension; J45.909 Unspecified asthma, uncomplicated; H81.10 Benign paroxysmal vertigo, unspecified ear; K80.20 Calculus of gallbladder without cholecystitis without obstruction; N20.0 Calculus of kidney; M19.90 Unspecified osteoarthritis, unspecified site; G43.909 Migraine, unspecified, not intractable, without status migrainosus; Z90.49 Acquired absence of other specified parts of digestive tract; Z98.890 Other specified postprocedural states; Z98.891 History of uterine scar from previous surgery; Z98.51 Tubal ligation status; Z79.899 Other long term (current) drug therapy
CPT/HCPCS: 36415; 74177; 74177-26; 80053; 81001; 82533; 83735; 84100; 85025; 85027; 86140; 87086; 87088; 87186; 94761; 96361; 96374; 96375; 99285; 99285-25; A9270-GY; J0169; J0665; J0694; J0696; J1171; J1650; J1720; J1885; J2405; J2704; J3010; J3480; J3490; J7030; J7120; Q0169; Q9967

== ENCOUNTER 2025-08-05 05:53 | Day surgery (SDC) | payer OTHER ==
[~2025-08-05 05:53] MED LIST: Sodium Chloride 0.9% 10 ML Syringe FLUSH PRN; Sodium Chloride 0.9% 10 ML Syringe FLUSH SCH
[2025-08-05] MEDS: Lactated Ringers 1,000 ML IV SCH (06:10)
[2025-08-05] MEDS ORDERED: Dexamethasone 4 MG/ML SDV ONE (06:57)
[2025-08-05] MEDS ORDERED: Propofol 200 MG/20 ML SDV ONE ×2 (06:57→07:20)
[2025-08-05] MEDS ORDERED: Ondansetron 4 MG/2 ML SDV ONE (06:57)
[2025-08-05] MEDS ORDERED: Ondansetron 4 MG/2 ML SDV IVPUSH PRN (07:39)
[2025-08-05] MEDS ORDERED: fentaNYL 100 MCG/2 ML SDV IVPUSH PRN (07:39)
== END 2025-08-05 08:30 | disposition home or self-care (01) ==
LOC: JD.SDS 05:53
PROVIDERS: ATTEND Surgery
DX: K94.09 Other complications of colostomy (principal); K21.9 Gastro-esophageal reflux disease without esophagitis; Z88.1 Allergy status to other antibiotic agents; Z88.0 Allergy status to penicillin; Z88.8 Allergy status to other drugs, medicaments and biological substances; Z88.5 Allergy status to narcotic agent; Z79.899 Other long term (current) drug therapy
CPT/HCPCS: 44405; J1100; J2405; J2704; J7120; 00811

== ENCOUNTER 2025-08-31 07:57 | Inpatient (IN) | payer OTHER ==
[~2025-08-31 07:57] MED LIST changes: -Sodium Chloride 0.9% 10 ML Syringe FLUSH SCH
[2025-08-31] MEDS: Lactated Ringers 1,000 ML IV SCH ×2 (08:45→16:29)
[2025-08-31] MEDS ORDERED: Midazolam 1 MG/ML 2 ML SDV ONE (09:17)
[2025-08-31] MEDS ORDERED: fentaNYL 100 MCG/2 ML SDV ONE ×4 (09:17→13:51)
[2025-08-31] MEDS ORDERED: dexmedeTOMIDine HCl 200 MCG/2 ML SDV ONE ×2 (09:24→13:52)
[2025-08-31] MEDS ORDERED: Esmolol 100 MG/10 ML SDV ONE (09:24)
[2025-08-31] MEDS: Heparin Sodium 5,000 Units/ML Vial SUBCUT ONE (09:45)
[2025-08-31] MEDS ORDERED: Ketamine HCL/NACL, ISO-OSM 50 MG/5 ML Syringe ONE (09:49)
[2025-08-31] MEDS ORDERED: Ondansetron 4 MG/2 ML SDV IVPUSH PRN (10:13)
[2025-08-31] MEDS ORDERED: ePHEDrine 50 MG/ML SDV IVPUSH PRN (10:13)
[2025-08-31] MEDS ORDERED: diphenhydrAMINE 50 MG/ML SDV IVPUSH PRN ×2 (10:13→14:46)
[2025-08-31] MEDS ORDERED: Morphine PF 10 MG/10 ML SDV ONE (10:16)
[2025-08-31] MEDS ORDERED: propofoL 1,000 MG/100 ML 200 ML ONE (10:18)
[2025-08-31] MEDS ORDERED: ePHEDrine 50 MG/ML SDV ONE (10:23)
[2025-08-31] MEDS: EPINEPHrine 1 MG/ML SDV ONE (10:58)
[2025-08-31] MEDS ORDERED: Hydrocortisone Sodium Succinate 100 MG/2 ML SDV ONE (11:00)
[2025-08-31] MEDS ORDERED: Lactated Ringers 1,000 ML ONE (11:39)
[2025-08-31] MEDS ORDERED: propofoL 500 MG/50 ML 0 ML ONE (12:32)
[2025-08-31] MEDS ORDERED: propofoL 500 MG/50 ML 50 ML ONE (12:57)
[2025-08-31] MEDS ORDERED: Propofol 200 MG/20 ML SDV ONE (12:58)
[2025-08-31] MEDS ORDERED: Ropivacaine 0.5% 5 MG/ML 30 ML SDV ONE (13:52)
[2025-08-31] MEDS ORDERED: Bupivicaine/fentaNYL/NS 250 ML EPIDUR ONE (14:00)
[2025-08-31] MEDS ORDERED: Benzocaine/Cetylpyridinium/Menthol Lozenge MUCMEM PRN (14:44)
[2025-08-31] MEDS: Ketorolac 30 MG/ML SDV IVPUSH PRN (15:24)
[2025-08-31] MEDS: Sodium Chloride 0.9% 10 ML Syringe FLUSH SCH (16:31)
[2025-08-31] MEDS: Bupivacaine/fentaNYL/NS 100 ML Bag EPIDUR PRN (22:16)
[2025-09-01 04:30] LABS: BASOPHILS ABSOLUTE AUTO 0.0 K/mm3 (0.0-0.2); BASOPHILS PERCENT AUTO 0.1 % (0.0-1.0); EOSINOPHILS ABSOLUTE AUTO 0.1 K/mm3 (0.0-0.4); EOSINOPHILS PERCENT AUTO 1.6 % (0.0-6.0); IMMATURE GRAN ABSOLUTE AUTO 0.02 K/mm3 (0.00-0.05); IMMATURE GRAN PERCENT AUTO 0.3 % (0.0-0.4); LYMPHOCYTES ABSOLUTE AUTO 1.4 K/mm3 (1.0-4.8); LYMPHOCYTES PERCENT AUTO 18.4 % (24.0-44.0); MEAN PLATELET VOLUME 10.5 fl (9.4-12.3); MONOCYTES ABSOLUTE AUTO 0.8 K/mm3 (0.0-0.8); MONOCYTES PERCENT AUTO 11.2 % (0.0-8.0); NEUTROPHILS ABSOLUTE AUTO 5.1 K/mm3 (1.8-7.7); NEUTROPHILS PERCENT AUTO 68.4 % (41.0-71.0); NRBC ABSOLUTE 0.00 (0.00-0.02); NRBC PERCENT 0.0 % (0.0-0.2); PLATELET COUNT,PLT 188 K/mm3 (150-400); RED BLOOD CELL COUNT 3.56 M/mm3 (4.10-5.30); WHITE BLOOD CELL COUNT,WBC 7.50 K/mm3 (3.9-11.3)
[2025-09-01 04:55] LABS: BLOOD UREA NITROGEN,BUN 9.0 mg/dL (7-18); CARBON DIOXIDE,CO2 25.0 mEq/L (21-32); CHLORIDE,CL 107.0 mEq/L (98-107); CREATININE 0.4 mg/dL (0.55-1.02); EST CRCL DRUG DOSING (CG) 118.17 mL/min; ESTIMATED GFR 119.0 mL/min (>60); GLUCOSE RANDOM 103.0 mg/dL (70-99); POTASSIUM,K 3.0 mEq/L (3.5-5.1); SODIUM,NA 140.0 mEq/L (136-145)
[2025-09-01] MEDS: Potassium Bicarbonate/Cit Ac 20 MEQ Effervescent Tab PO ONE (07:27)
[2025-09-01] MEDS: Ondansetron 4 MG Tab.DIS PO PRN (09:18)
[2025-09-01] MEDS: Midazolam 1 MG/ML 2 ML SDV IVPUSH ONE (21:21)
[2025-09-03] MEDS: Potassium Bicarbonate/Cit Ac 20 MEQ Effervescent Tab PO ONE (09:05)
[2025-09-04 05:30] LABS: MEAN PLATELET VOLUME 10.3 fl (9.4-12.3); NRBC ABSOLUTE 0.00 (0.00-0.02); NRBC PERCENT 0.0 % (0.0-0.2); PLATELET COUNT,PLT 234 K/mm3 (150-400); RED BLOOD CELL COUNT 3.89 M/mm3 (4.10-5.30); WHITE BLOOD CELL COUNT,WBC 8.25 K/mm3 (3.9-11.3)
[2025-09-04 05:43] LABS: BLOOD UREA NITROGEN,BUN 13.0 mg/dL (7-18); CARBON DIOXIDE,CO2 33.0 mEq/L (21-32); CHLORIDE,CL 102.0 mEq/L (98-107); CREATININE 0.5 mg/dL (0.55-1.02); EST CRCL DRUG DOSING (CG) 94.54 mL/min; ESTIMATED GFR 113.0 mL/min (>60); GLUCOSE RANDOM 106.0 mg/dL (70-99); POTASSIUM,K 3.2 mEq/L (3.5-5.1); SODIUM,NA 142.0 mEq/L (136-145)
== END 2025-09-04 12:26 | disposition home or self-care (01) | DRG 346 ==
LOC: JD.SDS 07:57 → JD.ICU 14:31 → JD.MS 09-02 18:23
PROVIDERS: ADMIT Surgery; ATTEND Surgery
PROC: 0DSN0ZZ Reposition Sigmoid Colon, Open Approach (ICD-10-PCS; principal; 2025-08-31 10:15)
DX: K56.609 Unspecified intestinal obstruction, unspecified as to partial versus complete obstruction (principal); H54.7 Unspecified visual loss; J45.909 Unspecified asthma, uncomplicated; M19.90 Unspecified osteoarthritis, unspecified site; G89.29 Other chronic pain; F41.9 Anxiety disorder, unspecified; Z86.16 Personal history of COVID-19; Z90.49 Acquired absence of other specified parts of digestive tract; Z88.0 Allergy status to penicillin; Z98.890 Other specified postprocedural states; Z88.8 Allergy status to other drugs, medicaments and biological substances; Z79.899 Other long term (current) drug therapy
CPT/HCPCS: 00840; 36415; 51702; 80048; 85025; 85027; 94761; A9270-GY; J0169; J0665; J0694; J1171; J1644; J1650; J1720; J1805; J1885; J2003; J2250; J2274; J2704; J2795; J3010; J3490; J7120; S5010

== ENCOUNTER 2025-09-12 10:58 | Emergency (ER) | payer OTHER, MEDICAID ==
[2025-09-12] MEDS ORDERED: Sodium Chloride 0.9% 10 ML Syringe FLUSH PRN (11:49)
[2025-09-12 12:04] LABS: MEAN PLATELET VOLUME 9.9 fl (9.4-12.3); NRBC ABSOLUTE 0.00 (0.00-0.02); NRBC PERCENT 0.0 % (0.0-0.2); PLATELET COUNT,PLT 357 K/mm3 (150-400); RED BLOOD CELL COUNT 4.75 M/mm3 (4.10-5.30); WHITE BLOOD CELL COUNT,WBC 13.13 K/mm3 (3.9-11.3)
[2025-09-12] MEDS: Ondansetron 4 MG/2 ML SDV IVPUSH ONE (12:13)
[2025-09-12 12:17] LABS: INR 0.98
[2025-09-12 12:18] LABS: A/G RATIO 0.9 (1-2); ALANINE AMINOTRANSFERASE,ALT 33.0 U/L (14-59); ASPARTATE AMNIOTRANSFERASE,AST 27.0 U/L (15-37); BILIRUBIN TOTAL 0.5 mg/dL (0.2-1.0); BLOOD UREA NITROGEN,BUN 15.0 mg/dL (7-18); CARBON DIOXIDE,CO2 21.0 mEq/L (21-32); CHLORIDE,CL 104.0 mEq/L (98-107); CREATININE 0.7 mg/dL (0.55-1.02); EST CRCL DRUG DOSING (CG) 94.84 mL/min; ESTIMATED GFR 104.0 mL/min (>60); GLUCOSE RANDOM 96.0 mg/dL (70-99); POTASSIUM,K 3.8 mEq/L (3.5-5.1); PROTEIN TOTAL,TP 8.3 g/dl (6.4-8.2); SODIUM,NA 139.0 mEq/L (136-145)
[2025-09-12 12:21] LABS: LACTIC ACID 1.4 mmol/L (0.4-2.0)
[2025-09-12] MEDS: Iopamidol 612 MG/ML 100 ML Bottle IVPUSH ONE (12:32)
[2025-09-12] MEDS: Sodium Chloride 0.9% 10 ML Syringe FLUSH PRN (12:32)
[2025-09-12 13:30] LABS: BAND PERCENT MAN 0 % (0-10); BASOPHILS PERCENT MAN 0 (0.1-1.2); EOSINOPHILS PERCENT MAN 1 % (0.7-5.8); LYMPHOCYTES % ATYPICAL MANUAL 0 %; LYMPHOCYTES PERCENT MAN 18 % (20-40); MONOCYTES PERCENT MAN 0 % (2-10)
[2025-09-12 13:50] LABS: PLATELET COUNT ESTIMATE ADEQUATE
== END 2025-09-12 15:44 | disposition home or self-care (01) ==
LOC: JD.ED 10:58
DX: T81.49XA Infection following a procedure, other surgical site, initial encounter (principal); L03.311 Cellulitis of abdominal wall; I10 Essential (primary) hypertension; J45.909 Unspecified asthma, uncomplicated; M19.90 Unspecified osteoarthritis, unspecified site; Z79.899 Other long term (current) drug therapy; Z88.1 Allergy status to other antibiotic agents; Z88.8 Allergy status to other drugs, medicaments and biological substances; Z88.0 Allergy status to penicillin; Z86.16 Personal history of COVID-19
CPT/HCPCS: 36415; 74177; 80053; 83605; 85007; 85027; 85610; 86140; 87040; 96361; 96374; 96375; 99284; A9270; J0696; J2405; J7030; Q9967; J1171